=== PATIENT | male | born 1955 | race African-American/Black ===

== ENCOUNTER 2016-12-19 11:25 | Inpatient (IN) | payer OTHER ==
[2016-12-19 14:34] VITALS: BMI 25.4
--- NOTE | 2016-12-19 14:45 | HP ---
CIWA Score - CIWA Score Nausea/Vomitin Muscle Tremors: 2 Anxiety: 2 Agitation: 2 Paroxysmal Sweats: 2 Orientation: 0-Oriented Tacttile Disturbances: 2-Mild Itch/Numbness/Burn Auditory Disturbances: 1-Very Mild Visual Disturbances: 1-Very Mild Sensitivity Headache: 2-Mild CIWA-Ar Total Score: 16 Admission ROS BHS - HPI Chief Complaint: "I need help, I have an apartment now" Allergies/Adverse Reactions: Allergies Allergy/AdvReac Type Severity Reaction Status Date / Time fish derived Allergy Intermediate Vomiting Verified 12/19/16 15:01 Penicillins Allergy Intermediate Vomiting Verified 12/19/16 15:01 [place] Allergy Intermediate Vomiting Uncoded 12/19/16 15:01 History of Present Illness: 61 y/o AA male with longstanding h/o alcohol dependence presents for rehab. His last treatment as he reports was in November of last year at [facility]. Exam Limitations: No Limitations - Ebola screening Have you traveled outside of the country in the last 21 days: No Have you had contact with anyone from an Ebola affected area: No Have you been sick,other than usual withdrawal symptoms: No Do you have a fever: No - Review of Systems Constitutional: Chills, Loss of Appetite, Unintentional Wgt. Loss Respiratory: reports: No Symptoms reported Cardiac: reports: Chest Pain GI: reports: Nausea, Poor Fluid Intake : reports: No Symptoms Reported Musculoskeletal: reports: Muscle Weakness Integumentary: reports: No Symptoms Reported Neuro: reports: Headache, Numbness, Tingling Endocrine: reports: Unexplained Weight Loss Hematology: reports: No Symptoms Reported Psychiatric: reports: No Sypmtoms Reported Other Systems: Reviewed and Negative Patient History - Patient Medical History Hx Anemia: No Hx Asthma: No Hx Chronic Obstructive Pulmonary Disease (COPD): No Hx Cancer: No Hx Cardiac Disorders: No Hx Congestive Heart Failure: No Hx Hypertension: No Hx Hypercholesterolemia: No Hx Pacemaker: No HX Cerebrovascular Accident: No Hx Seizures: No Hx Dementia: No Hx Diabetes: No Hx Gastrointestinal Disorders: No Hx Liver Disease: No Hx Genitourinary Disorders: No Hx Sexually Transmitted Disorders: No Hx Renal Disease (ESRD): No Hx Thyroid Disease: No Hx Human Immunodeficiency Virus (HIV): No Hx Hepatitis C: No Hx Depression: No Hx Suicide Attempt: No Hx Bipolar Disorder: Yes Hx Schizophrenia: No - Patient Surgical History Past Surgical History: Yes Hx Neurologic Surgery: No Hx Cataract Extraction: No Hx Cardiac Surgery: No Hx Lung Surgery: No Hx Breast Surgery: No Hx Breast Biopsy: No Hx Abdominal Surgery: No Hx Appendectomy: No Hx Cholecystectomy: No Hx Genitourinary Surgery: No Hx Section: No Hx Orthopedic Surgery: Yes (Rt leg ORIF) Anesthesia Reaction: No - Smoking Cessation Smoking history: Current every day smoker Have you smoked in the past 12 months: Yes Aproximately how many cigarettes per day: 10 Cigars Per Day: 0 Hx Chewing Tobacco Use: No Initiated information on smoking cessation: Yes 'Breaking Loose' booklet given: 12/19/16 - Substance & Tx. History Hx Alcohol Use: Yes (mauricioardi) Hx Substance Use: Yes Substance Use Type: Cocaine, Marijuana - Substances Abused Alcohol Route: Oral Frequency: Daily Amount used: 1.5 pint Age of first use: 18 Date of Last Use: 12/19/16 Family Disease History - Family Disease History Family Disease History: [place]: Mother (stomach, ) Admission Physical Exam [facility] - Vital Signs Vital Signs: Vital Signs - 24 hr 12/19/16 14:32 Temperature 97 F L Pulse Rate 81 Respiratory 20 Rate Blood Pressure 111/77 - Physical General Appearance: Yes: No Apparent Distress HEENTM: Yes: Hearing grossly Normal, Normocephalic, Normal Voice, Pharynx Normal Respiratory: Yes: Chest Non-Tender, Lungs Clear, Normal Breath Sounds, No Respiratory Distress, No Accessory Muscle Use Neck: Yes: No masses,lesions,Nodules, Supple Breast: Yes: Breast Exam Deferred Cardiology: Yes: Regular Rhythm, Regular Rate, S1, S2 Abdominal: Yes: Normal Bowel Sounds, Non Tender, Flat, Soft Genitourinary: Yes: Within Normal Limits Back: Yes: Normal Inspection Musculoskeletal: Yes: full range of Motion, Pelvis Stable, Muscle weakness Extremities: Yes: Non-Tender, Tremors, Other (fungus to the toes) Neurological: Yes: Fully Oriented, Alert, Normal Response Integumentary: Yes: Normal Color, Dry Lymphatic: Yes: Within Normal Limits Cleared for Admission [facility] - Detox or Rehab [facility] Level of Care: Medically Managed Detox Regimen/Protocol: Librium [facility] Breath Alcohol Content Breath Alcohol Content: 0 Urine Drug Screen - Results Drug Screen Negative: No Urine Drug Screen Results: THC-Marijuana, JAUN-Cocaine
[2016-12-19] MEDS ORDERED: guaiFENesin/D-METHORPHAN HB 10 ML UNIT-DOSE CUPS PO PRN (15:01)
[2016-12-19] MEDS ORDERED: NICOTINE POLACRILEX 2 MG GUM BC PRN (15:01)
[2016-12-19] MEDS ORDERED: chlordiazePOXIDE HCL 25 MG CAPSULE PO PRN (15:01)
[2016-12-19] MEDS ORDERED: MENTHOL/PHENOL 1 EACH UD MM PRN (15:01)
[2016-12-19] MEDS ORDERED: ACETAMINOPHEN 325 MG TABLET (FP) PO PRN (15:01)
[2016-12-19] MEDS ORDERED: MAG HYDROX/AL HYDROX/SIMETH 30 ML UNIT-DOSE CUP PO PRN (15:01)
[2016-12-19] MEDS ORDERED: LOPERAMIDE HCL 2 MG CAPSULE PO PRN (15:01)
[2016-12-19] MEDS ORDERED: MAGNESIUM CITRATE 300 ML BOTTLE PO PRN (15:01)
[2016-12-19] MEDS ORDERED: hydrOXYzine PAMOATE 50 MG CAPSULE (FP) PO PRN (15:01)
[2016-12-19] MEDS ORDERED: P-EPHED 60MG/TRIPROLIDI 2.5MG TABLET PO PRN (15:01)
[2016-12-19] MEDS ORDERED: chlordiazePOXIDE HCL 25 MG CAPSULE PO ONE (15:01)
[2016-12-19] MEDS ORDERED: IBUPROFEN 400 MG TABLET (FP) PO PRN (15:01)
[2016-12-19] MEDS ORDERED: MAGNESIUM HYDROX 2400MG/30ML ORAL SUSPENSION 30 ML CUP PO PRN (15:01)
[2016-12-19] MEDS: NICOTINE 14 MG/24 HOURS TOPICAL PATCH TD SCH (16:45)
[2016-12-19] MEDS: chlordiazePOXIDE HCL 25 MG CAPSULE PO SCH ×2 (16:48→22:28)
[2016-12-19 18:18] LABS: URINE APPEARANCE CLEAR; URINE BILIRUBIN NEGATIVE (NEGATIVE); URINE BLOOD NEGATIVE (NEGATIVE); URINE COLOR YELLOW; URINE GLUCOSE (UA) NEGATIVE (NEGATIVE); URINE KETONE TRACE (NEGATIVE); URINE NITRITE NEGATIVE (NEGATIVE); URINE PROTEIN NEGATIVE (NEGATIVE); URINE UROBILINOGEN NEGATIVE mg/dL (0.2-1.0)
[2016-12-19 18:19] LABS: URINE LEUK ESTERASE 1+ (NEGATIVE)
[2016-12-19 18:22] LABS: URINE MUCUS RARE; URINE RBC 3 /hpf (0-3); URINE WBC 2 /hpf (3-5)
[2016-12-19] MEDS: THIAMINE HCL 100 MG TABLET (FP) PO SCH (22:27)
[2016-12-19] MEDS: diphenhydrAMINE HCL 50 MG CAPSULE PO PRN (22:27)
[2016-12-20] MEDS: chlordiazePOXIDE HCL 25 MG CAPSULE PO SCH ×4 (05:51→22:42)
--- NOTE | 2016-12-20 07:09 | PN ---
[facility] CIWA - CIWA Score Nausea/Vomitin Muscle Tremors: 3 Anxiety: 3 Agitation: 2 Paroxysmal Sweats: No Perspiration Orientation: 1-Uncertain about Date Tacttile Disturbances: 1-Very Mild Itch/Numbness Auditory Disturbances: 1-Very Mild Visual Disturbances: 1-Very Mild Sensitivity Headache: 2-Mild CIWA-Ar Total Score: 17 BHS Progress Note (SOAP) Subjective: alert,irritable,anxious,interrupted sleep,tremor Objective: 12/20/16 07:07 Vital Signs Temperature 97.3 F L 12/20/16 06:00 Pulse Rate 81 12/20/16 06:00 Respiratory Rate 18 12/20/16 06:00 Blood Pressure 114/80 12/20/16 06:00 O2 Sat by Pulse Oximetry (%) ekg nsr,prolong qt no chest pain,no sob,no dizziness Laboratory Last Values Urine Color Yellow 12/19/16 16:09 Urine Appearance Clear 12/19/16 16:09 Urine pH 5.0 (5.0-8.0) 12/19/16 16:09 Ur Specific [place] >= 1.030 (1.005-1.025) H 12/19/16 16:09 Urine Protein Negative (NEGATIVE) 12/19/16 16:09 Urine Glucose (UA) Negative (NEGATIVE) 12/19/16 16:09 Urine Ketones Trace (NEGATIVE) H 12/19/16 16:09 Urine Blood Negative (NEGATIVE) 12/19/16 16:09 Urine Nitrite Negative (NEGATIVE) 12/19/16 16:09 Urine Bilirubin Negative (NEGATIVE) 12/19/16 16:09 Urine Urobilinogen Negative mg/dL (0.2-1.0) 12/19/16 16:09 Ur Leukocyte Esterase 1+ (NEGATIVE) H 12/19/16 16:09 Urine RBC 3 /hpf (0-3) 12/19/16 16:09 Urine WBC 2 /hpf (3-5) 12/19/16 16:09 Urine Mucus Rare 12/19/16 16:09 labs pending Assessment: 12/20/16 07:08 withdrawal symptom Plan: continue detox
[2016-12-20 10:08] LABS: MCH 28.5 pg (25.7-33.7); MCHC 32.7 g/dl (32.0-35.9); MEAN CELL VOLUME 87.3 fl (80-96); MEAN PLT VOLUME 8.8 fl (7.5-11.1); PLATELET COUNT 209 K/MM3 (134-434); RDW 14.2 % (11.9-15.9)
[2016-12-20 10:22] LABS: ALBUMIN 3.7 g/dl (3.4-5.0); ALK PHOS 85 U/L (45-117); ANION GAP 7 (8-16); BILIRUBIN,TOTAL 0.3 mg/dL (0.2-1.0); CALCIUM 8.7 mg/dL (8.5-10.1); CO2 26 mmol/L (21-32); CREATININE 1.2 mg/dL (0.7-1.3); GLUCOSE,RANDOM 84 mg/dL (74-106); SGOT/AST 15 U/L (15-37); SGPT/ALT 21 U/L (12-78); TOT PROT 7.2 g/dl (6.4-8.2)
[2016-12-20] MEDS: NICOTINE 14 MG/24 HOURS TOPICAL PATCH TD SCH (10:32)
[2016-12-20] MEDS: PRENATAL VITAMINS W/ FOLIC ACID TABLET (FP) PO SCH (10:32)
--- NOTE | 2016-12-20 13:29 | EKG ---
Test Reason : Blood Pressure : / mmHG Vent. Rate : 088 BPM Atrial Rate : 088 BPM P-R Int : 166 ms QRS Dur : 080 ms QT Int : 406 ms P-R-T Axes : 071 043 049 degrees QTc Int : 491 ms NORMAL SINUS RHYTHM PROLONGED QT ABNORMAL ECG NO PREVIOUS ECGS AVAILABLE Confirmed by FARRUKH TYLER, CAROLEE ([id number]) on 12/20/2016 1:28:39 PM Referred By: Confirmed By:CAROLEE CHADWICK MD
[2016-12-20] MEDS: NYSTATIN POWDER 100,000 UNITS/GM - 15 GM TOPICAL POWDER TP SCH (13:53)
[2016-12-20] MEDS: THIAMINE HCL 100 MG TABLET (FP) PO SCH (22:42)
[2016-12-20] MEDS: diphenhydrAMINE HCL 50 MG CAPSULE PO PRN (22:42)
[2016-12-21] MEDS: chlordiazePOXIDE HCL 25 MG CAPSULE PO SCH ×2 (06:44→10:21)
--- NOTE | 2016-12-21 08:57 | PN ---
S CIWA - CIWA Score Nausea/Vomitin Muscle Tremors: 3 Anxiety: 3 Agitation: 3 Paroxysmal Sweats: 1-Minimal Palms Moist Orientation: 0-Oriented Tacttile Disturbances: 1-Very Mild Itch/Numbness Auditory Disturbances: 1-Very Mild Visual Disturbances: 1-Very Mild Sensitivity Headache: 2-Mild CIWA-Ar Total Score: 18 BHS Progress Note (SOAP) Subjective: ALERT,IRRITABLE,ANXIOUS,INTERRUPTED SLEEP,TREMOR Objective: 12/21/16 08:55 Vital Signs Temperature 96.9 F L 12/21/16 06:03 Pulse Rate 78 12/21/16 06:03 Respiratory Rate 18 12/21/16 06:03 Blood Pressure 136/86 12/21/16 06:03 O2 Sat by Pulse Oximetry (%) Laboratory Last Values WBC 6.0 K/mm3 (4.0-10.0) 12/20/16 07:15 RBC 5.01 M/mm3 (4.00-5.60) 12/20/16 07:15 Hgb 14.3 GM/dL (11.7-16.9) 12/20/16 07:15 Hct 43.8 % (35.4-49) 12/20/16 07:15 MCV 87.3 fl (80-96) 12/20/16 07:15 MCH 28.5 pg (25.7-33.7) 12/20/16 07:15 MCHC 32.7 g/dl (32.0-35.9) 12/20/16 07:15 RDW 14.2 % (11.9-15.9) 12/20/16 07:15 Plt Count 209 K/MM3 (134-434) 12/20/16 07:15 MPV 8.8 fl (7.5-11.1) 12/20/16 07:15 Sodium 139 mmol/L (136-145) 12/20/16 07:15 Potassium 4.5 mmol/L (3.5-5.1) 12/20/16 07:15 Chloride 106 mmol/L (98-107) 12/20/16 07:15 Carbon Dioxide 26 mmol/L (21-32) 12/20/16 07:15 Anion Gap 7 (8-16) L 12/20/16 07:15 BUN 18 mg/dL (7-18) 12/20/16 07:15 Creatinine 1.2 mg/dL (0.7-1.3) 12/20/16 07:15 Creat Clearance w eGFR > 60 (>60) 12/20/16 07:15 Random Glucose 84 mg/dL (74-106) D 12/20/16 07:15 Calcium 8.7 mg/dL (8.5-10.1) 12/20/16 07:15 Total Bilirubin 0.3 mg/dL (0.2-1.0) D 12/20/16 07:15 AST 15 U/L (15-37) D 12/20/16 07:15 ALT 21 U/L (12-78) D 12/20/16 07:15 Alkaline Phosphatase 85 U/L (45-117) 12/20/16 07:15 Total Protein 7.2 g/dl (6.4-8.2) 12/20/16 07:15 Albumin 3.7 g/dl (3.4-5.0) 12/20/16 07:15 Urine Color Yellow 12/19/16 16:09 Urine Appearance Clear 12/19/16 16:09 Urine pH 5.0 (5.0-8.0) 12/19/16 16:09 Ur Specific [place] >= 1.030 (1.005-1.025) H 12/19/16 16:09 Urine Protein Negative (NEGATIVE) 12/19/16 16:09 Urine Glucose (UA) Negative (NEGATIVE) 12/19/16 16:09 Urine Ketones Trace (NEGATIVE) H 12/19/16 16:09 Urine Blood Negative (NEGATIVE) 12/19/16 16:09 Urine Nitrite Negative (NEGATIVE) 12/19/16 16:09 Urine Bilirubin Negative (NEGATIVE) 12/19/16 16:09 Urine Urobilinogen Negative mg/dL (0.2-1.0) 12/19/16 16:09 Ur Leukocyte Esterase 1+ (NEGATIVE) H 12/19/16 16:09 Urine RBC 3 /hpf (0-3) 12/19/16 16:09 Urine WBC 2 /hpf (3-5) 12/19/16 16:09 Urine Mucus Rare 12/19/16 16:09 RPR Titer Reactive 1:1 (NONREACTIVE) H 12/20/16 07:15 T.pallidum Ab (MHA) Previously reactive (NONREACTIVE) 12/20/16 07:15 PATIENT HAD HSTORY OF SYPHILIS TREATED Assessment: 12/21/16 08:56 WITHDRAWAL SYMPTOM Plan: CONTINUE DETOX
[2016-12-21] MEDS: NICOTINE 14 MG/24 HOURS TOPICAL PATCH TD SCH (10:21)
[2016-12-21] MEDS: NYSTATIN POWDER 100,000 UNITS/GM - 15 GM TOPICAL POWDER TP SCH (10:21)
[2016-12-21] MEDS: PRENATAL VITAMINS W/ FOLIC ACID TABLET (FP) PO SCH (10:21)
--- NOTE | 2016-12-21 12:14 | CONSULT ---
[facility] Psychiatric Consult - Data Date of interview: 12/21/16 Admission source: [facility] Identifying data: This is 61 years old male with unknown past psychiatric history, iontoxicated with: Alcohol, Cocaine and Nicotine Substance Abuse History: Denies Medical History: LBP, Weight loss, Psychiatric History: Patient reprots history of depression, reports no medications taking prior to admission Physical/Sexual Abuse/Trauma History: Denies Additional Comment: Observation. Detox Care Protocol Mental Status Exam - Mental Status Exam Alert and Oriented to: Person Cognitive Function: Fair Patient Appearance: Unkempt Mood: Angry, Suspicious Affect: Inappropriate, Constricted Patient Behavior: Uncooperative Speech Pattern: Pressured Voice Loudness: Normal Thought Process: Circumstantial Thought Disorder: Being Controlled Hallucinations: Denies Suicidal Ideation: Denies Homicidal Ideation: Denies Insight/Judgement: Fair Sleep: Difficulty falling asleep Appetite: Weight loss Muscle strength/Tone: Moderate Hypotonicity Gait/Station: Normal Additional Comments: Observation. Detox Care Protocol Psychiatric Findings - Problem List ([place] 1, 2,3) (1) Alcohol dependence Current Visit: No Status: Acute (2) Cocaine dependence Current Visit: No Status: Acute (3) Nicotine dependence Current Visit: No Status: Acute (4) Drug-induced mood disorder Current Visit: Yes Status: Acute - Initial Treatment Plan Initial Treatment Plan: Observation. Detox Care Protocol
[2016-12-21] MEDS: chlordiazePOXIDE 5 MG CAPSULE PO SCH ×2 (17:38→22:17)
[2016-12-21] MEDS: THIAMINE HCL 100 MG TABLET (FP) PO SCH (22:17)
[2016-12-22] MEDS: chlordiazePOXIDE 5 MG CAPSULE PO SCH ×2 (06:06→10:55)
--- NOTE | 2016-12-22 09:16 | PN ---
S Progress Note (SOAP) Subjective: ALERT,IRRITABLE,ANXIOUS,INTERRUPTED SLEEP Objective: 12/22/16 09:15 Vital Signs Temperature 97.2 F L 12/22/16 06:21 Pulse Rate 84 12/22/16 06:21 Respiratory Rate 18 12/22/16 06:21 Blood Pressure 137/78 12/22/16 06:21 O2 Sat by Pulse Oximetry (%) Assessment: 12/22/16 09:15 WITHDRAWAL SYMPTOM Plan: CONTINUE DETOX,DISCHARGE IN AM
[2016-12-22] MEDS: NYSTATIN POWDER 100,000 UNITS/GM - 15 GM TOPICAL POWDER TP SCH (10:54)
[2016-12-22] MEDS: PRENATAL VITAMINS W/ FOLIC ACID TABLET (FP) PO SCH (10:55)
[2016-12-22] MEDS: NICOTINE 14 MG/24 HOURS TOPICAL PATCH TD SCH (10:55)
[2016-12-22] MEDS: chlordiazePOXIDE HCL 10 MG CAPSULE PO SCH ×2 (17:20→22:35)
[2016-12-22] MEDS: THIAMINE HCL 100 MG TABLET (FP) PO SCH ×2 (22:35→22:37)
[2016-12-23] MEDS: chlordiazePOXIDE HCL 10 MG CAPSULE PO SCH ×2 (06:21→11:43)
--- NOTE | 2016-12-23 08:13 | DS ---
[facility] Detox Discharge Summary Admission Date: 12/19/16 Discharge Date: 12/23/16 - History Present History: Alcohol Dependence, Cocaine Dependence - Physical Exam Results Vital Signs: Vital Signs Temperature 97.7 F 12/23/16 06:35 Pulse Rate 87 12/23/16 06:35 Respiratory Rate 18 12/23/16 06:35 Blood Pressure 129/83 12/23/16 06:35 O2 Sat by Pulse Oximetry (%) - Treatment Hospital Course: Detox Protocol Followed, Detoxed Safely, Responded well, Discharged Condition Good - Medication Discharge Medications: Ambulatory Orders NK [No Known Home Medication] 11/08/13 - Diagnosis (1) Alcohol dependence Current Visit: Yes Status: Chronic Qualifiers: Substance use status: uncomplicated Qualified Code(s): F10.20 - Alcohol dependence, uncomplicated (2) Cocaine dependence Current Visit: Yes Status: Chronic Qualifiers: Substance use status: uncomplicated Qualified Code(s): F14.20 - Cocaine dependence, uncomplicated (3) Depression Current Visit: Yes Status: Chronic (4) Nicotine dependence Current Visit: Yes Status: Chronic Qualifiers: Nicotine product type: cigarettes Substance use status: uncomplicated Qualified Code(s): F17.210 - Nicotine dependence, cigarettes, uncomplicated (5) Syphilis contact, treated Current Visit: No Status: Inactive - AMA Did Patient Leave Against Medical Advice: No
[2016-12-23] MEDS: NYSTATIN POWDER 100,000 UNITS/GM - 15 GM TOPICAL POWDER TP SCH ×2 (11:43→11:44)
[2016-12-23] MEDS: PRENATAL VITAMINS W/ FOLIC ACID TABLET (FP) PO SCH (11:43)
[2016-12-23] MEDS: NICOTINE 14 MG/24 HOURS TOPICAL PATCH TD SCH (11:43)
[2016-12-23 12:01] VITALS: BP 122/67; PULSE 97; TEMP 98.1
== END 2016-12-23 12:45 | disposition other institution (70) | DRG 774 ==
LOC: YASAS 11:25 → Y6N 15:05
PROVIDERS: ADMIT Internal Medicine; ATTEND Internal Medicine
PROC: HZ2ZZZZ Detoxification Services for Substance Abuse Treatment (ICD-10-PCS; principal; 2016-12-19)
DX: F10.230 Alcohol dependence with withdrawal, uncomplicated (principal); F14.20 Cocaine dependence, uncomplicated; F17.210 Nicotine dependence, cigarettes, uncomplicated; F32.9 Major depressive disorder, single episode, unspecified; F19.24 Other psychoactive substance dependence with psychoactive substance-induced mood disorder; Z87.438 Personal history of other diseases of male genital organs
CPT/HCPCS: 36415; 71020-TC; 80053; 81003; 81015; 85027; 86593; 86780; 93005; 93010

== ENCOUNTER 2016-12-23 12:51 | Inpatient (IN) | payer OTHER ==
[2016-12-23 13:10] VITALS: BP 129/82; PULSE 95; TEMP 98.5
[2016-12-23] MEDS ORDERED: NICOTINE POLACRILEX 2 MG GUM BUC PRN (15:02)
[2016-12-23] MEDS ORDERED: MENTHOL/PHENOL 1 EACH UD MM PRN (15:02)
[2016-12-23] MEDS ORDERED: MAGNESIUM HYDROX 2400MG/30ML ORAL SUSPENSION 30 ML CUP PO PRN (15:02)
[2016-12-23] MEDS ORDERED: hydrOXYzine PAMOATE 50 MG CAPSULE (FP) PO PRN (15:02)
[2016-12-23] MEDS ORDERED: guaiFENesin/D-METHORPHAN HB 10 ML UNIT-DOSE CUPS PO PRN (15:02)
[2016-12-23] MEDS ORDERED: IBUPROFEN 400 MG TABLET (FP) PO PRN (15:02)
[2016-12-23] MEDS ORDERED: P-EPHED 60MG/TRIPROLIDI 2.5MG TABLET PO PRN (15:02)
[2016-12-23] MEDS ORDERED: MAG HYDROX/AL HYDROX/SIMETH 30 ML UNIT-DOSE CUP PO PRN (15:02)
[2016-12-23] MEDS ORDERED: LOPERAMIDE HCL 2 MG CAPSULE PO PRN (15:02)
[2016-12-23] MEDS ORDERED: diphenhydrAMINE HCL 50 MG CAPSULE PO PRN (15:02)
[2016-12-23] MEDS ORDERED: MAGNESIUM CITRATE 300 ML BOTTLE PO PRN (15:02)
[2016-12-23] MEDS ORDERED: ACETAMINOPHEN 325 MG TABLET (FP) PO PRN (15:02)
[2016-12-23] MEDS ORDERED: THIAMINE HCL 100 MG TABLET (FP) PO SCH (22:00)
--- NOTE | 2016-12-23 22:04 | HP ---
PATRICIA TYLER Rehab Assess/Revision - Admission History Admitted to Rehab from: [facility] [address] [place] Date of Admission to Rehab: 12/23/16 - Vital signs Vital Signs: Vital Signs Period Temp Pulse Resp BP Sys/Griffin Pulse Ox Last 24 Hr 98.5 F 95 18 129/82 - Findings Detox History & Physical reviewed: Yes Concur with findings: Yes Comments/Additional Findings: FOR REHAB PROTOCOL
--- NOTE | 2016-12-24 08:01 | PN ---
S Progress Note Note: patient left AMA on 12/23/16 prior to be seen by a psychiatrist for admission, please see medical staff notes.
[2016-12-24] MEDS ORDERED: PRENATAL VITAMINS W/ FOLIC ACID TABLET (FP) PO SCH (10:00)
[2016-12-24] MEDS ORDERED: NICOTINE 14 MG/24 HOURS TOPICAL PATCH TD SCH (10:00)
[2016-12-24] MEDS ORDERED: NICOTINE 21 MG/24 HOURS TOPICAL PATCH TD SCH (10:00)
== END 2016-12-23 15:35 | disposition left against medical advice (07) | DRG 770 ==
LOC: YASAS 12:51 → Y5N 12:52
PROVIDERS: ADMIT Psychiatry & Neurology Psychiatry; ATTEND Psychiatry & Neurology Psychiatry
PROC: HZ42ZZZ Group Counseling for Substance Abuse Treatment, Cognitive-Behavioral (ICD-10-PCS; principal; 2016-12-23)
DX: F10.20 Alcohol dependence, uncomplicated (principal); F14.20 Cocaine dependence, uncomplicated; F17.210 Nicotine dependence, cigarettes, uncomplicated

== ENCOUNTER 2019-04-20 08:43 | Inpatient (IN) | payer OTHER ==
[2019-04-20 09:05] VITALS: BMI 27.1
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
[2019-04-20] MEDS ORDERED: MAGNESIUM HYDROX 2400MG/30ML ORAL SUSPENSION 30 ML CUP PO PRN (09:45)
[2019-04-20] MEDS ORDERED: MAG HYDROX/AL HYDROX/SIMETH 30 ML UNIT-DOSE CUP PO PRN (09:45)
[2019-04-20] MEDS ORDERED: MENTHOL/PHENOL 1 EACH UD MM PRN (09:45)
[2019-04-20] MEDS ORDERED: P-EPHED 60MG/TRIPROLIDI 2.5MG TABLET PO PRN (09:45)
[2019-04-20] MEDS ORDERED: guaiFENesin 200 MG/10 ML 10 ML UNIT-DOSE CUPS PO PRN (09:45)
[2019-04-20] MEDS ORDERED: ACETAMINOPHEN 325 MG TABLET (FP) PO PRN (09:45)
[2019-04-20] MEDS ORDERED: MAGNESIUM CITRATE 300 ML BOTTLE PO PRN (09:45)
[2019-04-20] MEDS ORDERED: LOPERAMIDE HCL 2 MG CAPSULE PO PRN (09:45)
[2019-04-20] MEDS ORDERED: IBUPROFEN 400 MG TABLET (FP) PO PRN (09:45)
[2019-04-20] MEDS: TOLNAFTATE 1% CREAM 15 GM TUBE TP SCH ×2 (11:05→22:21)
[2019-04-20] MEDS: PRENATAL VITAMINS W/ FOLIC ACID TABLET (FP) PO SCH (11:05)
[2019-04-20 14:44] LABS: HEMATOCRIT 41.5 % (35.4-49); HEMOGLOBIN 13.4 GM/dL (11.7-16.9); MCH 28.7 pg (25.7-33.7); MCHC 32.3 g/dl (32.0-35.9); MEAN CELL VOLUME 88.8 fl (80-96); MEAN PLT VOLUME 9.2 fl (7.5-11.1); PLATELET COUNT 232 K/MM3 (134-434); RBC 4.67 M/mm3 (4.00-5.60); RDW 13.6 % (11.9-15.9); WHITE BLOOD COUNT 6.5 K/mm3 (4.0-10.0)
[2019-04-20 14:56] LABS: ALBUMIN 3.7 g/dl (3.4-5.0); BILIRUBIN,TOTAL 0.4 mg/dL (0.2-1); BLOOD UREA NITROGEN 16.6 mg/dL (7-18); CALCIUM 8.9 mg/dL (8.5-10.1); CREATININE 1.3 mg/dL (0.55-1.3); POTASSIUM 4.2 mmol/L (3.5-5.1); TOT PROT 7.2 g/dl (6.4-8.2)
[2019-04-20] MEDS: THIAMINE HCL 100 MG TABLET (FP) PO SCH (22:21)
[2019-04-21 07:53] LABS: RPR REACTIVE 1:1 (NONREACTIVE)
[2019-04-21 07:54] LABS: TREPONEMA ANTIBODY PREVIOUSLY REACTIVE (NONREACTIVE)
[2019-04-21] MEDS ORDERED: PT OWN MED DRAWER 7, Y5N ONE (09:07)
[2019-04-21] MEDS: TOLNAFTATE 1% CREAM 15 GM TUBE TP SCH ×2 (09:48→21:47)
[2019-04-21] MEDS: PRENATAL VITAMINS W/ FOLIC ACID TABLET (FP) PO SCH (09:48)
[2019-04-21 10:24] LABS: URINE APPEARANCE CLEAR; URINE BILIRUBIN NEGATIVE (NEGATIVE); URINE COLOR YELLOW; URINE GLUCOSE (UA) NEGATIVE (NEGATIVE); URINE KETONE NEGATIVE (NEGATIVE); URINE LEUK ESTERASE NEGATIVE (NEGATIVE); URINE NITRITE NEGATIVE (NEGATIVE); URINE PROTEIN NEGATIVE (NEGATIVE); URINE UROBILINOGEN 0.2 mg/dL (0.2-1.0)
--- NOTE | 2019-04-21 10:46 | PN ---
[facility] Progress Note Note: PATIENT SEEN FOR FOLLOW UP POSITIVE RPR. PATIENT STATES HE HAD SYPHILIS IN PAST , HOWEVER, PREVIOUS TESTS SHOW NEGATIVE RESULTS. PATIENT ADMITTED IN AUGUST AND NOVEMBER OF THIS YEAR AND RPR NONREACTIVE. PATIENT DENIES ANY SYMPTOMS OF PAIN/ BURNING UPON URINATION, FEVER, RASH ON PALMS OF HANDS, AND GROIN DISCOMFORT. HAS ALLERGY TO PCN. Laboratory Tests 04/20/19 04/20/19 04/20/19 10:30 10:30 10:30 WBC 6.5 RBC 4.67 Hgb 13.4 Hct 41.5 MCV 88.8 MCH 28.7 MCHC 32.3 RDW 13.6 Plt Count 232 MPV 9.2 Sodium 136 Potassium 4.2 Chloride 103 Carbon Dioxide 27 Anion Gap 6 L BUN 16.6 Creatinine 1.3 Est GFR (CKD-EPI)AfAm 68.25 Est GFR (CKD-EPI)NonAf 58.89 Random Glucose 69 L Calcium 8.9 Total Bilirubin 0.4 AST 20 ALT 26 Alkaline Phosphatase 84 Total Protein 7.2 Albumin 3.7 Urine Color Urine Appearance Urine pH Ur Specific [place] Urine Protein Urine Glucose (UA) Urine Ketones Urine Blood Urine Nitrite Urine Bilirubin Urine Urobilinogen Ur Leukocyte Esterase RPR Titer Reactive 1:1 H T.pallidum Ab (MHA) Previously reactive 04/21/19 08:30 WBC RBC Hgb Hct MCV MCH MCHC RDW Plt Count MPV Sodium Potassium Chloride Carbon Dioxide Anion Gap BUN Creatinine Est GFR (CKD-EPI)AfAm Est GFR (CKD-EPI)NonAf Random Glucose Calcium Total Bilirubin AST ALT Alkaline Phosphatase Total Protein Albumin Urine Color Yellow Urine Appearance Clear Urine pH 5.0 Ur Specific [place] 1.022 Urine Protein Negative Urine Glucose (UA) Negative Urine Ketones Negative Urine Blood Negative Urine Nitrite Negative Urine Bilirubin Negative Urine Urobilinogen 0.2 Ur Leukocyte Esterase Negative RPR Titer T.pallidum Ab (MHA) PE: ALERT AND ORIENTED X 3 SKIN WARM AND DRY, NO RASHES, LESIONS +PERRLA, EOMS INTACT BL CAR S1S2 RESP CTA BL GI/ BS+, NT, ND, NO PELVIC TENDERNESS A/P: +RPR/MHA WILL TREAT WITH DOXYCYCLINE 100MG PO BID X 14 DAYS MONITOR CLINICALLY
[2019-04-21] MEDS: DOXYCYCLINE HYCLATE 100 MG TABLET PO SCH (17:58)
[2019-04-21] MEDS: THIAMINE HCL 100 MG TABLET (FP) PO SCH (21:46)
[2019-04-22] MEDS: TOLNAFTATE 1% CREAM 15 GM TUBE TP SCH ×2 (10:07→21:19)
[2019-04-22] MEDS: DOXYCYCLINE HYCLATE 100 MG TABLET PO SCH ×2 (10:07→18:25)
[2019-04-22] MEDS: THIAMINE HCL 100 MG TABLET (FP) PO SCH (21:19)
[2019-04-22] MEDS: MELATONIN 5 MG TABLETS PO PRN (21:19)
[2019-04-23] MEDS ORDERED: PT OWN MED DRAWER 7, Y5N ONE (08:43)
[2019-04-23] MEDS: DOXYCYCLINE HYCLATE 100 MG TABLET PO SCH ×2 (10:46→18:35)
[2019-04-23] MEDS: TOLNAFTATE 1% CREAM 15 GM TUBE TP SCH ×2 (10:46→21:47)
[2019-04-23] MEDS: MELATONIN 5 MG TABLETS PO PRN (21:19)
[2019-04-23] MEDS: THIAMINE HCL 100 MG TABLET (FP) PO SCH (21:19)
[2019-04-24] MEDS: DOXYCYCLINE HYCLATE 100 MG TABLET PO SCH ×2 (09:47→19:10)
[2019-04-24] MEDS: TOLNAFTATE 1% CREAM 15 GM TUBE TP SCH ×2 (09:47→21:44)
[2019-04-24] MEDS: THIAMINE HCL 100 MG TABLET (FP) PO SCH (21:43)
[2019-04-25] MEDS: DOXYCYCLINE HYCLATE 100 MG TABLET PO SCH ×2 (09:48→18:20)
[2019-04-25] MEDS: TOLNAFTATE 1% CREAM 15 GM TUBE TP SCH ×2 (09:48→21:39)
[2019-04-25] MEDS: THIAMINE HCL 100 MG TABLET (FP) PO SCH (21:39)
[2019-04-25] MEDS: MELATONIN 5 MG TABLETS PO PRN (21:39)
[2019-04-26 07:00] VITALS: BP 108/68; PULSE 76; TEMP 97.7
[2019-04-26] MEDS ORDERED: PT OWN MED DRAWER 7, Y5N ONE (08:44)
[2019-04-26] MEDS: DOXYCYCLINE HYCLATE 100 MG TABLET PO SCH ×2 (09:06→17:10)
[2019-04-26] MEDS: TOLNAFTATE 1% CREAM 15 GM TUBE TP SCH (09:06)
--- NOTE | 2019-04-26 19:25 | DS ---
[facility] Rehab Discharge Summary - [facility] Rehab Discharge Summary Admission Date: 04/20/19 Discharge Date: 04/26/19 - History Present History: Cocaine dependence Pertinent Past History: Pt was admitted 5 days ago for rehab from cocaine. Pt states he wants to leave today. Pt has no medical problems: had a pos RPR 1:1 with a previous pos confirmatory. Pt was started empirically on doxycline- will continue- pt likely does not need this. Pt will f/u with PCP next month - Discharge Physical Exam Vital Signs: Vital Signs Temperature 97.7 F 04/26/19 06:59 Pulse Rate 76 04/26/19 06:59 Respiratory Rate 18 04/26/19 06:59 Blood Pressure 108/68 04/26/19 06:59 O2 Sat by Pulse Oximetry (%) - Treatment Discharge Condition: Rehabilitated safely - Medication Discharge Medications: Ambulatory Orders NK [No Known Home Medication] 11/08/13 NK [No Known Home Medication] 08/10/17 - Discharge Instructions Diet, activity, other medical instructions: Diet: Activity: Other medical instructions:
== END 2019-04-26 20:05 | disposition home or self-care (01) | DRG 772 ==
LOC: YASAS 08:43 → Y3W 10:40
PROVIDERS: ADMIT Neuromusculoskeletal Medicine & OMM; ATTEND Neuromusculoskeletal Medicine & OMM
PROC: HZ42ZZZ Group Counseling for Substance Abuse Treatment, Cognitive-Behavioral (ICD-10-PCS; principal; 2019-04-20)
DX: F10.20 Alcohol dependence, uncomplicated (principal); F14.20 Cocaine dependence, uncomplicated; F17.210 Nicotine dependence, cigarettes, uncomplicated; R00.0 Tachycardia, unspecified; Z88.0 Allergy status to penicillin; Z91.013 Allergy to seafood; Z91.018 Allergy to other foods; Z87.438 Personal history of other diseases of male genital organs
CPT/HCPCS: 36415; 71046-TC-FY; 80053; 81003; 85027; 86593; 86780

== ENCOUNTER 2019-12-09 19:52 | Inpatient (IN) | payer OTHER ==
[2019-12-09 21:30] VITALS: BMI 27.0
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
[2019-12-09] MEDS ORDERED: IBUPROFEN 400 MG TABLET (FP) PO PRN (22:19)
[2019-12-09] MEDS ORDERED: ACETAMINOPHEN 325 MG TABLET (FP) PO PRN ×2 (22:19)
[2019-12-09] MEDS ORDERED: ONDANSETRON *ODT* 4 MG TABLET SL ONE (22:19)
[2019-12-09] MEDS ORDERED: NICOTINE POLACRILEX 2 MG GUM BUC PRN (22:19)
[2019-12-09] MEDS ORDERED: METHOCARBAMOL 500 MG TABLET PO PRN (22:19)
[2019-12-09] MEDS ORDERED: chlordiazePOXIDE HCL 25 MG CAPSULE PO PRN (22:19)
[2019-12-09] MEDS ORDERED: hydrOXYzine PAMOATE 25 MG CAPSULE (FP) PO PRN (22:19)
[2019-12-09] MEDS ORDERED: BISMUTH SUBSALICYLATE 524 MG/30 ML UD PO PRN (22:19)
[2019-12-09] MEDS ORDERED: MAGNESIUM CITRATE 300 ML BOTTLE PO PRN (22:19)
[2019-12-09] MEDS ORDERED: MAG HYDROX/AL HYDROX/SIMETH 30 ML UNIT-DOSE CUP PO PRN (22:19)
[2019-12-09] MEDS ORDERED: MENTHOL/PHENOL 1 EACH UD MM PRN (22:19)
[2019-12-09] MEDS ORDERED: MAGNESIUM HYDROX 2400MG/30ML ORAL SUSPENSION 30 ML CUP PO PRN (22:19)
[2019-12-09] MEDS: chlordiazePOXIDE HCL 25 MG CAPSULE PO SCH (23:37)
[2019-12-10] MEDS: chlordiazePOXIDE HCL 25 MG CAPSULE PO SCH ×2 (05:15→12:14)
[2019-12-10 09:18] LABS: HEMATOCRIT 41.2 % (35.4-49); HEMOGLOBIN 13.4 GM/dL (11.7-16.9); MCH 28.2 pg (25.7-33.7); MCHC 32.5 g/dl (32.0-35.9); MEAN PLT VOLUME 9.1 fl (7.5-11.1); PLATELET COUNT 234 K/MM3 (134-434); RBC 4.73 M/mm3 (4.00-5.60); RDW 14.3 % (11.9-15.9); WHITE BLOOD COUNT 6.2 K/mm3 (4.0-10.0)
[2019-12-10 09:31] LABS: ALBUMIN 3.5 g/dl (3.4-5.0); BILIRUBIN,TOTAL 0.5 mg/dL (0.2-1); BLOOD UREA NITROGEN 22.9 mg/dL (7-18); CALCIUM 8.5 mg/dL (8.5-10.1); CREATININE 1.3 mg/dL (0.55-1.3); POTASSIUM 3.6 mmol/L (3.5-5.1); TOT PROT 6.7 g/dl (6.4-8.2)
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
[2019-12-10] MEDS: PRENATAL VITAMINS W/ FOLIC ACID TABLET (FP) PO SCH (10:07)
[2019-12-10] MEDS: NICOTINE 14 MG/24 HOURS TOPICAL PATCH TD SCH (10:07)
--- NOTE | 2019-12-10 12:09 | PN ---
[facility] CIWA - CIWA Score Nausea/Vomitin-No Nausea/No Vomiting Muscle Tremors: 2 Anxiety: 3 Agitation: 2 Paroxysmal Sweats: 1-Minimal Palms Moist Orientation: 0-Oriented Tacttile Disturbances: 0-None Auditory Disturbances: 0-None Visual Disturbances: 2-Mild Sensitivity Headache: 0-None Present CIWA-Ar Total Score: 10 S Progress Note (SOAP) Subjective: Complaints of tremors, agitation, anxiety and light sensitivity. Objective: 12/10/19 12:08 Vital Signs 12/10/19 12/10/19 12/10/19 05:07 06:26 09:17 Temperature 98 F 96.9 F L Pulse Rate 87 88 Respiratory 20 20 18 Rate Blood Pressure 107/60 113/73 O2 Sat by Pulse 95 Oximetry (%) Laboratory Last Values WBC 6.2 K/mm3 (4.0-10.0) 12/10/19 07:35 RBC 4.73 M/mm3 (4.00-5.60) 12/10/19 07:35 Hgb 13.4 GM/dL (11.7-16.9) 12/10/19 07:35 Hct 41.2 % (35.4-49) 12/10/19 07:35 MCV 87.0 fl (80-96) 12/10/19 07:35 MCH 28.2 pg (25.7-33.7) 12/10/19 07:35 MCHC 32.5 g/dl (32.0-35.9) 12/10/19 07:35 RDW 14.3 % (11.9-15.9) 12/10/19 07:35 Plt Count 234 K/MM3 (134-434) 12/10/19 07:35 MPV 9.1 fl (7.5-11.1) 12/10/19 07:35 Sodium 139 mmol/L (136-145) 12/10/19 07:35 Potassium 3.6 mmol/L (3.5-5.1) 12/10/19 07:35 Chloride 103 mmol/L (98-107) 12/10/19 07:35 Carbon Dioxide 28 mmol/L (21-32) 12/10/19 07:35 Anion Gap 9 MMOL/L (8-16) 12/10/19 07:35 BUN 22.9 mg/dL (7-18) H 12/10/19 07:35 Creatinine 1.3 mg/dL (0.55-1.3) 12/10/19 07:35 Est GFR (CKD-EPI)AfAm 67.78 12/10/19 07:35 Est GFR (CKD-EPI)NonAf 58.48 12/10/19 07:35 Random Glucose 78 mg/dL (74-106) 12/10/19 07:35 Calcium 8.5 mg/dL (8.5-10.1) 12/10/19 07:35 Total Bilirubin 0.5 mg/dL (0.2-1) 12/10/19 07:35 AST 11 U/L (15-37) L 12/10/19 07:35 ALT 18 U/L (13-61) 12/10/19 07:35 Alkaline Phosphatase 70 U/L (45-117) 12/10/19 07:35 Total Protein 6.7 g/dl (6.4-8.2) 12/10/19 07:35 Albumin 3.5 g/dl (3.4-5.0) 12/10/19 07:35 Syphilis Serology Reactive (NONREACTIVE) A* 12/10/19 07:35 Labs reviewed, Positive RPR. 12/10/19 13:41 Assessment: 12/10/19 12:09 Alert and oriented x3, in no acute respiratory distress Full ROM, skin warm to touch, ambulatory on unit without assistance. Mild withdrawal symptoms. Noted with positive RPR. no lesion noted on patient. Pt was treated for syphilis in the past. Encouraged to follow up with PCP upon discharge and pt verbalized understanding. 12/10/19 13:42 Plan: Continue detox protocol.
[2019-12-10] MEDS ORDERED: LORazepam 1 MG TABLET PO PRN (13:32)
--- NOTE | 2019-12-10 14:23 | EKG ---
Test Reason : Blood Pressure : / mmHG Vent. Rate : 084 BPM Atrial Rate : 084 BPM P-R Int : 168 ms QRS Dur : 076 ms QT Int : 368 ms P-R-T Axes : 070 031 015 degrees QTc Int : 434 ms NORMAL SINUS RHYTHM NONSPECIFIC T WAVE ABNORMALITY ABNORMAL ECG WHEN COMPARED WITH ECG OF 19-DEC-2016 16:29, T WAVE VARIATION Confirmed by PEGGY JEFFERSON MD ([id number]) on 12/10/2019 2:23:30 PM Referred By: DELMI PIEK Confirmed By:PEGGY JEFFERSON MD
[2019-12-10] MEDS: LORazepam 1 MG TABLET PO SCH ×2 (18:15→22:44)
[2019-12-10] MEDS: THIAMINE HCL 100 MG TABLET (FP) PO SCH (22:44)
[2019-12-10] MEDS: MELATONIN 5 MG TABLETS PO SCH (22:46)
[2019-12-11] MEDS ORDERED: chlordiazePOXIDE HCL 25 MG CAPSULE PO SCH (05:00)
[2019-12-11] MEDS: LORazepam 1 MG TABLET PO SCH ×4 (06:36→23:18)
[2019-12-11] MEDS: PRENATAL VITAMINS W/ FOLIC ACID TABLET (FP) PO SCH (10:29)
[2019-12-11] MEDS: NICOTINE 14 MG/24 HOURS TOPICAL PATCH TD SCH (10:30)
--- NOTE | 2019-12-11 11:15 | PN ---
S CIWA - CIWA Score Nausea/Vomitin Muscle Tremors: 2 Anxiety: 2 Agitation: 2 Paroxysmal Sweats: No Perspiration Orientation: 0-Oriented Tacttile Disturbances: 0-None Auditory Disturbances: 0-None Visual Disturbances: 0-None Headache: 2-Mild CIWA-Ar Total Score: 10 BHS Progress Note (SOAP) Subjective: alert,irritable,anxious,interrupted sleep,tremor,pain in the body,ambulation on the unit Objective: 12/11/19 11:13 Vital Signs Temperature 97.5 F L 12/11/19 08:33 Pulse Rate 92 H 12/11/19 08:33 Respiratory Rate 18 12/11/19 08:33 Blood Pressure 119/74 12/11/19 08:33 O2 Sat by Pulse Oximetry (%) 100 12/11/19 05:19 12/11/19 11:13 Laboratory Last Values WBC 6.2 K/mm3 (4.0-10.0) 12/10/19 07:35 RBC 4.73 M/mm3 (4.00-5.60) 12/10/19 07:35 Hgb 13.4 GM/dL (11.7-16.9) 12/10/19 07:35 Hct 41.2 % (35.4-49) 12/10/19 07:35 MCV 87.0 fl (80-96) 12/10/19 07:35 MCH 28.2 pg (25.7-33.7) 12/10/19 07:35 MCHC 32.5 g/dl (32.0-35.9) 12/10/19 07:35 RDW 14.3 % (11.9-15.9) 12/10/19 07:35 Plt Count 234 K/MM3 (134-434) 12/10/19 07:35 MPV 9.1 fl (7.5-11.1) 12/10/19 07:35 Sodium 139 mmol/L (136-145) 12/10/19 07:35 Potassium 3.6 mmol/L (3.5-5.1) 12/10/19 07:35 Chloride 103 mmol/L (98-107) 12/10/19 07:35 Carbon Dioxide 28 mmol/L (21-32) 12/10/19 07:35 Anion Gap 9 MMOL/L (8-16) 12/10/19 07:35 BUN 22.9 mg/dL (7-18) H 12/10/19 07:35 Creatinine 1.3 mg/dL (0.55-1.3) 12/10/19 07:35 Est GFR (CKD-EPI)AfAm 67.78 12/10/19 07:35 Est GFR (CKD-EPI)NonAf 58.48 12/10/19 07:35 Random Glucose 78 mg/dL (74-106) 12/10/19 07:35 Calcium 8.5 mg/dL (8.5-10.1) 12/10/19 07:35 Total Bilirubin 0.5 mg/dL (0.2-1) 12/10/19 07:35 AST 11 U/L (15-37) L 12/10/19 07:35 ALT 18 U/L (13-61) 12/10/19 07:35 Alkaline Phosphatase 70 U/L (45-117) 12/10/19 07:35 Total Protein 6.7 g/dl (6.4-8.2) 12/10/19 07:35 Albumin 3.5 g/dl (3.4-5.0) 12/10/19 07:35 Syphilis Serology Reactive (NONREACTIVE) A* 12/10/19 07:35 RPR Titer Reactive 1:1 (NONREACTIVE) H 12/10/19 07:35 history of syphilis treated in the past Assessment: 12/11/19 11:14 withdrawal symptom Plan: continue detox librium regimen ,encourage fluid,
[2019-12-11] MEDS: MELATONIN 5 MG TABLETS PO SCH (23:18)
[2019-12-11] MEDS: THIAMINE HCL 100 MG TABLET (FP) PO SCH (23:18)
[2019-12-12] MEDS ORDERED: chlordiazePOXIDE HCL 10 MG CAPSULE PO PRN
[2019-12-12] MEDS ORDERED: chlordiazePOXIDE HCL 10 MG CAPSULE PO SCH (05:00)
[2019-12-12] MEDS: LORazepam 1 MG TABLET PO SCH ×4 (05:46→23:03)
--- NOTE | 2019-12-12 07:35 | PN ---
[facility]HAEL[facility] Progress Note Note: addendum patient is on ativan regimen not librium
--- NOTE | 2019-12-12 10:23 | PN ---
[facility] CIWA - CIWA Score Nausea/Vomitin-Mild Nausea/No Vomiting Muscle Tremors: 2 Anxiety: 2 Agitation: 2 Paroxysmal Sweats: No Perspiration Orientation: 0-Oriented Tacttile Disturbances: 1-Very Mild Itch/Numbness Auditory Disturbances: 0-None Visual Disturbances: 0-None Headache: 1-Very Mild CIWA-Ar Total Score: 9 S Progress Note (SOAP) Subjective: alert,irritable,anxious,interrupted sleep,pain in the body and back,nausea Objective: 12/12/19 10:21 Vital Signs Temperature 97.1 F L 12/12/19 08:50 Pulse Rate 88 12/12/19 08:50 Respiratory Rate 18 12/12/19 08:50 Blood Pressure 127/70 12/12/19 08:50 O2 Sat by Pulse Oximetry (%) 97 12/12/19 06:21 Laboratory Last Values WBC 6.2 K/mm3 (4.0-10.0) 12/10/19 07:35 RBC 4.73 M/mm3 (4.00-5.60) 12/10/19 07:35 Hgb 13.4 GM/dL (11.7-16.9) 12/10/19 07:35 Hct 41.2 % (35.4-49) 12/10/19 07:35 MCV 87.0 fl (80-96) 12/10/19 07:35 MCH 28.2 pg (25.7-33.7) 12/10/19 07:35 MCHC 32.5 g/dl (32.0-35.9) 12/10/19 07:35 RDW 14.3 % (11.9-15.9) 12/10/19 07:35 Plt Count 234 K/MM3 (134-434) 12/10/19 07:35 MPV 9.1 fl (7.5-11.1) 12/10/19 07:35 Sodium 139 mmol/L (136-145) 12/10/19 07:35 Potassium 3.6 mmol/L (3.5-5.1) 12/10/19 07:35 Chloride 103 mmol/L (98-107) 12/10/19 07:35 Carbon Dioxide 28 mmol/L (21-32) 12/10/19 07:35 Anion Gap 9 MMOL/L (8-16) 12/10/19 07:35 BUN 22.9 mg/dL (7-18) H 12/10/19 07:35 Creatinine 1.3 mg/dL (0.55-1.3) 12/10/19 07:35 Est GFR (CKD-EPI)AfAm 67.78 12/10/19 07:35 Est GFR (CKD-EPI)NonAf 58.48 12/10/19 07:35 Random Glucose 78 mg/dL (74-106) 12/10/19 07:35 Calcium 8.5 mg/dL (8.5-10.1) 12/10/19 07:35 Total Bilirubin 0.5 mg/dL (0.2-1) 12/10/19 07:35 AST 11 U/L (15-37) L 12/10/19 07:35 ALT 18 U/L (13-61) 12/10/19 07:35 Alkaline Phosphatase 70 U/L (45-117) 12/10/19 07:35 Total Protein 6.7 g/dl (6.4-8.2) 12/10/19 07:35 Albumin 3.5 g/dl (3.4-5.0) 12/10/19 07:35 Syphilis Serology Reactive (NONREACTIVE) A* 12/10/19 07:35 RPR Titer Reactive 1:1 (NONREACTIVE) H 12/10/19 07:35 COVID-19 (ANDRIY) Not detected (Not Detected) 12/09/19 22:40 history of syphilis treated before Assessment: 12/12/19 10:22 withdrawal symptom Plan: continue detox ativan regimen
[2019-12-12] MEDS: NICOTINE 14 MG/24 HOURS TOPICAL PATCH TD SCH (10:55)
[2019-12-12] MEDS: PRENATAL VITAMINS W/ FOLIC ACID TABLET (FP) PO SCH (10:55)
[2019-12-12] MEDS: MELATONIN 5 MG TABLETS PO SCH (23:03)
[2019-12-12] MEDS: THIAMINE HCL 100 MG TABLET (FP) PO SCH (23:03)
[2019-12-13] MEDS ORDERED: LORazepam 0.5 MG TABLET PO PRN
[2019-12-13] MEDS ORDERED: chlordiazePOXIDE HCL 10 MG CAPSULE PO SCH (05:00)
[2019-12-13] MEDS: LORazepam 0.5 MG TABLET PO SCH ×2 (06:47→11:07)
--- NOTE | 2019-12-13 08:48 | PN ---
[facility] CIWA - CIWA Score Nausea/Vomitin-No Nausea/No Vomiting Muscle Tremors: None Anxiety: 1-Mildly Anxious Agitation: 0-Normal Activity Paroxysmal Sweats: No Perspiration Orientation: 0-Oriented Tacttile Disturbances: 0-None Auditory Disturbances: 0-None Visual Disturbances: 0-None Headache: 0-None Present CIWA-Ar Total Score: 1 S Progress Note (SOAP) Subjective: alert,no complaint Objective: 12/13/19 08:47 Vital Signs Temperature 98.2 F 12/13/19 05:10 Pulse Rate 76 12/13/19 05:10 Respiratory Rate 18 12/13/19 05:10 Blood Pressure 137/87 12/13/19 05:10 O2 Sat by Pulse Oximetry (%) 99 12/13/19 05:10 Assessment: 12/13/19 08:47 no withdrawal symptom Plan: stable for discharge today,follow up with after care program as arrangement
--- NOTE | 2019-12-13 08:52 | DS ---
[facility] Detox Discharge Summary Admission Date: 12/09/19 Discharge Date: 12/13/19 - History Present History: Alcohol Dependence, Cannabis Dependence, Cocaine Dependence Additional Comments: alert,oriented x 3 ambulation on the unit lung clear on auscultation bilaterally abdomen soft,no distension,no pain,no tenderness stable for discharge,no withdrawal symptom follow up with after care program [facility] as arrangement total time spending on discharge 35 minutes Pertinent Past History: nicotine dependence positive ppd - Physical Exam Results Vital Signs: Vital Signs Temperature 98.2 F 12/13/19 05:10 Pulse Rate 76 12/13/19 05:10 Respiratory Rate 18 12/13/19 05:10 Blood Pressure 137/87 12/13/19 05:10 O2 Sat by Pulse Oximetry (%) 99 12/13/19 05:10 Pertinent Admission Physical Exam Findings: withdrawal signs and symptom Laboratory Last Values WBC 6.2 K/mm3 (4.0-10.0) 12/10/19 07:35 RBC 4.73 M/mm3 (4.00-5.60) 12/10/19 07:35 Hgb 13.4 GM/dL (11.7-16.9) 12/10/19 07:35 Hct 41.2 % (35.4-49) 12/10/19 07:35 MCV 87.0 fl (80-96) 12/10/19 07:35 MCH 28.2 pg (25.7-33.7) 12/10/19 07:35 MCHC 32.5 g/dl (32.0-35.9) 12/10/19 07:35 RDW 14.3 % (11.9-15.9) 12/10/19 07:35 Plt Count 234 K/MM3 (134-434) 12/10/19 07:35 MPV 9.1 fl (7.5-11.1) 12/10/19 07:35 Sodium 139 mmol/L (136-145) 12/10/19 07:35 Potassium 3.6 mmol/L (3.5-5.1) 12/10/19 07:35 Chloride 103 mmol/L (98-107) 12/10/19 07:35 Carbon Dioxide 28 mmol/L (21-32) 12/10/19 07:35 Anion Gap 9 MMOL/L (8-16) 12/10/19 07:35 BUN 22.9 mg/dL (7-18) H 12/10/19 07:35 Creatinine 1.3 mg/dL (0.55-1.3) 12/10/19 07:35 Est GFR (CKD-EPI)AfAm 67.78 12/10/19 07:35 Est GFR (CKD-EPI)NonAf 58.48 12/10/19 07:35 Random Glucose 78 mg/dL (74-106) 12/10/19 07:35 Calcium 8.5 mg/dL (8.5-10.1) 12/10/19 07:35 Total Bilirubin 0.5 mg/dL (0.2-1) 12/10/19 07:35 AST 11 U/L (15-37) L 12/10/19 07:35 ALT 18 U/L (13-61) 12/10/19 07:35 Alkaline Phosphatase 70 U/L (45-117) 12/10/19 07:35 Total Protein 6.7 g/dl (6.4-8.2) 12/10/19 07:35 Albumin 3.5 g/dl (3.4-5.0) 12/10/19 07:35 Syphilis Serology Reactive (NONREACTIVE) A* 12/10/19 07:35 RPR Titer Reactive 1:1 (NONREACTIVE) H 12/10/19 07:35 COVID-19 (ANDRIY) Not detected (Not Detected) 12/09/19 22:40 Vital Signs Temperature 98.2 F 12/13/19 05:10 Pulse Rate 76 12/13/19 05:10 Respiratory Rate 18 12/13/19 05:10 Blood Pressure 137/87 12/13/19 05:10 O2 Sat by Pulse Oximetry (%) 99 12/13/19 05:10 - Treatment Hospital Course: Detox Protocol Followed, Detoxed Safely, Responded well, Discharged Condition Good, Rehab Referral Accepted Patient has Accepted a Re[facility] Referral to: [facility] - Medication Discharge Medications: Ambulatory Orders Ibuprofen [Motrin -] 400 mg PO Q6H PRN #60 tablet 10/19/19 - Diagnosis (1) Alcohol dependence with uncomplicated withdrawal Current Visit: Yes Status: Acute (2) Cannabis dependence, uncomplicated Current Visit: Yes Status: Chronic (3) Cocaine dependence Current Visit: Yes Status: Chronic Qualifiers: Substance use status: uncomplicated Qualified Code(s): F14.20 - Cocaine dependence, uncomplicated (4) Positive PPD Current Visit: Yes Status: Acute (5) History of syphilis Current Visit: Yes Status: Acute - AMA Did Patient Leave Against Medical Advice: No
[2019-12-13 09:41] VITALS: BP 127/77; PULSE 80; TEMP 98.6
[2019-12-13] MEDS: NICOTINE 14 MG/24 HOURS TOPICAL PATCH TD SCH (10:51)
[2019-12-13] MEDS: PRENATAL VITAMINS W/ FOLIC ACID TABLET (FP) PO SCH (10:51)
[2019-12-14] MEDS ORDERED: LORazepam 0.5 MG TABLET PO ONE (05:00)
[2019-12-14] MEDS ORDERED: chlordiazePOXIDE HCL 10 MG CAPSULE PO ONE (05:00)
== END 2019-12-13 11:07 | disposition other institution (70) | DRG 774 ==
LOC: YASAS 19:52 → Y6N 22:24
PROVIDERS: ADMIT Allergy & Immunology; ATTEND Allergy & Immunology
PROC: HZ2ZZZZ Detoxification Services for Substance Abuse Treatment (ICD-10-PCS; principal; 2019-12-09)
DX: F10.230 Alcohol dependence with withdrawal, uncomplicated (principal); F14.20 Cocaine dependence, uncomplicated; F12.20 Cannabis dependence, uncomplicated; F17.210 Nicotine dependence, cigarettes, uncomplicated; F19.24 Other psychoactive substance dependence with psychoactive substance-induced mood disorder; F31.9 Bipolar disorder, unspecified; Z96.89 Presence of other specified functional implants; Z86.19 Personal history of other infectious and parasitic diseases; Z88.8 Allergy status to other drugs, medicaments and biological substances; Z91.018 Allergy to other foods; Z56.0 Unemployment, unspecified
CPT/HCPCS: 36415; 80053; 85027; 86593; 86780; 93005; 93010; U0003

== ENCOUNTER 2019-12-13 11:29 | Inpatient (IN) | payer OTHER ==
[2019-12-13] MEDS ORDERED: guaiFENesin 200 MG/10 ML 10 ML UNIT-DOSE CUPS PO PRN (12:11)
[2019-12-13] MEDS ORDERED: LOPERAMIDE HCL 2 MG CAPSULE PO PRN (12:11)
[2019-12-13] MEDS ORDERED: MAGNESIUM CITRATE 300 ML BOTTLE PO PRN (12:11)
[2019-12-13] MEDS ORDERED: MAGNESIUM HYDROX 2400MG/30ML ORAL SUSPENSION 30 ML CUP PO PRN (12:11)
[2019-12-13] MEDS ORDERED: P-EPHED 60MG/TRIPROLIDI 2.5MG TABLET PO PRN (12:11)
[2019-12-13] MEDS ORDERED: hydrOXYzine PAMOATE 25 MG CAPSULE (FP) PO PRN (12:11)
[2019-12-13] MEDS ORDERED: ACETAMINOPHEN 325 MG TABLET (FP) PO PRN (12:11)
[2019-12-13] MEDS ORDERED: IBUPROFEN 400 MG TABLET (FP) PO PRN ×2 (12:11→12:12)
[2019-12-13] MEDS ORDERED: MAG HYDROX/AL HYDROX/SIMETH 30 ML UNIT-DOSE CUP PO PRN (12:11)
[2019-12-13] MEDS ORDERED: MENTHOL/PHENOL 1 EACH UD MM PRN (12:11)
--- NOTE | 2019-12-13 12:19 | PN ---
[facility] Progress Note (SOAP) Subjective: patient admitted to [address] [place] [address]: 64 years old male with a long history of alcohol dependence (since age 18 ye ars). His last admission to [facility] was for the period 10/10/2019-10/20/2019 and he reports that he relapsed as soon as he was discharged. He denies medical history, suicide attempt and reports psych. history of bipolar disorder and depression. 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 He is unemployed, lives with his brother and denies legal issues. Objective: General: No apparent distress HEENTM: normocephalic, PERRLA NEck: supple Lungs: clear Heart: s1 s2 ABD: +BS, soft, flat MSK: full weight bearing, full ROM, steady gait Neuro: no cognitive deficits 12/13/19 12:15 Assessment: Alcohol use disorder 12/13/19 12:17 12/13/19 12:18 Plan: Rehab services Hydration and Nutrition Maintain safety labs, problem list, home medications, chart notes reviewed Rehab orders placed.
[2019-12-13] MEDS ORDERED: THIAMINE HCL 100 MG TABLET (FP) PO SCH (22:00)
[2019-12-13] MEDS ORDERED: MELATONIN 5 MG TABLETS PO SCH (22:00)
[2019-12-13 23:08] LABS: PH,URINE 6.5 (5.0-8.0); URINE APPEARANCE CLEAR; URINE BILIRUBIN NEGATIVE (NEGATIVE); URINE COLOR YELLOW; URINE GLUCOSE (UA) NEGATIVE (NEGATIVE); URINE KETONE NEGATIVE (NEGATIVE); URINE LEUK ESTERASE NEGATIVE (NEGATIVE); URINE NITRITE NEGATIVE (NEGATIVE); URINE PROTEIN NEGATIVE (NEGATIVE)
[2019-12-14 06:51] VITALS: BP 139/83; PULSE 74; TEMP 97.1
[2019-12-14] MEDS ORDERED: PT OWN MED DRAWER 7, Y5N ONE (08:43)
[2019-12-14] MEDS ORDERED: PRENATAL VITAMINS W/ FOLIC ACID TABLET (FP) PO SCH (10:00)
--- NOTE | 2019-12-14 13:12 | DS ---
[facility] Rehab Discharge Summary - [facility] Rehab Discharge Summary Admission Date: 12/13/19 Discharge Date: 12/14/19 - History Present History: Alcohol dependence Pertinent Past History: 64 years old male with a long history of alcohol dependence (since age 18 years). His last admission to [facility] was for the period 10/10/2019-10/20/2019 and he reports that he relapsed as soon as he was discharged. He denies medical history, suicide attempt and reports psych. history of bipolar disorder and depression. 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 He is unemployed, lives with his brother and denies legal issues - Discharge Physical Exam Vital Signs: Vital Signs Temperature 97.1 F L 12/14/19 06:50 Pulse Rate 74 12/14/19 06:50 Respiratory Rate 18 12/14/19 06:50 Blood Pressure 139/83 12/14/19 06:50 O2 Sat by Pulse Oximetry (%) 97 12/14/19 06:50 Pertinent Admission Physical Exam Findings: Physical General Appearance: No apparent distress HEENTM: normocephalic, PERRLA Respiratory: Lungs Clear, No Respiratory Distress Neck: supple Cardiology: s1 s2 Abdominal: +Bowel Sounds, Protuberent Musculoskeletal: Full weight bearing, steady gait Neurological: no cognitive deficits, - Treatment Discharge Condition: Outpatient referral accepted (medically stable for discharg e.Patient has not met with his counselor for discharge planning as of this writing, however, he states that he will be returning to his previous program on [facility].) Hospital Course: Patient attended groups, had 1:1. He did not have any acute or urgent problems while in rehab. - Medication Discharge Medications: Ambulatory Orders Ibuprofen [Motrin -] 400 mg PO Q6H PRN #60 tablet 10/19/19 - Medication-Assisted Treatment (MAT) Medication-Assisted Treatment (MAT): No - Discharge Instructions Diet, activity, other medical instructions: Diet: as tolerated Activity: as tolerated Other medical instructions: Please follow up and return to your outpatient program. - Diagnosis (1) Alcohol dependence with uncomplicated withdrawal Current Visit: No Status: Acute - Follow-up Referral Minutes to complete discharge: 15 - AMA Did Patient Leave Against Medical Advice: No
== END 2019-12-14 14:35 | disposition home or self-care (01) | DRG 772 ==
LOC: YASAS 11:29 → Y3W 11:30
PROVIDERS: ADMIT Allergy & Immunology; ATTEND Allergy & Immunology
PROC: HZ42ZZZ Group Counseling for Substance Abuse Treatment, Cognitive-Behavioral (ICD-10-PCS; principal; 2019-12-13)
DX: F10.20 Alcohol dependence, uncomplicated (principal); F31.9 Bipolar disorder, unspecified; Z86.19 Personal history of other infectious and parasitic diseases; Z88.0 Allergy status to penicillin; Z91.018 Allergy to other foods; Z56.0 Unemployment, unspecified
CPT/HCPCS: 81003

== ENCOUNTER 2020-02-20 19:19 | Inpatient (IN) | payer OTHER ==
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
[2020-02-20] MEDS ORDERED: MAGNESIUM CITRATE 300 ML BOTTLE PO PRN (20:27)
[2020-02-20] MEDS ORDERED: METHOCARBAMOL 500 MG TABLET PO PRN (20:27)
[2020-02-20] MEDS ORDERED: MAGNESIUM HYDROX 2400MG/30ML ORAL SUSPENSION 30 ML CUP PO PRN (20:27)
[2020-02-20] MEDS ORDERED: ACETAMINOPHEN 325 MG TABLET (FP) PO PRN ×2 (20:27)
[2020-02-20] MEDS ORDERED: LORazepam 1 MG TABLET PO PRN (20:27)
[2020-02-20] MEDS ORDERED: BISMUTH SUBSALICYLATE 524 MG/30 ML UD PO PRN (20:27)
[2020-02-20] MEDS ORDERED: MENTHOL/PHENOL 1 EACH UD MM PRN (20:27)
[2020-02-20] MEDS ORDERED: IBUPROFEN 400 MG TABLET (FP) PO PRN (20:27)
[2020-02-20] MEDS ORDERED: MAG HYDROX/AL HYDROX/SIMETH 30 ML UNIT-DOSE CUP PO PRN (20:27)
[2020-02-20] MEDS ORDERED: ONDANSETRON *ODT* 4 MG TABLET SL PRN (20:27)
[2020-02-20 20:46] VITALS: BMI 27.8
--- OUTSIDE RECORDS SUMMARY | 2020-02-20 20:54 | XMS ---
:1955 Author Organization [facility] Support Name Relationship Address Phone UE, UNEMPLOYED Unavailable Unavailable Unavailable UE Unavailable Unavailable Unavailable EDELMIRA THEODORE SISTER IN LAW [address] [address] Re-disclosure Warning The records that you are about to access may contain information from federally- assisted alcohol or drug abuse programs. If such information is present, then the following federally mandated warning applies: This information has been disclosed to you from records protected by federal confidentiality rules (42 CFR part 2). The federal rules prohibit you from making any further disclosure of this information unless further disclosure is expressly permitted by the written consent of the person to whom it pertains or as otherwise permitted by 42 CFR part 2. A general authorization for the release of medical or other information is NOT sufficient for this purpose. The Federal rules restrict any use of the information to criminally investigate or prosecute any alcohol or drug abuse patient.The records that you are about to access may contain highly sensitive health information, the redisclosure of which is protected by Article 27-F of the [facility] Public Health law. If you continue you may haveaccess to information: Regarding HIV / AIDS; Provided by facilities licensed or operated by the [facility] Office of Mental Health; or Provided by the [facility] Office for People With Developmental Disabilities. If such information is present, then the following [facility] mandated warning applies: This information has been disclosed to you from confidential records which are protected by state law. State law prohibits you from making any further disclosure of this information without the specific written consent of the person to whom it pertains, or as otherwise permitted by law. Any unauthorized further disclosure in violation of state law may result in a fine or nursing home sentence or both. A general authorization for the release of medical or other information is NOT sufficient authorization for further disclosure. Insurance Providers Payer name Policy type Policy ID Covered Covered republican's Policy P nolvia / Coverage republican ID relationship to Wood Inf ormation type wood HEALTH [id number] SP [id number] FIRST HEALTH [id number] SP [id number] FIRST Results ID Date Data Source [id number] 12/09/2019 10:40:00 PM EDT [facility] Name Value Range Interpretation Description Data Sup porting Code Source(s) Document(s ) SARS [facility] coronavirus 2 RNA This lab was ordered by [facility] [place] and reported by [facility]. ID Date Data Source [id number] 11/02/2019 09:48:00 PM EDT [facility] Name Value Range Interpretation Code Description Data Rima rce(s) Supporting Document(s ) SARS-CoV-2 [facility] RNA Resp Ql ANDRIY+probe This lab was ordered by [facility] and reported by [facility] Public [facility] Lab. ID Date Data Source [id number] 10/27/2019 07:05:00 PM EDT [facility] Name Value Range Interpretation Description Data Sup porting Code Source(s) Document(s ) SARS-CoV-2 [facility] Reportable This lab was ordered by [facility] and reported by [facility]. Procedure
[2020-02-20] MEDS: THIAMINE HCL 100 MG TABLET (FP) PO SCH (22:53)
[2020-02-20] MEDS: LORazepam 2 MG TABLET PO SCH (22:53)
[2020-02-20] MEDS: MELATONIN 5 MG TABLETS PO SCH (22:54)
[2020-02-21] MEDS: LORazepam 2 MG TABLET PO SCH ×4 (06:52→22:39)
--- NOTE | 2020-02-21 09:02 | EKG ---
Test Reason : Blood Pressure : / mmHG Vent. Rate : 085 BPM Atrial Rate : 085 BPM P-R Int : 180 ms QRS Dur : 072 ms QT Int : 404 ms P-R-T Axes : 064 033 037 degrees QTc Int : 480 ms NORMAL SINUS RHYTHM PROLONGED QT ABNORMAL ECG WHEN COMPARED WITH ECG OF 09-DEC-2019 21:39, NONSPECIFIC T WAVE ABNORMALITY NO LONGER EVIDENT IN LATERAL LEADS Confirmed by MD DAWSON, BURTON ([id number]) on 02/21/2020 9:01:44 AM Referred By: Valeriano Avelar Confirmed By:BURTON OSMAN MD
--- NOTE | 2020-02-21 09:43 | PN ---
[facility] CIWA - CIWA Score Nausea/Vomitin-No Nausea/No Vomiting Muscle Tremors: 2 Anxiety: 2 Agitation: 2 Paroxysmal Sweats: No Perspiration Orientation: 0-Oriented Tacttile Disturbances: 1-Very Mild Itch/Numbness Auditory Disturbances: 0-None Visual Disturbances: 0-None Headache: 2-Mild CIWA-Ar Total Score: 9 S Progress Note (SOAP) Subjective: alert,irritable,anxious,interrupted sleep,aching pain Objective: 02/21/20 14:35 Vital Signs Temperature 97.3 F L 02/21/20 12:39 Pulse Rate 88 02/21/20 12:39 Respiratory Rate 18 02/21/20 12:39 Blood Pressure 99/66 02/21/20 12:39 O2 Sat by Pulse Oximetry (%) 96 02/21/20 12:39 Laboratory Last Values WBC 5.4 K/mm3 (4.0-10.0) 02/21/20 07:45 RBC 4.46 M/mm3 (4.00-5.60) 02/21/20 07:45 Hgb 12.9 GM/dL (11.7-16.9) 02/21/20 07:45 Hct 38.9 % (35.4-49) 02/21/20 07:45 MCV 87.0 fl (80-96) 02/21/20 07:45 MCH 28.8 pg (25.7-33.7) 02/21/20 07:45 MCHC 33.1 g/dl (32.0-35.9) 02/21/20 07:45 RDW 14.1 % (11.9-15.9) 02/21/20 07:45 Plt Count 246 K/MM3 (134-434) 02/21/20 07:45 MPV 9.4 fl (7.5-11.1) 02/21/20 07:45 Sodium 139 mmol/L (136-145) 02/21/20 07:45 Potassium 3.3 mmol/L (3.5-5.1) L 02/21/20 07:45 Chloride 103 mmol/L (98-107) 02/21/20 07:45 Carbon Dioxide 30 mmol/L (21-32) 02/21/20 07:45 Anion Gap 6 MMOL/L (8-16) L 02/21/20 07:45 BUN 14.9 mg/dL (7-18) 02/21/20 07:45 Creatinine 1.2 mg/dL (0.55-1.3) 02/21/20 07:45 Est GFR (CKD-EPI)AfAm 74.66 02/21/20 07:45 Est GFR (CKD-EPI)NonAf 64.42 02/21/20 07:45 Random Glucose 77 mg/dL (74-106) 02/21/20 07:45 Calcium 8.2 mg/dL (8.5-10.1) L 02/21/20 07:45 Total Bilirubin 0.9 mg/dL (0.2-1) 02/21/20 07:45 AST 15 U/L (15-37) 02/21/20 07:45 ALT 17 U/L (13-61) 02/21/20 07:45 Alkaline Phosphatase 63 U/L (45-117) 02/21/20 07:45 Total Protein 6.4 g/dl (6.4-8.2) 02/21/20 07:45 Albumin 3.2 g/dl (3.4-5.0) L 02/21/20 07:45 Syphilis Serology Reactive (NONREACTIVE) A* 02/21/20 08:45 RPR Titer Reactive 1:1 (NONREACTIVE) H 02/21/20 08:45 history of syphilis treated before Assessment: 02/21/20 14:36 withdrawal symptom Plan: continue detox ativan regimen,k dur 20 meq po daily for 3day,repeat k in am
[2020-02-21] MEDS: PRENATAL VITAMINS W/ FOLIC ACID TABLET (FP) PO SCH (10:15)
[2020-02-21 10:29] LABS: HEMATOCRIT 38.9 % (35.4-49); HEMOGLOBIN 12.9 GM/dL (11.7-16.9); MCH 28.8 pg (25.7-33.7); MCHC 33.1 g/dl (32.0-35.9); MEAN PLT VOLUME 9.4 fl (7.5-11.1); PLATELET COUNT 246 K/MM3 (134-434); RBC 4.46 M/mm3 (4.00-5.60); RDW 14.1 % (11.9-15.9); WHITE BLOOD COUNT 5.4 K/mm3 (4.0-10.0)
[2020-02-21 10:41] LABS: ALBUMIN 3.2 g/dl (3.4-5.0); BILIRUBIN,TOTAL 0.9 mg/dL (0.2-1); BLOOD UREA NITROGEN 14.9 mg/dL (7-18); CALCIUM 8.2 mg/dL (8.5-10.1); CREATININE 1.2 mg/dL (0.55-1.3); POTASSIUM 3.3 mmol/L (3.5-5.1); TOT PROT 6.4 g/dl (6.4-8.2)
--- NOTE | 2020-02-21 14:35 | CONSULT ---
[facility] Psychiatric Consult - Data Date of interview: 02/21/20 Admission source: [facility] Identifying data: Patient is approached at bedside for psychiatric evaluated (as requested by medical providers). Mr Araujo refuses to talk to psychiatrists. " I don't need psychiatrists." Nursing staff is made aware of patient's decision to waive psychiatric consultation.
[2020-02-21] MEDS: POTASSIUM CHLORIDE TABS 20 MEQ TABLET.ER (FP) PO SCH (16:10)
[2020-02-21] MEDS: MELATONIN 5 MG TABLETS PO SCH (22:39)
[2020-02-21] MEDS: THIAMINE HCL 100 MG TABLET (FP) PO SCH (22:39)
[2020-02-22] MEDS: LORazepam 1 MG TABLET PO SCH ×4 (07:13→22:38)
[2020-02-22] MEDS: POTASSIUM CHLORIDE TABS 20 MEQ TABLET.ER (FP) PO SCH (10:25)
[2020-02-22] MEDS: PRENATAL VITAMINS W/ FOLIC ACID TABLET (FP) PO SCH (10:25)
--- NOTE | 2020-02-22 11:52 | PN ---
S CIWA - CIWA Score Nausea/Vomitin-Mild Nausea/No Vomiting Muscle Tremors: 2 Anxiety: 2 Agitation: 2 Paroxysmal Sweats: No Perspiration Orientation: 0-Oriented Tacttile Disturbances: 0-None Auditory Disturbances: 0-None Visual Disturbances: 0-None Headache: 1-Very Mild CIWA-Ar Total Score: 8 [facility] Progress Note (SOAP) Subjective: alert,irritable,anxious,interrupted sleep,tremor Objective: 02/22/20 13:28 Vital Signs Temperature 97.5 F L 02/22/20 12:48 Pulse Rate 87 02/22/20 12:48 Respiratory Rate 16 02/22/20 12:48 Blood Pressure 124/78 02/22/20 12:48 O2 Sat by Pulse Oximetry (%) 98 02/22/20 12:48 Assessment: 02/22/20 13:28 withdrawal symptom Plan: continue detox ativan regimen,on k dur replacement,refuse repeat k this morning,will do repeat k in am,patient will be contracted,
[2020-02-22] MEDS: MELATONIN 5 MG TABLETS PO SCH (22:37)
[2020-02-22] MEDS: THIAMINE HCL 100 MG TABLET (FP) PO SCH (22:38)
[2020-02-23] MEDS ORDERED: LORazepam 0.5 MG TABLET PO PRN
[2020-02-23] MEDS: LORazepam 0.5 MG TABLET PO SCH ×4 (07:54→22:42)
[2020-02-23] MEDS: PRENATAL VITAMINS W/ FOLIC ACID TABLET (FP) PO SCH (10:42)
[2020-02-23] MEDS: POTASSIUM CHLORIDE TABS 20 MEQ TABLET.ER (FP) PO SCH (10:42)
--- NOTE | 2020-02-23 14:15 | PN ---
[facility] CIWA - CIWA Score Nausea/Vomitin-Mild Nausea/No Vomiting Muscle Tremors: 1-None Visible, but [place] Anxiety: 1-Mildly Anxious Agitation: 1-Slight > Activity Paroxysmal Sweats: No Perspiration Orientation: 0-Oriented Tacttile Disturbances: 0-None Auditory Disturbances: 0-None Visual Disturbances: 0-None Headache: 1-Very Mild CIWA-Ar Total Score: 5 BHS Progress Note (SOAP) Subjective: alert,anxious,irritable,interrupted sleep Objective: 02/23/20 14:13 Vital Signs Temperature 97.5 F L 02/23/20 12:23 Pulse Rate 87 02/23/20 12:23 Respiratory Rate 18 02/23/20 12:23 Blood Pressure 138/81 02/23/20 12:23 O2 Sat by Pulse Oximetry (%) 98 02/23/20 12:23 patient refused repeat k Assessment: 02/23/20 14:14 continue detox ativan regimen Plan: continue detox ativan carmen kaba dur 20 meq po daily,discharge in am
[2020-02-23] MEDS: THIAMINE HCL 100 MG TABLET (FP) PO SCH (22:42)
[2020-02-23] MEDS: MELATONIN 5 MG TABLETS PO SCH (22:42)
[2020-02-24] MEDS ORDERED: LORazepam 0.5 MG TABLET PO ONE (05:00)
[2020-02-24 09:27] VITALS: BP 118/74; PULSE 83; TEMP 97.5
--- NOTE | 2020-02-24 09:31 | DS ---
[facility] Detox Discharge Summary Admission Date: 02/20/20 Discharge Date: 02/24/20 - History Present History: Alcohol Dependence Additional Comments: Pt is medically cleared and discharge to [facility] for continued management. Pt is encouraged to follow through with the rehab protocol which he verbalized understanding. Pt is AOX3, in no acute respiratory distress, Full ROM, and ambulatory. Pertinent Past History: h/o alcohol use disorder. - Physical Exam Results Vital Signs: Vital Signs 02/24/20 02/24/20 06:18 09:05 Temperature 97.7 F 97.5 F L Pulse Rate 76 83 Respiratory 18 18 Rate Blood Pressure 121/75 118/74 O2 Sat by Pulse 96 Oximetry (%) Laboratory Last Values WBC 5.4 K/mm3 (4.0-10.0) 02/21/20 07:45 RBC 4.46 M/mm3 (4.00-5.60) 02/21/20 07:45 Hgb 12.9 GM/dL (11.7-16.9) 02/21/20 07:45 Hct 38.9 % (35.4-49) 02/21/20 07:45 MCV 87.0 fl (80-96) 02/21/20 07:45 MCH 28.8 pg (25.7-33.7) 02/21/20 07:45 MCHC 33.1 g/dl (32.0-35.9) 02/21/20 07:45 RDW 14.1 % (11.9-15.9) 02/21/20 07:45 Plt Count 246 K/MM3 (134-434) 02/21/20 07:45 MPV 9.4 fl (7.5-11.1) 02/21/20 07:45 Sodium 139 mmol/L (136-145) 02/21/20 07:45 Potassium 3.3 mmol/L (3.5-5.1) L 02/21/20 07:45 Chloride 103 mmol/L (98-107) 02/21/20 07:45 Carbon Dioxide 30 mmol/L (21-32) 02/21/20 07:45 Anion Gap 6 MMOL/L (8-16) L 02/21/20 07:45 BUN 14.9 mg/dL (7-18) 02/21/20 07:45 Creatinine 1.2 mg/dL (0.55-1.3) 02/21/20 07:45 Est GFR (CKD-EPI)AfAm 74.66 02/21/20 07:45 Est GFR (CKD-EPI)NonAf 64.42 02/21/20 07:45 Random Glucose 77 mg/dL (74-106) 02/21/20 07:45 Calcium 8.2 mg/dL (8.5-10.1) L 02/21/20 07:45 Total Bilirubin 0.9 mg/dL (0.2-1) 02/21/20 07:45 AST 15 U/L (15-37) 02/21/20 07:45 ALT 17 U/L (13-61) 02/21/20 07:45 Alkaline Phosphatase 63 U/L (45-117) 02/21/20 07:45 Total Protein 6.4 g/dl (6.4-8.2) 02/21/20 07:45 Albumin 3.2 g/dl (3.4-5.0) L 02/21/20 07:45 Syphilis Serology Reactive (NONREACTIVE) A* 02/21/20 08:45 RPR Titer Reactive 1:1 (NONREACTIVE) H 02/21/20 08:45 COVID-19 (ANDRIY) Not detected (Not Detected) 02/20/20 21:10 Labs noted with RPR of 1:1, h/o syphilis, treated before. Pertinent Admission Physical Exam Findings: withdrawal symptoms. - Treatment Hospital Course: Detox Protocol Followed, Detoxed Safely, Responded well, Discharged Condition Good, Rehab Referral Accepted Patient has Accepted a Rehab Referral to: [facility] - Diagnosis (1) Alcohol dependence with uncomplicated withdrawal Current Visit: Yes Status: Acute (2) Nicotine dependence Current Visit: Yes Status: Chronic Qualifiers: Nicotine product type: cigarettes Substance use status: uncomplicated Qualified Code(s): F17.210 - Nicotine dependence, cigarettes, uncomplicated (3) Alcohol dependence Current Visit: No Status: Chronic Qualifiers: Substance use status: uncomplicated Qualified Code(s): F10.20 - Alcohol dependence, uncomplicated - AMA Did Patient Leave Against Medical Advice: No
[2020-02-24] MEDS: PRENATAL VITAMINS W/ FOLIC ACID TABLET (FP) PO SCH (11:07)
== END 2020-02-24 12:52 | disposition other institution (70) | DRG 774 ==
LOC: YASAS 19:19 → Y3N 20:50
PROVIDERS: ADMIT Allergy & Immunology; ATTEND Allergy & Immunology
PROC: HZ2ZZZZ Detoxification Services for Substance Abuse Treatment (ICD-10-PCS; principal; 2020-02-20)
DX: F10.230 Alcohol dependence with withdrawal, uncomplicated (principal); F14.20 Cocaine dependence, uncomplicated; F12.20 Cannabis dependence, uncomplicated; F17.210 Nicotine dependence, cigarettes, uncomplicated; F31.9 Bipolar disorder, unspecified; M54.5 Low back pain; M25.561 Pain in right knee; G89.29 Other chronic pain; Z86.11 Personal history of tuberculosis; Z86.19 Personal history of other infectious and parasitic diseases; Z88.0 Allergy status to penicillin; Z91.018 Allergy to other foods; Z91.013 Allergy to seafood; Z96.89 Presence of other specified functional implants
CPT/HCPCS: 36415; 80053; 85027; 86593; 86780; 93005; 93010; U0003

== ENCOUNTER 2020-02-24 13:04 | Inpatient (IN) | payer OTHER ==
--- OUTSIDE RECORDS SUMMARY | 2020-02-24 13:07 | XMS ---
:1955 Author Organization [facility] Support Name Relationship Address Phone UE, UNEMPLOYED Unavailable Unavailable Unavailable UE Unavailable Unavailable Unavailable EDELMIRA THEODORE SISTER IN LAW [address] [address] Re-disclosure Warning The records that you are [...] is protected by Article 27-F of the [facility] Public Health law. If you continue you may haveaccess to information: Regarding HIV / AIDS; Provided by facilities licensed or operated by the [facility] Office of Mental Health; or Provided by the [facility] Office for People With Developmental Disabilities. If such information is present, then the following [facility] mandated warning applies: This information has been [...] law may result in a fine or intermediate sentence or both. A general authorization for the release of medical or other information is NOT sufficient authorization for further disclosure. Insurance Providers Payer name Policy type Policy ID Covered Covered alliance party's Policy P nolvia / Coverage alliance party ID relationship to Wood Inf ormation type wood HEALTH [id number] SP [id number] FIRST HEALTH [id number] SP [id number] FIRST Results ID Date Data Source [id number] 02/20/2020 09:10:00 PM EDT [facility] Name Value Range Interpretation Description Data Sup porting Code Source(s) Document(s ) SARS [facility] coronavirus 2 RNA This lab was ordered by [facility] and reported by [facility]. ID Date Data Source [id number] 12/09/2019 10:40:00 PM EDT [facility] Name Value Range Interpretation Description Data Sup porting Code Source(s) Document(s ) SARS [facility] coronavirus 2 RNA This lab was ordered by [facility] and reported by [facility]. ID Date Data Source [id number] 11/02/2019 09:48:00 PM EDT [facility] Name Value Range Interpretation Code Description Data Rima rce(s) Supporting Document(s ) SARS-CoV-2 [facility] RNA Resp Ql ANDRIY+probe This lab was ordered by [facility] and reported by [facility] Public Health Lab. ID Date Data Source [id number] 10/27/2019 07:05:00 PM EDT [facility] Name Value Range Interpretation Description Data Sup porting Code Source(s) Document(s ) SARS-CoV-2 [facility] Reportable This lab was ordered by [facility] and reported by [facility]. Procedure
--- OUTSIDE RECORDS SUMMARY | 2020-02-24 13:08 | XMS ---
:1955 Author Organization [facility] Support Name Relationship Address Phone UE, UNEMPLOYED Unavailable Unavailable Unavailable UE Unavailable Unavailable Unavailable EDELMIRA THEODORE SISTER IN LAW [address] [address] Re-disclosure Warning The records that you are [...] is protected by Article 27-F of the [facility] Public Health law. If you continue you may haveaccess to information: Regarding HIV / AIDS; Provided by facilities licensed or operated by the [facility] Office of Mental Health; or Provided by the [facility] Office for People With Developmental Disabilities. If such information is present, then the following [facility] mandated warning applies: This information has been [...] law may result in a fine or halfway sentence or both. A general authorization for the release of medical or other information is NOT sufficient authorization for further disclosure. Insurance Providers Payer name Policy type Policy ID Covered Covered constitution party's Policy P nolvia / Coverage constitution party ID relationship to Wood Inf ormation type wood HEALTH [id number] SP [id number] [employer] [id number] SP [id number] FIRST Results ID Date Data Source [id number] 02/20/2020 09:10:00 PM EDT [facility] Name Value Range Interpretation Description Data Sup porting Code Source(s) Document(s ) SARS [facility] coronavirus 2 RNA This lab was ordered by [facility] and reported by [facility]. ID Date Data Source [id number] 12/09/2019 10:40:00 PM EDT [facility] Name Value Range Interpretation Description Data Sup porting Code Source(s) Document(s ) SARS [facility] coronavirus 2 RNA This lab was ordered by [facility] and reported by [facility]. ID Date Data Source [id number] 11/02/2019 09:48:00 PM EDT [facility] Name Value Range Interpretation Code Description Data Rima rce(s) Supporting Document(s ) SARS-CoV-2 [facility] RNA Resp Ql ANDRIY+probe This lab was ordered by [facility] and reported by [facility]. ID Date Data Source [id number] 10/27/2019 07:05:00 PM EDT [facility] Name Value Range Interpretation Description Data Sup porting Code Source(s) Document(s ) SARS-CoV-2 [facility] Reportable This lab was ordered by [facility] and reported by [facility]. Procedure
--- NOTE | 2020-02-24 13:34 | HP ---
[facility] Rehab Assess/Revision - Admission History Admitted to Rehab from: Deidre Rich Date of Admission to Rehab: 02/24/20 - Findings Detox History & Physical reviewed: Yes Concur with findings: Yes Inpatient Rehab Admission - Rehab Decision to Admit Inpatient rehab admission?: Yes - Initial Determination Are CD services needed?: Yes Free of communicable disease: Yes Not in need of hospitalization: Yes - Rehab Admission Criteria Previous failed treatment: Yes Poor recovery environment: Yes Comorbidities: Yes Lacks judgement: Yes Patient is meeting Inpatient Rehab admission criteria:: Yes
[2020-02-24] MEDS ORDERED: MAGNESIUM HYDROX 2400MG/30ML ORAL SUSPENSION 30 ML CUP PO PRN (13:36)
[2020-02-24] MEDS ORDERED: LOPERAMIDE HCL 2 MG CAPSULE PO PRN (13:36)
[2020-02-24] MEDS ORDERED: IBUPROFEN 400 MG TABLET (FP) PO PRN (13:36)
[2020-02-24] MEDS ORDERED: hydrOXYzine PAMOATE 25 MG CAPSULE (FP) PO PRN (13:36)
[2020-02-24] MEDS ORDERED: guaiFENesin 200 MG/10 ML 10 ML UNIT-DOSE CUPS PO PRN (13:36)
[2020-02-24] MEDS ORDERED: ACETAMINOPHEN 325 MG TABLET (FP) PO PRN (13:36)
[2020-02-24] MEDS ORDERED: P-EPHED 60MG/TRIPROLIDI 2.5MG TABLET PO PRN (13:36)
[2020-02-24] MEDS ORDERED: MAG HYDROX/AL HYDROX/SIMETH 30 ML UNIT-DOSE CUP PO PRN (13:36)
[2020-02-24] MEDS ORDERED: MENTHOL/PHENOL 1 EACH UD MM PRN (13:36)
[2020-02-24] MEDS ORDERED: MAGNESIUM CITRATE 300 ML BOTTLE PO PRN (13:36)
[2020-02-24 13:52] VITALS: BP 129/84; PULSE 77; TEMP 97.1
[2020-02-24] MEDS ORDERED: MELATONIN 5 MG TABLETS PO SCH (22:00)
[2020-02-24] MEDS ORDERED: THIAMINE HCL 100 MG TABLET (FP) PO SCH (22:00)
[2020-02-25] MEDS ORDERED: PRENATAL VITAMINS W/ FOLIC ACID TABLET (FP) PO SCH (10:00)
--- NOTE | 2020-02-25 16:58 | DS ---
[facility] Rehab Discharge Summary - [facility] Rehab Discharge Summary Admission Date: 02/24/20 Discharge Date: 02/25/20 - History Present History: Alcohol dependence, Cocaine dependence Pertinent Past History: Arthritis, low back pain, depression - Discharge Physical Exam Vital Signs: Vital Signs Temperature 97.1 F L 02/24/20 13:51 Pulse Rate 77 02/24/20 13:51 Respiratory Rate 18 02/24/20 13:51 Blood Pressure 129/84 02/24/20 13:51 O2 Sat by Pulse Oximetry (%) 96 02/25/20 08:13 Pertinent Admission Physical Exam Findings: Resolved withdrawal sx - Medication Discharge Medications: Ambulatory Orders NK [No Known Home Medication] 02/24/20 - Medication-Assisted Treatment (MAT) Medication-Assisted Treatment (MAT): No - Discharge Instructions Diet, activity, other medical instructions: Diet: No restrictions Activity: No restrictions Other medical instructions: F/U with PCP - Diagnosis (1) Alcohol dependence with uncomplicated withdrawal Status: Acute (2) Low back pain Status: Chronic - AMA Did Patient Leave Against Medical Advice: Yes Additional Comments: Patient adamant on leaving with no pressing issues reported except that he wants to be with his family and I, 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
== END 2020-02-25 11:00 | disposition left against medical advice (07) | DRG 770 ==
LOC: YASAS 13:04 → Y5N 13:05
PROVIDERS: ADMIT Allergy & Immunology; ATTEND Allergy & Immunology
PROC: HZ42ZZZ Group Counseling for Substance Abuse Treatment, Cognitive-Behavioral (ICD-10-PCS; principal; 2020-02-24)
DX: F10.20 Alcohol dependence, uncomplicated (principal); F14.20 Cocaine dependence, uncomplicated; F32.9 Major depressive disorder, single episode, unspecified; M54.5 Low back pain; M12.9 Arthropathy, unspecified; Z88.0 Allergy status to penicillin; Z91.013 Allergy to seafood; Z91.018 Allergy to other foods

== ENCOUNTER 2020-08-19 19:22 | Inpatient (IN) | payer OTHER ==
[2020-08-19 23:11] VITALS: BMI 18.9
[2020-08-19] MEDS ORDERED: LOPERAMIDE HCL 2 MG CAPSULE PO PRN (23:36)
[2020-08-19] MEDS ORDERED: guaiFENesin 200 MG/10 ML 10 ML UNIT-DOSE CUPS PO PRN (23:36)
[2020-08-19] MEDS ORDERED: ACETAMINOPHEN 325 MG TABLET (FP) PO PRN (23:36)
[2020-08-19] MEDS ORDERED: MAGNESIUM CITRATE 300 ML BOTTLE PO PRN (23:36)
[2020-08-19] MEDS ORDERED: P-EPHED 60MG/TRIPROLIDI 2.5MG TABLET PO PRN (23:36)
[2020-08-19] MEDS ORDERED: IBUPROFEN 400 MG TABLET (FP) PO PRN (23:36)
[2020-08-19] MEDS ORDERED: MAG HYDROX/AL HYDROX/SIMETH 30 ML UNIT-DOSE CUP PO PRN (23:36)
[2020-08-19] MEDS ORDERED: hydrOXYzine PAMOATE 25 MG CAPSULE (FP) PO PRN (23:36)
[2020-08-19] MEDS ORDERED: MAGNESIUM HYDROX 2400MG/30ML ORAL SUSPENSION 30 ML CUP PO PRN (23:36)
[2020-08-20] MEDS: PRENATAL VITAMINS W/ FOLIC ACID TABLET (FP) PO SCH (12:28)
[2020-08-20] MEDS: MELATONIN 5 MG TABLETS PO SCH ×2 (12:29→21:54)
[2020-08-20] MEDS: THIAMINE HCL 100 MG TABLET (FP) PO SCH (21:54)
[2020-08-21] MEDS: PRENATAL VITAMINS W/ FOLIC ACID TABLET (FP) PO SCH (10:40)
[2020-08-21 11:40] LABS: HEMATOCRIT 40.4 % (35.4-49); HEMOGLOBIN 13.3 GM/dL (11.7-16.9); MCHC 32.9 g/dl (32.0-35.9); PLATELET COUNT 202 K/MM3 (134-434); RBC 4.75 M/mm3 (4.00-5.60); RDW 14.2 % (11.9-15.9); WHITE BLOOD COUNT 4.6 K/mm3 (4.0-10.0)
[2020-08-21 12:00] LABS: ALBUMIN 3.7 g/dl (3.4-5.0); BLOOD UREA NITROGEN 9.7 mg/dL (7-18); CALCIUM 9.1 mg/dL (8.5-10.1)
[2020-08-21 12:03] LABS: CREATININE 1.4 mg/dL (0.55-1.3)
[2020-08-21 12:05] LABS: BILIRUBIN,TOTAL 0.3 mg/dL (0.2-1)
[2020-08-21 12:06] LABS: POTASSIUM 4.1 mmol/L (3.5-5.1)
[2020-08-21] MEDS: THIAMINE HCL 100 MG TABLET (FP) PO SCH (22:00)
[2020-08-21] MEDS: MELATONIN 5 MG TABLETS PO SCH (22:00)
[2020-08-22] MEDS: PRENATAL VITAMINS W/ FOLIC ACID TABLET (FP) PO SCH (10:36)
[2020-08-22 12:01] VITALS: BP 112/70; PULSE 94; TEMP 97.2
== END 2020-08-22 13:50 | disposition home or self-care (01) | DRG 772 ==
LOC: YASAS 19:22 → Y3E 23:24 → Y3W 08-20 10:54
PROVIDERS: ADMIT Allergy & Immunology; ATTEND Allergy & Immunology
PROC: HZ42ZZZ Group Counseling for Substance Abuse Treatment, Cognitive-Behavioral (ICD-10-PCS; principal; 2020-08-19)
DX: F10.20 Alcohol dependence, uncomplicated (principal); F14.20 Cocaine dependence, uncomplicated; F31.9 Bipolar disorder, unspecified; U07.1 COVID-19; Z87.891 Personal history of nicotine dependence; Z98.890 Other specified postprocedural states; Z88.0 Allergy status to penicillin; Z91.013 Allergy to seafood; Z91.018 Allergy to other foods
CPT/HCPCS: 36415; 71046-TC-FY; 80053; 85027; 86593; 86780; C9803; U0003

== ENCOUNTER 2020-09-24 23:13 | Inpatient (IN) | payer OTHER ==
[2020-09-24 23:39] VITALS: BMI 24.5
[2020-09-25] MEDS ORDERED: guaiFENesin 200 MG/10 ML 10 ML UNIT-DOSE CUPS PO PRN (02:53)
[2020-09-25] MEDS ORDERED: MAGNESIUM HYDROX 2400MG/30ML ORAL SUSPENSION 30 ML CUP PO PRN (02:53)
[2020-09-25] MEDS ORDERED: ACETAMINOPHEN 325 MG TABLET (FP) PO PRN (02:53)
[2020-09-25] MEDS ORDERED: P-EPHED 60MG/TRIPROLIDI 2.5MG TABLET PO PRN (02:53)
[2020-09-25] MEDS ORDERED: MAG HYDROX/AL HYDROX/SIMETH 30 ML UNIT-DOSE CUP PO PRN (02:53)
[2020-09-25] MEDS ORDERED: LOPERAMIDE HCL 2 MG CAPSULE PO PRN (02:53)
[2020-09-25] MEDS ORDERED: MAGNESIUM CITRATE 300 ML BOTTLE PO PRN (02:53)
[2020-09-25] MEDS: IBUPROFEN 400 MG TABLET (FP) PO PRN (08:05)
[2020-09-25] MEDS: PRENATAL VITAMINS W/ FOLIC ACID TABLET (FP) PO SCH (10:54)
[2020-09-25 11:34] LABS: HEMATOCRIT 37.3 % (35.4-49); HEMOGLOBIN 12.2 GM/dL (11.7-16.9); MCHC 32.7 g/dl (32.0-35.9); MEAN CELL VOLUME 85.7 fl (80-96); MEAN PLT VOLUME 8.4 fl (7.5-11.1); PLATELET COUNT 330 K/MM3 (134-434); RBC 4.35 M/mm3 (4.00-5.60); RDW 14.1 % (11.9-15.9); WHITE BLOOD COUNT 7.6 K/mm3 (4.0-10.0)
[2020-09-25 11:40] LABS: CALCIUM 8.8 mg/dL (8.5-10.1)
[2020-09-25 11:41] LABS: ALBUMIN 3.4 g/dl (3.4-5.0); BLOOD UREA NITROGEN 13.4 mg/dL (7-18)
[2020-09-25 11:44] LABS: CREATININE 1.2 mg/dL (0.55-1.3)
[2020-09-25 11:46] LABS: BILIRUBIN,TOTAL 0.6 mg/dL (0.2-1); TOT PROT 7.1 g/dl (6.4-8.2)
[2020-09-25] MEDS: THIAMINE HCL 100 MG TABLET (FP) PO SCH (22:13)
[2020-09-25] MEDS: MELATONIN 5 MG TABLETS PO SCH (22:13)
[2020-09-26] MEDS: IBUPROFEN 400 MG TABLET (FP) PO PRN (07:28)
[2020-09-26] MEDS ORDERED: ASPIRIN 81 MG CHEWABLE TABLETS PO ONE (09:31)
[2020-09-26] MEDS: LIDOCAINE 5% TOPICAL PATCH TP SCH (10:20)
[2020-09-26] MEDS: PRENATAL VITAMINS W/ FOLIC ACID TABLET (FP) PO SCH (10:20)
[2020-09-26] MEDS: MELATONIN 5 MG TABLETS PO SCH (22:43)
[2020-09-26] MEDS: THIAMINE HCL 100 MG TABLET (FP) PO SCH (22:43)
[2020-09-26] MEDS: LIDOCAINE PATCH REMOVAL MC SCH (22:44)
[2020-09-27 10:15] LABS: URINE APPEARANCE CLEAR; URINE BILIRUBIN NEGATIVE (NEGATIVE); URINE COLOR YELLOW; URINE GLUCOSE (UA) NEGATIVE (NEGATIVE); URINE KETONE NEGATIVE (NEGATIVE); URINE LEUK ESTERASE NEGATIVE (NEGATIVE); URINE NITRITE NEGATIVE (NEGATIVE); URINE PROTEIN NEGATIVE (NEGATIVE); URINE UROBILINOGEN 0.2 mg/dL (0.2-1.0)
[2020-09-27] MEDS: PRENATAL VITAMINS W/ FOLIC ACID TABLET (FP) PO SCH (10:22)
[2020-09-27] MEDS: LIDOCAINE 5% TOPICAL PATCH TP SCH (10:22)
[2020-09-27 14:07] LABS: SARS-CoV-2 NAA Not Detected (Not Detected)
[2020-09-27] MEDS: THIAMINE HCL 100 MG TABLET (FP) PO SCH (21:56)
[2020-09-27] MEDS: MELATONIN 5 MG TABLETS PO SCH (21:56)
[2020-09-27] MEDS: LIDOCAINE PATCH REMOVAL MC SCH (21:56)
[2020-09-28] MEDS: LIDOCAINE 5% TOPICAL PATCH TP SCH (10:24)
[2020-09-28] MEDS: PRENATAL VITAMINS W/ FOLIC ACID TABLET (FP) PO SCH (10:24)
[2020-09-28] MEDS: LIDOCAINE PATCH REMOVAL MC SCH (21:47)
[2020-09-28] MEDS: MELATONIN 5 MG TABLETS PO SCH (21:47)
[2020-09-28] MEDS: THIAMINE HCL 100 MG TABLET (FP) PO SCH (21:47)
[2020-09-29] MEDS: PRENATAL VITAMINS W/ FOLIC ACID TABLET (FP) PO SCH (10:04)
[2020-09-29] MEDS: LIDOCAINE 5% TOPICAL PATCH TP SCH (10:04)
[2020-09-29] MEDS: MELATONIN 5 MG TABLETS PO SCH (21:54)
[2020-09-29] MEDS: LIDOCAINE PATCH REMOVAL MC SCH (21:54)
[2020-09-29] MEDS: THIAMINE HCL 100 MG TABLET (FP) PO SCH (21:54)
[2020-09-30] MEDS: LIDOCAINE 5% TOPICAL PATCH TP SCH (09:58)
[2020-09-30] MEDS: PRENATAL VITAMINS W/ FOLIC ACID TABLET (FP) PO SCH (09:59)
[2020-09-30] MEDS: MELATONIN 5 MG TABLETS PO SCH (21:56)
[2020-09-30] MEDS: THIAMINE HCL 100 MG TABLET (FP) PO SCH (21:56)
[2020-09-30] MEDS: LIDOCAINE PATCH REMOVAL MC SCH (22:20)
[2020-10-01] MEDS ORDERED: AMMONIUM LACTATE 12% LOTION 225 GM BOTTLE TP PRN (09:35)
[2020-10-01 10:07] LABS: SARS-CoV-2 NAA Not Detected (Not Detected)
[2020-10-01] MEDS: PRENATAL VITAMINS W/ FOLIC ACID TABLET (FP) PO SCH (10:10)
[2020-10-01] MEDS: LIDOCAINE 5% TOPICAL PATCH TP SCH (10:11)
[2020-10-01] MEDS: THIAMINE HCL 100 MG TABLET (FP) PO SCH (21:36)
[2020-10-01] MEDS: LIDOCAINE PATCH REMOVAL MC SCH (21:36)
[2020-10-01] MEDS: MELATONIN 5 MG TABLETS PO SCH (21:36)
[2020-10-02] MEDS: PRENATAL VITAMINS W/ FOLIC ACID TABLET (FP) PO SCH (10:13)
[2020-10-02] MEDS: LIDOCAINE 5% TOPICAL PATCH TP SCH (10:14)
[2020-10-02] MEDS: LIDOCAINE PATCH REMOVAL MC SCH (21:50)
[2020-10-02] MEDS: MELATONIN 5 MG TABLETS PO SCH (21:55)
[2020-10-02] MEDS: GABAPENTIN 100 MG CAPSULE PO SCH (21:55)
[2020-10-02] MEDS: THIAMINE HCL 100 MG TABLET (FP) PO SCH (21:55)
[2020-10-02] MEDS: TOLNAFTATE 1% CREAM 15 GM TUBE TP SCH (21:55)
[2020-10-03] MEDS: GABAPENTIN 100 MG CAPSULE PO SCH ×3 (06:29→21:47)
[2020-10-03] MEDS: PRENATAL VITAMINS W/ FOLIC ACID TABLET (FP) PO SCH (10:06)
[2020-10-03] MEDS: LIDOCAINE 5% TOPICAL PATCH TP SCH (10:07)
[2020-10-03] MEDS: TOLNAFTATE 1% CREAM 15 GM TUBE TP SCH ×2 (10:08→21:46)
[2020-10-03] MEDS: THIAMINE HCL 100 MG TABLET (FP) PO SCH (21:47)
[2020-10-03] MEDS: MELATONIN 5 MG TABLETS PO SCH (21:47)
[2020-10-03] MEDS: LIDOCAINE PATCH REMOVAL MC SCH (21:48)
[2020-10-03] MEDS ORDERED: ERYTHROMYCIN 0.5% OPHTHALMIC OINTMENT 3.5 GM TUBE OD SCH (22:00)
[2020-10-04] MEDS: GABAPENTIN 100 MG CAPSULE PO SCH (06:50)
[2020-10-04 06:51] VITALS: BP 135/86; PULSE 90; TEMP 97.7
[2020-10-04] MEDS: TOLNAFTATE 1% CREAM 15 GM TUBE TP SCH (09:32)
[2020-10-04] MEDS: LIDOCAINE 5% TOPICAL PATCH TP SCH (09:32)
[2020-10-04] MEDS: PRENATAL VITAMINS W/ FOLIC ACID TABLET (FP) PO SCH (09:32)
== END 2020-10-04 09:40 | disposition home or self-care (01) | DRG 772 ==
LOC: YASAS 23:13 → Y3W 09-25 03:10
PROVIDERS: ADMIT Allergy & Immunology; ATTEND Allergy & Immunology
PROC: HZ42ZZZ Group Counseling for Substance Abuse Treatment, Cognitive-Behavioral (ICD-10-PCS; principal; 2020-09-25)
DX: F10.20 Alcohol dependence, uncomplicated (principal); F14.20 Cocaine dependence, uncomplicated; F12.20 Cannabis dependence, uncomplicated; F17.210 Nicotine dependence, cigarettes, uncomplicated; F31.9 Bipolar disorder, unspecified; F41.9 Anxiety disorder, unspecified; B35.3 Tinea pedis; H00.011 Hordeolum externum right upper eyelid; M54.5 Low back pain; M25.562 Pain in left knee; R07.89 Other chest pain; Z86.16 Personal history of COVID-19; Z86.11 Personal history of tuberculosis; Z88.0 Allergy status to penicillin; Z91.013 Allergy to seafood; Z91.018 Allergy to other foods
CPT/HCPCS: 36415; 80053; 81003; 85027; 86593; 86780; 93005; 93010; C9803; U0003; U0005

== ENCOUNTER 2020-11-26 22:35 | Inpatient (IN) | payer OTHER ==
[2020-11-27] MEDS ORDERED: NICOTINE POLACRILEX 2 MG GUM BUC PRN (00:12)
[2020-11-27] MEDS ORDERED: METHOCARBAMOL 500 MG TABLET PO PRN (00:12)
[2020-11-27] MEDS ORDERED: IBUPROFEN 400 MG TABLET (FP) PO PRN (00:12)
[2020-11-27] MEDS ORDERED: MAG HYDROX/AL HYDROX/SIMETH 30 ML UNIT-DOSE CUP PO PRN (00:12)
[2020-11-27] MEDS ORDERED: guaiFENesin 200 MG/10 ML 10 ML UNIT-DOSE CUPS PO PRN (00:12)
[2020-11-27] MEDS ORDERED: ONDANSETRON *ODT* 4 MG TABLET SL PRN (00:12)
[2020-11-27] MEDS ORDERED: MAGNESIUM HYDROX 2400MG/30ML ORAL SUSPENSION 30 ML CUP PO PRN (00:12)
[2020-11-27] MEDS ORDERED: P-EPHED 60MG/TRIPROLIDI 2.5MG TABLET PO PRN (00:12)
[2020-11-27] MEDS ORDERED: MAGNESIUM CITRATE 300 ML BOTTLE PO PRN (00:12)
[2020-11-27] MEDS ORDERED: MENTHOL/PHENOL 1 EACH UD MM PRN (00:12)
[2020-11-27] MEDS ORDERED: hydrOXYzine PAMOATE 25 MG CAPSULE (FP) PO PRN (00:12)
[2020-11-27] MEDS ORDERED: BISMUTH SUBSALICYLATE 524 MG/30 ML PO PRN (00:12)
[2020-11-27] MEDS ORDERED: ACETAMINOPHEN 325 MG TABLET (FP) PO PRN ×2 (00:12)
[2020-11-27] MEDS ORDERED: DICYCLOMINE HCL 10 MG CAPSULE PO PRN (00:12)
[2020-11-27 01:48] VITALS: BMI 25.4
[2020-11-27] MEDS ORDERED: PRENATAL VITAMINS W/ FOLIC ACID TABLET (FP) PO SCH (10:00)
[2020-11-27] MEDS ORDERED: COVID-19 VAC,AD26(JANSSEN)/PF 0.5 ML IM ONE (11:00)
[2020-11-27 13:00] VITALS: BP 98/64; PULSE 79; TEMP 96.8
[2020-11-27 13:41] LABS: HEMATOCRIT 44.1 % (35.4-49); HEMOGLOBIN 14.2 GM/dL (11.7-16.9); MCH 28.1 pg (25.7-33.7); MCHC 32.2 g/dl (32.0-35.9); MEAN CELL VOLUME 87.2 fl (80-96); MEAN PLT VOLUME 9.1 fl (7.5-11.1); PLATELET COUNT 259 10^3/uL (134-434); RBC 5.05 M/mm3 (4.00-5.60); RDW 14.3 % (11.9-15.9); WHITE BLOOD COUNT 6.9 K/mm3 (4.0-10.0)
[2020-11-27 14:13] LABS: BLOOD UREA NITROGEN 13.5 mg/dL (7-18); CALCIUM 8.6 mg/dL (8.5-10.1)
[2020-11-27 14:16] LABS: CREATININE 1.3 mg/dL (0.55-1.3)
[2020-11-27 14:19] LABS: BILIRUBIN,TOTAL 0.7 mg/dL (0.2-1)
[2020-11-27] MEDS ORDERED: THIAMINE HCL 100 MG TABLET (FP) PO SCH (22:00)
[2020-11-27] MEDS ORDERED: MELATONIN 5 MG TABLETS PO SCH (22:00)
== END 2020-11-27 13:48 | disposition other institution (70) | DRG 774 ==
LOC: YASAS 22:35 → Y3N 11-27 02:10
PROVIDERS: ADMIT Allergy & Immunology; ATTEND Allergy & Immunology
PROC: HZ2ZZZZ Detoxification Services for Substance Abuse Treatment (ICD-10-PCS; principal; 2020-11-27)
DX: F10.230 Alcohol dependence with withdrawal, uncomplicated (principal); F14.20 Cocaine dependence, uncomplicated; F12.20 Cannabis dependence, uncomplicated; F19.24 Other psychoactive substance dependence with psychoactive substance-induced mood disorder; F31.9 Bipolar disorder, unspecified; M54.5 Low back pain; G89.29 Other chronic pain; Z86.11 Personal history of tuberculosis; Z86.19 Personal history of other infectious and parasitic diseases; Z88.0 Allergy status to penicillin; Z91.013 Allergy to seafood
CPT/HCPCS: 0031A; 36415; 80053; 85027; 86593; 86780; 91303; C9803; U0003; U0005

== ENCOUNTER 2021-02-28 18:52 | Inpatient (IN) | payer OTHER ==
[2021-02-28 20:57] VITALS: BMI 27.1
[2021-02-28] MEDS ORDERED: NICOTINE 10 MG CARTRIDGE (INHALER) IH PRN (23:48)
[2021-02-28] MEDS ORDERED: MAGNESIUM HYDROX 2400MG/30ML ORAL SUSPENSION 30 ML CUP PO PRN (23:48)
[2021-02-28] MEDS ORDERED: MAG HYDROX/AL HYDROX/SIMETH 30 ML UNIT-DOSE CUP PO PRN (23:48)
[2021-02-28] MEDS ORDERED: MAGNESIUM CITRATE 300 ML BOTTLE PO PRN (23:48)
[2021-02-28] MEDS ORDERED: guaiFENesin 200 MG/10 ML 10 ML UNIT-DOSE CUPS PO PRN (23:48)
[2021-02-28] MEDS ORDERED: IBUPROFEN 400 MG TABLET (FP) PO PRN (23:48)
[2021-02-28] MEDS ORDERED: ACETAMINOPHEN 325 MG TABLET (FP) PO PRN (23:48)
[2021-02-28] MEDS ORDERED: P-EPHED 60MG/TRIPROLIDI 2.5MG TABLET PO PRN (23:48)
[2021-02-28] MEDS ORDERED: LOPERAMIDE HCL 2 MG CAPSULE PO PRN (23:48)
[2021-02-28] MEDS ORDERED: NICOTINE POLACRILEX 2 MG GUM BUC PRN (23:48)
[2021-03-01] MEDS: MELATONIN 5 MG TABLETS PO SCH ×2 (03:07→23:19)
[2021-03-01] MEDS: PRENATAL VITAMINS W/ FOLIC ACID TABLET (FP) PO SCH (11:02)
[2021-03-01 14:41] LABS: HEMATOCRIT 36.5 % (35.4-49); HEMOGLOBIN 12.1 GM/dL (11.7-16.9); MCH 28.8 pg (25.7-33.7); MCHC 33.2 g/dl (32.0-35.9); MEAN CELL VOLUME 86.8 fl (80-96); MEAN PLT VOLUME 9.2 fl (7.5-11.1); PLATELET COUNT 219 10^3/uL (134-434); RDW 14.6 % (11.9-15.9); WHITE BLOOD COUNT 6.1 K/mm3 (4.0-10.0)
[2021-03-01 14:42] LABS: CALCIUM 8.3 mg/dL (8.5-10.1)
[2021-03-01 14:43] LABS: ALBUMIN 3.1 g/dl (3.4-5.0); BLOOD UREA NITROGEN 16.9 mg/dL (7-18)
[2021-03-01 14:44] LABS: CREATININE 1.2 mg/dL (0.55-1.3)
[2021-03-01 14:46] LABS: BILIRUBIN,TOTAL 0.6 mg/dL (0.2-1); TOT PROT 6.2 g/dl (6.4-8.2)
[2021-03-01] MEDS: THIAMINE HCL 100 MG TABLET (FP) PO SCH (23:19)
[2021-03-02] MEDS: PRENATAL VITAMINS W/ FOLIC ACID TABLET (FP) PO SCH (09:49)
[2021-03-02] MEDS: THIAMINE HCL 100 MG TABLET (FP) PO SCH (22:30)
[2021-03-02] MEDS: MELATONIN 5 MG TABLETS PO SCH (22:30)
[2021-03-03 07:34] VITALS: BP 121/79; PULSE 71; TEMP 97.6
[2021-03-03] MEDS: PRENATAL VITAMINS W/ FOLIC ACID TABLET (FP) PO SCH (10:41)
== END 2021-03-03 12:05 | disposition left against medical advice (07) | DRG 770 ==
LOC: YASAS 18:52 → Y5N 23:53
PROVIDERS: ADMIT Allergy & Immunology; ATTEND Allergy & Immunology
PROC: HZ2ZZZZ Detoxification Services for Substance Abuse Treatment (ICD-10-PCS; principal; 2021-02-28)
DX: F10.20 Alcohol dependence, uncomplicated (principal); F14.20 Cocaine dependence, uncomplicated; F12.20 Cannabis dependence, uncomplicated; F31.9 Bipolar disorder, unspecified; F41.9 Anxiety disorder, unspecified; M54.5 Low back pain; M25.561 Pain in right knee; G89.29 Other chronic pain; Z87.891 Personal history of nicotine dependence; Z86.11 Personal history of tuberculosis; Z88.0 Allergy status to penicillin; Z91.018 Allergy to other foods; Z91.013 Allergy to seafood
CPT/HCPCS: 36415; 80053; 85027; 86593; 86780; C9803; U0003; U0005

== ENCOUNTER 2021-06-07 18:33 | Inpatient (IN) | payer OTHER ==
[2021-06-07 20:36] VITALS: BMI 26.4
[2021-06-07] MEDS ORDERED: ACETAMINOPHEN 325 MG TABLET (FP) PO PRN (23:43)
[2021-06-07] MEDS ORDERED: MAGNESIUM HYDROX 2400MG/30ML ORAL SUSPENSION 30 ML CUP PO PRN (23:43)
[2021-06-07] MEDS ORDERED: P-EPHED 60MG/TRIPROLIDI 2.5MG TABLET PO PRN (23:43)
[2021-06-07] MEDS ORDERED: MAGNESIUM CITRATE 300 ML BOTTLE PO PRN (23:43)
[2021-06-07] MEDS ORDERED: MAG HYDROX/AL HYDROX/SIMETH 30 ML UNIT-DOSE CUP PO PRN (23:43)
[2021-06-07] MEDS ORDERED: NICOTINE POLACRILEX 2 MG GUM BUC PRN (23:43)
[2021-06-07] MEDS ORDERED: LOPERAMIDE HCL 2 MG CAPSULE PO PRN (23:43)
[2021-06-07] MEDS ORDERED: IBUPROFEN 400 MG TABLET (FP) PO PRN (23:43)
[2021-06-07] MEDS ORDERED: guaiFENesin 200 MG/10 ML 10 ML UNIT-DOSE CUPS PO PRN (23:43)
[2021-06-08] MEDS: MELATONIN 5 MG TABLETS PO SCH ×2 (01:01→21:32)
[2021-06-08 08:08] LABS: URINE APPEARANCE CLEAR; URINE BILIRUBIN NEGATIVE (NEGATIVE); URINE COLOR YELLOW; URINE GLUCOSE (UA) NEGATIVE (NEGATIVE); URINE KETONE TRACE (NEGATIVE); URINE LEUK ESTERASE NEGATIVE (NEGATIVE); URINE NITRITE NEGATIVE (NEGATIVE); URINE PROTEIN NEGATIVE (NEGATIVE); URINE UROBILINOGEN 0.2 mg/dL (0.2-1.0)
[2021-06-08] MEDS: PRENATAL VITAMINS W/ FOLIC ACID TABLET (FP) PO SCH (09:28)
[2021-06-08] MEDS: NICOTINE 14 MG/24 HOURS TOPICAL PATCH TD SCH (09:28)
[2021-06-08] MEDS: THIAMINE HCL 100 MG TABLET (FP) PO SCH (21:32)
[2021-06-09] MEDS: PRENATAL VITAMINS W/ FOLIC ACID TABLET (FP) PO SCH (09:26)
[2021-06-09] MEDS: NICOTINE 14 MG/24 HOURS TOPICAL PATCH TD SCH (09:26)
[2021-06-09 12:30] LABS: HEMATOCRIT 41.1 % (35.4-49); MCH 27.7 pg (25.7-33.7); MCHC 31.6 g/dl (32.0-35.9); MEAN CELL VOLUME 87.6 fl (80-96); MEAN PLT VOLUME 8.8 fl (7.5-11.1); PLATELET COUNT 304 10^3/uL (134-434); RBC 4.69 M/mm3 (4.00-5.60); RDW 14.2 % (11.9-15.9)
[2021-06-09] MEDS: TOLNAFTATE 1% CREAM 15 GM TUBE TP SCH ×2 (12:39→23:07)
[2021-06-09 13:01] LABS: CREATININE 1.3 mg/dL (0.55-1.3)
[2021-06-09 13:02] LABS: ALBUMIN 3.7 g/dl (3.4-5.0); BILIRUBIN,TOTAL 0.3 mg/dL (0.2-1); BLOOD UREA NITROGEN 18.9 mg/dL (7-18)
[2021-06-09 13:03] LABS: TOT PROT 7.3 g/dl (6.4-8.2)
[2021-06-09 13:04] LABS: CALCIUM 8.8 mg/dL (8.5-10.1)
[2021-06-09] MEDS: MELATONIN 5 MG TABLETS PO SCH (23:07)
[2021-06-09] MEDS: THIAMINE HCL 100 MG TABLET (FP) PO SCH (23:07)
[2021-06-10] MEDS: PRENATAL VITAMINS W/ FOLIC ACID TABLET (FP) PO SCH (09:38)
[2021-06-10] MEDS: TOLNAFTATE 1% CREAM 15 GM TUBE TP SCH ×2 (09:38→21:32)
[2021-06-10] MEDS: NICOTINE 14 MG/24 HOURS TOPICAL PATCH TD SCH (09:38)
[2021-06-10] MEDS: MELATONIN 5 MG TABLETS PO SCH (21:31)
[2021-06-10] MEDS: THIAMINE HCL 100 MG TABLET (FP) PO SCH (21:32)
[2021-06-11 07:00] VITALS: TEMP 98.6
[2021-06-11] MEDS: TOLNAFTATE 1% CREAM 15 GM TUBE TP SCH ×2 (09:39→21:53)
[2021-06-11] MEDS: NICOTINE 14 MG/24 HOURS TOPICAL PATCH TD SCH (09:39)
[2021-06-11] MEDS: PRENATAL VITAMINS W/ FOLIC ACID TABLET (FP) PO SCH (09:39)
[2021-06-11] MEDS: MELATONIN 5 MG TABLETS PO SCH (21:53)
[2021-06-11] MEDS: THIAMINE HCL 100 MG TABLET (FP) PO SCH (21:53)
[2021-06-12 06:59] VITALS: BP 132/90; PULSE 81
[2021-06-12] MEDS: PRENATAL VITAMINS W/ FOLIC ACID TABLET (FP) PO SCH (09:55)
[2021-06-12] MEDS: NICOTINE 14 MG/24 HOURS TOPICAL PATCH TD SCH (09:55)
[2021-06-12] MEDS: TOLNAFTATE 1% CREAM 15 GM TUBE TP SCH (09:55)
== END 2021-06-12 14:06 | disposition home or self-care (01) | DRG 772 ==
LOC: YASAS 18:33 → Y3W 23:20
PROVIDERS: ADMIT Allergy & Immunology; ATTEND Allergy & Immunology
PROC: HZ42ZZZ Group Counseling for Substance Abuse Treatment, Cognitive-Behavioral (ICD-10-PCS; principal; 2021-06-07)
DX: F10.20 Alcohol dependence, uncomplicated (principal); F14.20 Cocaine dependence, uncomplicated; F12.20 Cannabis dependence, uncomplicated; F17.210 Nicotine dependence, cigarettes, uncomplicated; F31.9 Bipolar disorder, unspecified; F41.9 Anxiety disorder, unspecified; M25.561 Pain in right knee; M54.50 Low back pain, unspecified; G89.29 Other chronic pain; Z86.11 Personal history of tuberculosis; Z86.19 Personal history of other infectious and parasitic diseases; Z86.59 Personal history of other mental and behavioral disorders; Z88.0 Allergy status to penicillin; Z91.013 Allergy to seafood
CPT/HCPCS: 36415; 80053; 81003; 85027; 86593; 86780; C9803; U0003; U0005

== ENCOUNTER 2021-09-11 12:35 | Inpatient (IN) | payer OTHER ==
[2021-09-11] MEDS ORDERED: MAGNESIUM CITRATE 300 ML BOTTLE PO PRN (14:55)
[2021-09-11] MEDS ORDERED: MAG HYDROX/AL HYDROX/SIMETH 30 ML UNIT-DOSE CUP PO PRN (14:55)
[2021-09-11] MEDS ORDERED: BISMUTH SUBSALICYLATE 524 MG/30 ML PO PRN (14:55)
[2021-09-11] MEDS ORDERED: ONDANSETRON *ODT* 4 MG TABLET SL PRN (14:55)
[2021-09-11] MEDS ORDERED: chlordiazePOXIDE HCL 25 MG CAPSULE PO PRN (14:55)
[2021-09-11] MEDS ORDERED: IBUPROFEN 400 MG TABLET (FP) PO PRN (14:55)
[2021-09-11] MEDS ORDERED: NICOTINE 10 MG CARTRIDGE (INHALER) IH PRN (14:55)
[2021-09-11] MEDS ORDERED: ACETAMINOPHEN 325 MG TABLET (FP) PO PRN ×2 (14:55)
[2021-09-11] MEDS ORDERED: LOPERAMIDE HCL 2 MG CAPSULE PO PRN (14:55)
[2021-09-11] MEDS ORDERED: DICYCLOMINE HCL 10 MG CAPSULE PO PRN (14:55)
[2021-09-11] MEDS ORDERED: MAGNESIUM HYDROX 2400MG/30ML ORAL SUSPENSION 30 ML CUP PO PRN (14:55)
[2021-09-11] MEDS ORDERED: BENZOCAINE/MENTHOL (CHLORASEPTIC ) LOZENGE MM PRN (14:55)
[2021-09-11] MEDS ORDERED: METHOCARBAMOL 500 MG TABLET PO PRN (14:55)
[2021-09-11 15:44] VITALS: BMI 18.8
[2021-09-11] MEDS ORDERED: LORazepam 1 MG TABLET PO PRN (16:16)
[2021-09-11] MEDS ORDERED: chlordiazePOXIDE HCL 25 MG CAPSULE PO SCH (17:00)
[2021-09-11] MEDS: hydrOXYzine PAMOATE 25 MG CAPSULE (FP) PO SCH ×2 (18:59→22:59)
[2021-09-11] MEDS: LORazepam 2 MG TABLET PO SCH ×2 (19:00→23:00)
[2021-09-11] MEDS: PRENATAL VITAMINS W/ FOLIC ACID TABLET (FP) PO SCH (19:58)
[2021-09-11] MEDS: MELATONIN 5 MG TABLETS PO SCH (22:58)
[2021-09-11] MEDS: THIAMINE HCL 100 MG TABLET (FP) PO SCH (22:59)
[2021-09-12] MEDS: LORazepam 2 MG TABLET PO SCH ×3 (06:20→18:31)
[2021-09-12] MEDS: hydrOXYzine PAMOATE 25 MG CAPSULE (FP) PO SCH ×5 (07:36→23:59)
[2021-09-12] MEDS: PRENATAL VITAMINS W/ FOLIC ACID TABLET (FP) PO SCH (10:09)
[2021-09-12 12:10] LABS: HEMOGLOBIN 13.1 GM/dL (11.7-16.9); MCHC 32.8 g/dl (32.0-35.9); MEAN CELL VOLUME 85.3 fl (80-96); MEAN PLT VOLUME 8.4 fl (7.5-11.1); PLATELET COUNT 218 10^3/uL (134-434); RBC 4.69 M/mm3 (4.00-5.60); RDW 14.2 % (11.9-15.9); WHITE BLOOD COUNT 4.5 K/mm3 (4.0-10.0)
[2021-09-12 12:44] LABS: ALBUMIN 3.9 g/dl (3.4-5.0); BLOOD UREA NITROGEN 13.1 mg/dL (7-18); CALCIUM 9.3 mg/dL (8.5-10.1)
[2021-09-12 12:47] LABS: CREATININE 1.3 mg/dL (0.55-1.3)
[2021-09-12 12:48] LABS: BILIRUBIN,TOTAL 0.6 mg/dL (0.2-1)
[2021-09-12 12:49] LABS: TOT PROT 7.2 g/dl (6.4-8.2)
[2021-09-12] MEDS: MELATONIN 5 MG TABLETS PO SCH (23:59)
[2021-09-13] MEDS: LORazepam 2 MG TABLET PO SCH
[2021-09-13] MEDS ORDERED: chlordiazePOXIDE HCL 25 MG CAPSULE PO SCH (05:00)
[2021-09-13] MEDS: hydrOXYzine PAMOATE 25 MG CAPSULE (FP) PO SCH ×5 (06:35→22:38)
[2021-09-13] MEDS: LORazepam 1 MG TABLET PO SCH ×4 (06:35→22:36)
[2021-09-13] MEDS: PRENATAL VITAMINS W/ FOLIC ACID TABLET (FP) PO SCH (12:12)
[2021-09-13] MEDS: THIAMINE HCL 100 MG TABLET (FP) PO SCH ×2 (22:36)
[2021-09-13] MEDS: MELATONIN 5 MG TABLETS PO SCH (22:36)
[2021-09-14] MEDS ORDERED: LORazepam 0.5 MG TABLET PO PRN
[2021-09-14] MEDS ORDERED: chlordiazePOXIDE HCL 10 MG CAPSULE PO PRN
[2021-09-14 00:06] LABS: SARS-CoV-2 NAA Not Detected (Not Detected)
[2021-09-14] MEDS ORDERED: chlordiazePOXIDE HCL 10 MG CAPSULE PO SCH (05:00)
[2021-09-14] MEDS: hydrOXYzine PAMOATE 25 MG CAPSULE (FP) PO SCH ×5 (08:04→22:18)
[2021-09-14] MEDS: LORazepam 0.5 MG TABLET PO SCH ×4 (08:04→22:20)
[2021-09-14] MEDS: PRENATAL VITAMINS W/ FOLIC ACID TABLET (FP) PO SCH (10:18)
[2021-09-14] MEDS: THIAMINE HCL 100 MG TABLET (FP) PO SCH (22:17)
[2021-09-14] MEDS: MELATONIN 5 MG TABLETS PO SCH (22:18)
[2021-09-15] MEDS ORDERED: LORazepam 0.5 MG TABLET PO ONE (05:00)
[2021-09-15] MEDS ORDERED: chlordiazePOXIDE HCL 10 MG CAPSULE PO SCH (05:00)
[2021-09-15] MEDS: hydrOXYzine PAMOATE 25 MG CAPSULE (FP) PO SCH ×2 (07:42→10:27)
[2021-09-15 09:26] VITALS: BP 127/78; PULSE 83; TEMP 98
[2021-09-15] MEDS: PRENATAL VITAMINS W/ FOLIC ACID TABLET (FP) PO SCH (10:26)
[2021-09-16] MEDS ORDERED: chlordiazePOXIDE HCL 10 MG CAPSULE PO ONE (05:00)
== END 2021-09-15 12:31 | disposition other institution (70) | DRG 774 ==
LOC: YASAS 12:35 → Y6N 17:06
PROVIDERS: ADMIT Allergy & Immunology; ATTEND Allergy & Immunology
PROC: HZ2ZZZZ Detoxification Services for Substance Abuse Treatment (ICD-10-PCS; principal; 2021-09-11)
DX: F10.230 Alcohol dependence with withdrawal, uncomplicated (principal); F14.20 Cocaine dependence, uncomplicated; F12.20 Cannabis dependence, uncomplicated; F17.213 Nicotine dependence, cigarettes, with withdrawal; F31.9 Bipolar disorder, unspecified; R63.4 Abnormal weight loss; Z68.1 Body mass index [BMI] 19.9 or less, adult; Z86.19 Personal history of other infectious and parasitic diseases; Z86.11 Personal history of tuberculosis; Z88.0 Allergy status to penicillin; Z91.013 Allergy to seafood; Z91.014 Allergy to mammalian meats; Z56.0 Unemployment, unspecified; Z59.00 Homelessness unspecified
CPT/HCPCS: 36415; 80053; 82962; 85027; 86593; 86780; C9803-CS; U0003; U0005

== ENCOUNTER 2021-09-15 12:45 | Inpatient (IN) | payer OTHER ==
[2021-09-15] MEDS ORDERED: guaiFENesin 200 MG/10 ML 10 ML UNIT-DOSE CUPS PO PRN (13:33)
[2021-09-15] MEDS ORDERED: IBUPROFEN 400 MG TABLET (FP) PO PRN (13:33)
[2021-09-15] MEDS ORDERED: LOPERAMIDE HCL 2 MG CAPSULE PO PRN (13:33)
[2021-09-15] MEDS ORDERED: ACETAMINOPHEN 325 MG TABLET (FP) PO PRN (13:33)
[2021-09-15] MEDS ORDERED: MAGNESIUM HYDROX 2400MG/30ML ORAL SUSPENSION 30 ML CUP PO PRN (13:33)
[2021-09-15] MEDS ORDERED: NICOTINE 10 MG CARTRIDGE (INHALER) IH PRN (13:33)
[2021-09-15] MEDS ORDERED: P-EPHED 60MG/TRIPROLIDI 2.5MG TABLET PO PRN (13:33)
[2021-09-15] MEDS ORDERED: MAG HYDROX/AL HYDROX/SIMETH 30 ML UNIT-DOSE CUP PO PRN (13:33)
[2021-09-15] MEDS ORDERED: MAGNESIUM CITRATE 300 ML BOTTLE PO PRN (13:33)
[2021-09-15] MEDS: hydrOXYzine PAMOATE 25 MG CAPSULE (FP) PO SCH ×3 (15:27→22:05)
[2021-09-15] MEDS: MELATONIN 5 MG TABLETS PO SCH (22:04)
[2021-09-15] MEDS: THIAMINE HCL 100 MG TABLET (FP) PO SCH (22:05)
[2021-09-16] MEDS: hydrOXYzine PAMOATE 25 MG CAPSULE (FP) PO SCH ×5 (07:04→21:45)
[2021-09-16] MEDS: NICOTINE 7 MG/24 HOURS TOPICAL PATCH TD SCH (09:49)
[2021-09-16] MEDS: PRENATAL VITAMINS W/ FOLIC ACID TABLET (FP) PO SCH (09:49)
[2021-09-16] MEDS: THIAMINE HCL 100 MG TABLET (FP) PO SCH (21:45)
[2021-09-16] MEDS: MELATONIN 5 MG TABLETS PO SCH (21:45)
[2021-09-17] MEDS: hydrOXYzine PAMOATE 25 MG CAPSULE (FP) PO SCH ×5 (06:47→21:41)
[2021-09-17] MEDS: PRENATAL VITAMINS W/ FOLIC ACID TABLET (FP) PO SCH (10:50)
[2021-09-17] MEDS: NICOTINE 7 MG/24 HOURS TOPICAL PATCH TD SCH (10:50)
[2021-09-17] MEDS: THIAMINE HCL 100 MG TABLET (FP) PO SCH (21:39)
[2021-09-17] MEDS: MELATONIN 5 MG TABLETS PO SCH (21:39)
[2021-09-18] MEDS: hydrOXYzine PAMOATE 25 MG CAPSULE (FP) PO SCH ×5 (06:33→21:48)
[2021-09-18] MEDS: PRENATAL VITAMINS W/ FOLIC ACID TABLET (FP) PO SCH (09:40)
[2021-09-18] MEDS: NICOTINE 7 MG/24 HOURS TOPICAL PATCH TD SCH (09:41)
[2021-09-18] MEDS: MELATONIN 5 MG TABLETS PO SCH (21:48)
[2021-09-18] MEDS: THIAMINE HCL 100 MG TABLET (FP) PO SCH (21:48)
[2021-09-19] MEDS: hydrOXYzine PAMOATE 25 MG CAPSULE (FP) PO SCH ×5 (07:14→21:38)
[2021-09-19] MEDS: PRENATAL VITAMINS W/ FOLIC ACID TABLET (FP) PO SCH (10:15)
[2021-09-19] MEDS: NICOTINE 7 MG/24 HOURS TOPICAL PATCH TD SCH (10:15)
[2021-09-19 14:08] LABS: SARS-CoV-2 NAA Not Detected (Not Detected)
[2021-09-19] MEDS: THIAMINE HCL 100 MG TABLET (FP) PO SCH (21:38)
[2021-09-19] MEDS: MELATONIN 5 MG TABLETS PO SCH (21:38)
[2021-09-20] MEDS: hydrOXYzine PAMOATE 25 MG CAPSULE (FP) PO SCH ×5 (06:08→21:38)
[2021-09-20] MEDS: PRENATAL VITAMINS W/ FOLIC ACID TABLET (FP) PO SCH (10:46)
[2021-09-20] MEDS: NICOTINE 7 MG/24 HOURS TOPICAL PATCH TD SCH (10:46)
[2021-09-20] MEDS: THIAMINE HCL 100 MG TABLET (FP) PO SCH (21:38)
[2021-09-20] MEDS: MELATONIN 5 MG TABLETS PO SCH (21:38)
[2021-09-21] MEDS: hydrOXYzine PAMOATE 25 MG CAPSULE (FP) PO SCH ×5 (07:11→21:44)
[2021-09-21] MEDS: PRENATAL VITAMINS W/ FOLIC ACID TABLET (FP) PO SCH (10:01)
[2021-09-21] MEDS: NICOTINE 7 MG/24 HOURS TOPICAL PATCH TD SCH (10:01)
[2021-09-21] MEDS: MELATONIN 5 MG TABLETS PO SCH (21:44)
[2021-09-21] MEDS: THIAMINE HCL 100 MG TABLET (FP) PO SCH (21:44)
[2021-09-22] MEDS: hydrOXYzine PAMOATE 25 MG CAPSULE (FP) PO SCH ×2 (05:54→11:44)
[2021-09-22 06:46] VITALS: BP 133/82; PULSE 77; TEMP 97.5
[2021-09-22] MEDS: PRENATAL VITAMINS W/ FOLIC ACID TABLET (FP) PO SCH (11:44)
[2021-09-22] MEDS: NICOTINE 7 MG/24 HOURS TOPICAL PATCH TD SCH (11:44)
== END 2021-09-22 13:53 | disposition home or self-care (01) | DRG 772 ==
LOC: YASAS 12:45 → Y5N 12:46 → Y3W 09-17 13:47
PROVIDERS: ADMIT Allergy & Immunology; ATTEND Allergy & Immunology
PROC: HZ42ZZZ Group Counseling for Substance Abuse Treatment, Cognitive-Behavioral (ICD-10-PCS; principal; 2021-09-15)
DX: F10.20 Alcohol dependence, uncomplicated (principal); F14.20 Cocaine dependence, uncomplicated; F12.20 Cannabis dependence, uncomplicated; Z86.19 Personal history of other infectious and parasitic diseases; Z87.891 Personal history of nicotine dependence; Z88.0 Allergy status to penicillin; Z91.013 Allergy to seafood; Z91.018 Allergy to other foods; Z59.01 Sheltered homelessness
CPT/HCPCS: C9803-CS; U0003; U0005

== ENCOUNTER 2021-10-17 01:51 | Inpatient (IN) | payer OTHER ==
[2021-10-17] MEDS ORDERED: MAG HYDROX/AL HYDROX/SIMETH 30 ML UNIT-DOSE CUP PO PRN (02:05)
[2021-10-17] MEDS ORDERED: MAGNESIUM CITRATE 300 ML BOTTLE PO PRN (02:05)
[2021-10-17] MEDS ORDERED: MAGNESIUM HYDROX 2400MG/30ML ORAL SUSPENSION 30 ML CUP PO PRN (02:05)
[2021-10-17] MEDS ORDERED: ACETAMINOPHEN 325 MG TABLET (FP) PO PRN (02:05)
[2021-10-17] MEDS ORDERED: LOPERAMIDE HCL 2 MG CAPSULE PO PRN (02:05)
[2021-10-17] MEDS ORDERED: P-EPHED 60MG/TRIPROLIDI 2.5MG TABLET PO PRN (02:05)
[2021-10-17 02:17] VITALS: BMI 26.6
[2021-10-17 14:15] LABS: HEMATOCRIT 37.6 % (35.4-49); MCH 27.7 pg (25.7-33.7); MCHC 32.1 g/dl (32.0-35.9); MEAN CELL VOLUME 86.4 fl (80-96); MEAN PLT VOLUME 8.8 fl (7.5-11.1); PLATELET COUNT 231 10^3/uL (134-434); RBC 4.35 M/mm3 (4.00-5.60); RDW 14.3 % (11.9-15.9); WHITE BLOOD COUNT 6.4 K/mm3 (4.0-10.0)
[2021-10-17 14:41] LABS: CALCIUM 8.8 mg/dL (8.5-10.1)
[2021-10-17 14:42] LABS: ALBUMIN 3.7 g/dl (3.4-5.0); BLOOD UREA NITROGEN 25.4 mg/dL (7-18)
[2021-10-17 14:44] LABS: CREATININE 1.1 mg/dL (0.55-1.3)
[2021-10-17 14:46] LABS: BILIRUBIN,TOTAL 0.6 mg/dL (0.2-1)
[2021-10-17] MEDS: PRENATAL VITAMINS W/ FOLIC ACID TABLET (FP) PO SCH (18:47)
[2021-10-17] MEDS: THIAMINE HCL 100 MG TABLET (FP) PO SCH (21:50)
[2021-10-17] MEDS: MELATONIN 5 MG TABLETS PO SCH (21:50)
[2021-10-18] MEDS: guaiFENesin 200 MG/10 ML 10 ML UNIT-DOSE CUPS PO PRN ×3 (06:58→21:21)
[2021-10-18] MEDS: PRENATAL VITAMINS W/ FOLIC ACID TABLET (FP) PO SCH (10:40)
[2021-10-18] MEDS: THIAMINE HCL 100 MG TABLET (FP) PO SCH (21:21)
[2021-10-18] MEDS: MELATONIN 5 MG TABLETS PO SCH (21:21)
[2021-10-19] MEDS: PRENATAL VITAMINS W/ FOLIC ACID TABLET (FP) PO SCH (10:03)
[2021-10-19] MEDS: guaiFENesin 200 MG/10 ML 10 ML UNIT-DOSE CUPS PO PRN ×2 (10:03→21:17)
[2021-10-19] MEDS: MELATONIN 5 MG TABLETS PO SCH (21:16)
[2021-10-19] MEDS: THIAMINE HCL 100 MG TABLET (FP) PO SCH (21:16)
[2021-10-19] MEDS: IBUPROFEN 400 MG TABLET (FP) PO PRN (21:17)
[2021-10-20] MEDS: guaiFENesin 200 MG/10 ML 10 ML UNIT-DOSE CUPS PO PRN (10:21)
[2021-10-20] MEDS: PRENATAL VITAMINS W/ FOLIC ACID TABLET (FP) PO SCH (10:21)
[2021-10-20] MEDS: BACITRACIN 0.9 GM PACKET TP SCH (15:32)
[2021-10-20] MEDS: THIAMINE HCL 100 MG TABLET (FP) PO SCH (21:47)
[2021-10-20] MEDS: MELATONIN 5 MG TABLETS PO SCH (21:47)
[2021-10-21] MEDS: IBUPROFEN 400 MG TABLET (FP) PO PRN (06:42)
[2021-10-21] MEDS: BACITRACIN 0.9 GM PACKET TP SCH (10:05)
[2021-10-21] MEDS: PRENATAL VITAMINS W/ FOLIC ACID TABLET (FP) PO SCH (10:06)
[2021-10-21] MEDS: guaiFENesin 200 MG/10 ML 10 ML UNIT-DOSE CUPS PO PRN (10:06)
[2021-10-21 20:37] LABS: PH,URINE 6.5 (5.0-8.0); URINE APPEARANCE CLEAR; URINE BILIRUBIN NEGATIVE (NEGATIVE); URINE COLOR YELLOW; URINE GLUCOSE (UA) NEGATIVE (NEGATIVE); URINE KETONE NEGATIVE (NEGATIVE); URINE LEUK ESTERASE NEGATIVE (NEGATIVE); URINE NITRITE NEGATIVE (NEGATIVE); URINE PROTEIN NEGATIVE (NEGATIVE); URINE UROBILINOGEN 0.2 mg/dL (0.2-1.0)
[2021-10-21] MEDS: MELATONIN 5 MG TABLETS PO SCH (21:19)
[2021-10-21] MEDS: THIAMINE HCL 100 MG TABLET (FP) PO SCH (21:19)
[2021-10-22] MEDS ORDERED: METHOCARBAMOL 500 MG TABLET PO ONE ×2 (04:05→05:45)
[2021-10-22 10:07] LABS: SARS-CoV-2 NAA Not Detected (Not Detected)
[2021-10-22] MEDS: guaiFENesin 200 MG/10 ML 10 ML UNIT-DOSE CUPS PO PRN (10:18)
[2021-10-22] MEDS: BACITRACIN 0.9 GM PACKET TP SCH (10:18)
[2021-10-22] MEDS: PRENATAL VITAMINS W/ FOLIC ACID TABLET (FP) PO SCH (10:18)
[2021-10-22] MEDS: IBUPROFEN 400 MG TABLET (FP) PO PRN (10:19)
[2021-10-22] MEDS: LIDOCAINE 5% TOPICAL PATCH TP SCH (12:04)
[2021-10-22] MEDS: METHYL SALICYLATE/MENTHOL OINT 30 GM TUBE TP SCH (22:39)
[2021-10-22] MEDS: MELATONIN 5 MG TABLETS PO SCH (22:39)
[2021-10-22] MEDS: THIAMINE HCL 100 MG TABLET (FP) PO SCH (22:39)
[2021-10-22] MEDS: LIDOCAINE PATCH REMOVAL MC SCH (22:40)
[2021-10-23] MEDS: LIDOCAINE 5% TOPICAL PATCH TP SCH (10:04)
[2021-10-23] MEDS: BACITRACIN 0.9 GM PACKET TP SCH (10:04)
[2021-10-23] MEDS: PRENATAL VITAMINS W/ FOLIC ACID TABLET (FP) PO SCH (10:04)
[2021-10-23] MEDS: guaiFENesin 200 MG/10 ML 10 ML UNIT-DOSE CUPS PO PRN (10:04)
[2021-10-23] MEDS: METHYL SALICYLATE/MENTHOL OINT 30 GM TUBE TP SCH (22:03)
[2021-10-23] MEDS: THIAMINE HCL 100 MG TABLET (FP) PO SCH (22:03)
[2021-10-23] MEDS: MELATONIN 5 MG TABLETS PO SCH (22:03)
[2021-10-23] MEDS: LIDOCAINE PATCH REMOVAL MC SCH (22:04)
[2021-10-24] MEDS: BACITRACIN 0.9 GM PACKET TP SCH (10:22)
[2021-10-24] MEDS: PRENATAL VITAMINS W/ FOLIC ACID TABLET (FP) PO SCH (10:22)
[2021-10-24] MEDS: LIDOCAINE 5% TOPICAL PATCH TP SCH (10:22)
[2021-10-24] MEDS: guaiFENesin 200 MG/10 ML 10 ML UNIT-DOSE CUPS PO PRN (10:23)
[2021-10-24] MEDS: METHYL SALICYLATE/MENTHOL OINT 30 GM TUBE TP SCH (21:28)
[2021-10-24] MEDS: THIAMINE HCL 100 MG TABLET (FP) PO SCH (21:29)
[2021-10-24] MEDS: LIDOCAINE PATCH REMOVAL MC SCH (21:29)
[2021-10-24] MEDS: MELATONIN 5 MG TABLETS PO SCH (21:29)
[2021-10-25] MEDS: guaiFENesin 200 MG/10 ML 10 ML UNIT-DOSE CUPS PO PRN (10:31)
[2021-10-25] MEDS: PRENATAL VITAMINS W/ FOLIC ACID TABLET (FP) PO SCH (10:31)
[2021-10-25] MEDS: BACITRACIN 0.9 GM PACKET TP SCH (10:31)
[2021-10-25] MEDS: LIDOCAINE 5% TOPICAL PATCH TP SCH (10:31)
[2021-10-25] MEDS: THIAMINE HCL 100 MG TABLET (FP) PO SCH (21:40)
[2021-10-25] MEDS: METHYL SALICYLATE/MENTHOL OINT 30 GM TUBE TP SCH (21:40)
[2021-10-25] MEDS: MELATONIN 5 MG TABLETS PO SCH (21:40)
[2021-10-25] MEDS: LIDOCAINE PATCH REMOVAL MC SCH (21:40)
[2021-10-25] MEDS: IBUPROFEN 400 MG TABLET (FP) PO PRN (21:51)
[2021-10-26] MEDS: IBUPROFEN 400 MG TABLET (FP) PO PRN (06:53)
[2021-10-26] MEDS: BACITRACIN 0.9 GM PACKET TP SCH (10:25)
[2021-10-26] MEDS: PRENATAL VITAMINS W/ FOLIC ACID TABLET (FP) PO SCH (10:25)
[2021-10-26] MEDS: LIDOCAINE 5% TOPICAL PATCH TP SCH (10:25)
[2021-10-26] MEDS: guaiFENesin 200 MG/10 ML 10 ML UNIT-DOSE CUPS PO PRN (10:25)
[2021-10-26] MEDS: THIAMINE HCL 100 MG TABLET (FP) PO SCH (22:02)
[2021-10-26] MEDS: METHYL SALICYLATE/MENTHOL OINT 30 GM TUBE TP SCH (22:02)
[2021-10-26] MEDS: MELATONIN 5 MG TABLETS PO SCH (22:02)
[2021-10-26] MEDS: LIDOCAINE PATCH REMOVAL MC SCH (22:02)
[2021-10-27] MEDS: LIDOCAINE 5% TOPICAL PATCH TP SCH (10:13)
[2021-10-27] MEDS: guaiFENesin 200 MG/10 ML 10 ML UNIT-DOSE CUPS PO PRN (10:13)
[2021-10-27] MEDS: BACITRACIN 0.9 GM PACKET TP SCH (10:13)
[2021-10-27] MEDS: PRENATAL VITAMINS W/ FOLIC ACID TABLET (FP) PO SCH (10:14)
[2021-10-27] MEDS: METHYL SALICYLATE/MENTHOL OINT 30 GM TUBE TP SCH (21:59)
[2021-10-27] MEDS: LIDOCAINE PATCH REMOVAL MC SCH (21:59)
[2021-10-27] MEDS: THIAMINE HCL 100 MG TABLET (FP) PO SCH (22:00)
[2021-10-27] MEDS: MELATONIN 5 MG TABLETS PO SCH (22:00)
[2021-10-28] MEDS: PRENATAL VITAMINS W/ FOLIC ACID TABLET (FP) PO SCH (10:12)
[2021-10-28] MEDS: LIDOCAINE 5% TOPICAL PATCH TP SCH (10:13)
[2021-10-28] MEDS: guaiFENesin 200 MG/10 ML 10 ML UNIT-DOSE CUPS PO PRN (10:14)
[2021-10-28] MEDS: THIAMINE HCL 100 MG TABLET (FP) PO SCH (22:50)
[2021-10-28] MEDS: MELATONIN 5 MG TABLETS PO SCH (22:50)
[2021-10-28] MEDS: METHYL SALICYLATE/MENTHOL OINT 30 GM TUBE TP SCH (22:50)
[2021-10-28] MEDS: LIDOCAINE PATCH REMOVAL MC SCH (22:50)
[2021-10-29] MEDS: PRENATAL VITAMINS W/ FOLIC ACID TABLET (FP) PO SCH (10:12)
[2021-10-29] MEDS: LIDOCAINE 5% TOPICAL PATCH TP SCH (10:12)
[2021-10-29] MEDS: guaiFENesin 200 MG/10 ML 10 ML UNIT-DOSE CUPS PO PRN (10:13)
[2021-10-29] MEDS: THIAMINE HCL 100 MG TABLET (FP) PO SCH (21:35)
[2021-10-29] MEDS: MELATONIN 5 MG TABLETS PO SCH (21:35)
[2021-10-29] MEDS: LIDOCAINE PATCH REMOVAL MC SCH (21:35)
[2021-10-29] MEDS: METHYL SALICYLATE/MENTHOL OINT 30 GM TUBE TP SCH (21:35)
[2021-10-30 06:58] VITALS: BP 137/90; PULSE 83; TEMP 97.5
== END 2021-10-30 08:59 | disposition home or self-care (01) | DRG 772 ==
LOC: YASAS 01:51 → Y3W 18:08
PROVIDERS: ADMIT Allergy & Immunology; ATTEND Psychiatry & Neurology Pain Medicine
PROC: HZ42ZZZ Group Counseling for Substance Abuse Treatment, Cognitive-Behavioral (ICD-10-PCS; principal; 2021-10-17)
DX: F10.20 Alcohol dependence, uncomplicated (principal); F14.20 Cocaine dependence, uncomplicated; F12.20 Cannabis dependence, uncomplicated; F31.9 Bipolar disorder, unspecified; M54.50 Low back pain, unspecified; G89.29 Other chronic pain; Z87.891 Personal history of nicotine dependence; Z86.19 Personal history of other infectious and parasitic diseases; Z86.11 Personal history of tuberculosis; Z88.0 Allergy status to penicillin; Z91.013 Allergy to seafood
CPT/HCPCS: 36415; 71046-TC-FY; 80053; 81003; 85027; 86593; 86780; C9803-CS; U0003; U0005

== ENCOUNTER 2021-12-17 21:05 | Inpatient (IN) | payer OTHER ==
[2021-12-17 21:47] VITALS: BMI 26.4
[2021-12-17] MEDS ORDERED: IBUPROFEN 400 MG TABLET (FP) PO PRN (22:02)
[2021-12-17] MEDS ORDERED: DICYCLOMINE HCL 10 MG CAPSULE PO PRN (22:02)
[2021-12-17] MEDS ORDERED: P-EPHED 60MG/TRIPROLIDI 2.5MG TABLET PO PRN (22:02)
[2021-12-17] MEDS ORDERED: ACETAMINOPHEN 325 MG TABLET (FP) PO PRN ×2 (22:02)
[2021-12-17] MEDS ORDERED: BENZOCAINE/MENTHOL (CHLORASEPTIC ) LOZENGE MM PRN (22:02)
[2021-12-17] MEDS ORDERED: MAGNESIUM CITRATE 300 ML BOTTLE PO PRN (22:02)
[2021-12-17] MEDS ORDERED: LOPERAMIDE HCL 2 MG CAPSULE PO PRN (22:02)
[2021-12-17] MEDS ORDERED: ONDANSETRON *ODT* 4 MG TABLET SL PRN (22:02)
[2021-12-17] MEDS ORDERED: guaiFENesin 200 MG/10 ML 10 ML UNIT-DOSE CUPS PO PRN (22:02)
[2021-12-17] MEDS ORDERED: hydrOXYzine PAMOATE 25 MG CAPSULE (FP) PO PRN (22:02)
[2021-12-17] MEDS ORDERED: MAG HYDROX/AL HYDROX/SIMETH 30 ML UNIT-DOSE CUP PO PRN (22:02)
[2021-12-17] MEDS ORDERED: BISMUTH SUBSALICYLATE 524 MG/30 ML PO PRN (22:02)
[2021-12-17] MEDS ORDERED: MAGNESIUM HYDROX 2400MG/30ML ORAL SUSPENSION 30 ML CUP PO PRN (22:02)
[2021-12-17] MEDS ORDERED: METHOCARBAMOL 500 MG TABLET PO PRN (22:02)
[2021-12-18] MEDS ORDERED: IBUPROFEN 600 MG TABLET (FP) PO ONE (01:57)
[2021-12-18] MEDS: IBUPROFEN 600 MG TABLET (FP) PO PRN (01:59)
[2021-12-18] MEDS: PRENATAL VITAMINS W/ FOLIC ACID TABLET (FP) PO SCH (10:49)
[2021-12-18 11:19] LABS: HEMATOCRIT 39.5 % (35.4-49); MCH 27.9 pg (25.7-33.7); MCHC 32.8 g/dl (32.0-35.9); MEAN PLT VOLUME 8.5 fl (7.5-11.1); PLATELET COUNT 211 10^3/uL (134-434); RBC 4.65 M/mm3 (4.00-5.60); RDW 14.4 % (11.9-15.9); WHITE BLOOD COUNT 5.9 K/mm3 (4.0-10.0)
[2021-12-18 12:15] LABS: BLOOD UREA NITROGEN 17.8 mg/dL (7-18); CALCIUM 8.9 mg/dL (8.5-10.1)
[2021-12-18 12:16] LABS: ALBUMIN 3.7 g/dl (3.4-5.0)
[2021-12-18 12:18] LABS: BILIRUBIN,TOTAL 0.3 mg/dL (0.2-1)
[2021-12-18 12:19] LABS: CREATININE 1.3 mg/dL (0.55-1.3); TOT PROT 6.9 g/dl (6.4-8.2)
[2021-12-18] MEDS ORDERED: THIAMINE HCL 100 MG TABLET (FP) PO SCH (22:00)
[2021-12-18] MEDS ORDERED: MELATONIN 5 MG TABLETS PO SCH (22:00)
[2021-12-19] MEDS: IBUPROFEN 600 MG TABLET (FP) PO PRN (07:13)
[2021-12-19 09:36] VITALS: BP 134/77; PULSE 70; TEMP 96.8
[2021-12-19] MEDS: PRENATAL VITAMINS W/ FOLIC ACID TABLET (FP) PO SCH (11:51)
== END 2021-12-19 11:40 | disposition home or self-care (01) | DRG 774 ==
LOC: YASAS 21:05 → Y3N 12-18 02:03
PROVIDERS: ADMIT Allergy & Immunology; ATTEND Allergy & Immunology
PROC: HZ2ZZZZ Detoxification Services for Substance Abuse Treatment (ICD-10-PCS; principal; 2021-12-18)
DX: F10.230 Alcohol dependence with withdrawal, uncomplicated (principal); F14.20 Cocaine dependence, uncomplicated; F12.20 Cannabis dependence, uncomplicated; F31.9 Bipolar disorder, unspecified; M54.50 Low back pain, unspecified; G89.29 Other chronic pain; B18.2 Chronic viral hepatitis C; Z86.11 Personal history of tuberculosis; Z87.891 Personal history of nicotine dependence; Z88.0 Allergy status to penicillin; Z91.013 Allergy to seafood; Z91.014 Allergy to mammalian meats
CPT/HCPCS: 36415; 80053; 85027; 86593; 86780; 87811; C9803-CS; U0003; U0005

== ENCOUNTER 2022-01-06 20:48 | Inpatient (IN) | payer OTHER ==
[2022-01-06 22:05] VITALS: BMI 26.4
[2022-01-06] MEDS ORDERED: ACETAMINOPHEN 325 MG TABLET (FP) PO PRN (22:14)
[2022-01-06] MEDS ORDERED: MAGNESIUM CITRATE 300 ML BOTTLE PO PRN (22:14)
[2022-01-06] MEDS ORDERED: BENZOCAINE/MENTHOL (CHLORASEPTIC ) LOZENGE MM PRN (22:14)
[2022-01-06] MEDS ORDERED: hydrOXYzine PAMOATE 25 MG CAPSULE (FP) PO PRN (22:14)
[2022-01-06] MEDS ORDERED: MAGNESIUM HYDROX 2400MG/30ML ORAL SUSPENSION 30 ML CUP PO PRN (22:14)
[2022-01-06] MEDS ORDERED: guaiFENesin 200 MG/10 ML 10 ML UNIT-DOSE CUPS PO PRN (22:14)
[2022-01-06] MEDS ORDERED: IBUPROFEN 400 MG TABLET (FP) PO PRN (22:14)
[2022-01-06] MEDS ORDERED: P-EPHED 60MG/TRIPROLIDI 2.5MG TABLET PO PRN (22:14)
[2022-01-06] MEDS ORDERED: LOPERAMIDE HCL 2 MG CAPSULE PO PRN (22:14)
[2022-01-06] MEDS ORDERED: MAG HYDROX/AL HYDROX/SIMETH 30 ML UNIT-DOSE CUP PO PRN (22:14)
[2022-01-07] MEDS: MELATONIN 5 MG TABLETS PO SCH ×2 (06:08→21:55)
[2022-01-07] MEDS: PRENATAL VITAMINS W/ FOLIC ACID TABLET (FP) PO SCH (10:11)
[2022-01-07] MEDS: THIAMINE HCL 100 MG TABLET (FP) PO SCH (21:55)
[2022-01-08] MEDS: PRENATAL VITAMINS W/ FOLIC ACID TABLET (FP) PO SCH (10:13)
[2022-01-08] MEDS: THIAMINE HCL 100 MG TABLET (FP) PO SCH (23:14)
[2022-01-08] MEDS: MELATONIN 5 MG TABLETS PO SCH (23:14)
[2022-01-09] MEDS: PRENATAL VITAMINS W/ FOLIC ACID TABLET (FP) PO SCH (11:01)
[2022-01-09] MEDS: THIAMINE HCL 100 MG TABLET (FP) PO SCH (21:56)
[2022-01-09] MEDS: MELATONIN 5 MG TABLETS PO SCH (21:56)
[2022-01-10] MEDS: PRENATAL VITAMINS W/ FOLIC ACID TABLET (FP) PO SCH (10:29)
[2022-01-10] MEDS: MELATONIN 5 MG TABLETS PO SCH (22:00)
[2022-01-10] MEDS: THIAMINE HCL 100 MG TABLET (FP) PO SCH (22:00)
[2022-01-11] MEDS: PRENATAL VITAMINS W/ FOLIC ACID TABLET (FP) PO SCH (09:27)
[2022-01-11] MEDS: MELATONIN 5 MG TABLETS PO SCH (22:18)
[2022-01-11] MEDS: THIAMINE HCL 100 MG TABLET (FP) PO SCH (22:18)
[2022-01-12] MEDS: PRENATAL VITAMINS W/ FOLIC ACID TABLET (FP) PO SCH (10:37)
[2022-01-12] MEDS: MELATONIN 5 MG TABLETS PO SCH (21:56)
[2022-01-12] MEDS: THIAMINE HCL 100 MG TABLET (FP) PO SCH (21:56)
[2022-01-13 08:43] VITALS: RESP 18
[2022-01-13] MEDS: PRENATAL VITAMINS W/ FOLIC ACID TABLET (FP) PO SCH (11:15)
[2022-01-13] MEDS: MELATONIN 5 MG TABLETS PO SCH (21:56)
[2022-01-13] MEDS: THIAMINE HCL 100 MG TABLET (FP) PO SCH (21:56)
[2022-01-14] MEDS: PRENATAL VITAMINS W/ FOLIC ACID TABLET (FP) PO SCH (11:17)
[2022-01-14] MEDS: MELATONIN 5 MG TABLETS PO SCH (22:08)
[2022-01-14] MEDS: THIAMINE HCL 100 MG TABLET (FP) PO SCH (22:08)
[2022-01-15 07:11] VITALS: BP 119/78; PULSE 73; TEMP 97.7
[2022-01-15] MEDS: PRENATAL VITAMINS W/ FOLIC ACID TABLET (FP) PO SCH (11:03)
[2022-01-15] MEDS: THIAMINE HCL 100 MG TABLET (FP) PO SCH (22:06)
[2022-01-15] MEDS: MELATONIN 5 MG TABLETS PO SCH (22:06)
== END 2022-01-16 08:55 | disposition home or self-care (01) | DRG 772 ==
LOC: YASAS 20:48 → Y3E 01-07 04:52 → Y3W 01-07 18:56
PROVIDERS: ADMIT Allergy & Immunology; ATTEND Psychiatry & Neurology Pain Medicine
PROC: HZ42ZZZ Group Counseling for Substance Abuse Treatment, Cognitive-Behavioral (ICD-10-PCS; principal; 2022-01-07)
DX: F10.20 Alcohol dependence, uncomplicated (principal); F14.20 Cocaine dependence, uncomplicated; F12.20 Cannabis dependence, uncomplicated; F31.9 Bipolar disorder, unspecified; M54.50 Low back pain, unspecified; G89.29 Other chronic pain; Z87.891 Personal history of nicotine dependence; Z86.11 Personal history of tuberculosis; Z86.19 Personal history of other infectious and parasitic diseases; Z88.2 Allergy status to sulfonamides; Z91.014 Allergy to mammalian meats; Z91.013 Allergy to seafood
CPT/HCPCS: C9803-CS; U0003; U0005

== ENCOUNTER 2022-02-22 01:15 | Inpatient (IN) | payer OTHER ==
[2022-02-22 01:44] VITALS: BMI 27.1
[2022-02-22] MEDS ORDERED: P-EPHED 60MG/TRIPROLIDI 2.5MG TABLET PO PRN (02:24)
[2022-02-22] MEDS ORDERED: LOPERAMIDE HCL 2 MG CAPSULE PO PRN (02:24)
[2022-02-22] MEDS ORDERED: MAGNESIUM CITRATE 300 ML BOTTLE PO PRN (02:24)
[2022-02-22] MEDS ORDERED: BENZOCAINE/MENTHOL (CHLORASEPTIC ) LOZENGE MM PRN (02:24)
[2022-02-22] MEDS ORDERED: IBUPROFEN 600 MG TABLET (FP) PO PRN (02:24)
[2022-02-22] MEDS ORDERED: DICYCLOMINE HCL 10 MG CAPSULE PO PRN (02:24)
[2022-02-22] MEDS ORDERED: MAGNESIUM HYDROX 2400MG/30ML ORAL SUSPENSION 30 ML CUP PO PRN (02:24)
[2022-02-22] MEDS ORDERED: METHOCARBAMOL 500 MG TABLET PO PRN (02:24)
[2022-02-22] MEDS ORDERED: guaiFENesin 200 MG/10 ML 10 ML UNIT-DOSE CUPS PO PRN (02:24)
[2022-02-22] MEDS ORDERED: ACETAMINOPHEN 325 MG TABLET (FP) PO PRN ×2 (02:24)
[2022-02-22] MEDS ORDERED: NALOXONE HCL (KLOXXADO) 8 MG SPRAY NS PRN (02:24)
[2022-02-22] MEDS ORDERED: hydrOXYzine PAMOATE 25 MG CAPSULE (FP) PO PRN (02:24)
[2022-02-22] MEDS ORDERED: IBUPROFEN 400 MG TABLET (FP) PO PRN (02:24)
[2022-02-22] MEDS ORDERED: NICOTINE POLACRILEX 2 MG GUM BUC PRN (02:24)
[2022-02-22] MEDS ORDERED: BISMUTH SUBSALICYLATE 524 MG/30 ML PO PRN (02:24)
[2022-02-22] MEDS ORDERED: MAG HYDROX/AL HYDROX/SIMETH 30 ML UNIT-DOSE CUP PO PRN (02:24)
[2022-02-22] MEDS ORDERED: ONDANSETRON *ODT* 4 MG TABLET SL PRN (02:24)
[2022-02-22] MEDS: NICOTINE 14 MG/24 HOURS TOPICAL PATCH TD SCH (11:36)
[2022-02-22] MEDS: PRENATAL VITAMINS W/ FOLIC ACID TABLET (FP) PO SCH (11:36)
[2022-02-22 17:29] VITALS: RESP 18
[2022-02-22] MEDS ORDERED: MELATONIN 5 MG TABLETS PO SCH (22:00)
[2022-02-22] MEDS ORDERED: THIAMINE HCL 100 MG TABLET (FP) PO SCH (22:00)
[2022-02-23 06:16] VITALS: BP 103/63; PULSE 71; TEMP 98.3
[2022-02-23] MEDS: PRENATAL VITAMINS W/ FOLIC ACID TABLET (FP) PO SCH (10:36)
[2022-02-23] MEDS: NICOTINE 14 MG/24 HOURS TOPICAL PATCH TD SCH (10:36)
== END 2022-02-23 10:25 | disposition left against medical advice (07) | DRG 770 ==
LOC: YASAS 01:15 → UNDOADMIN 09:53 → Y3N 09:53 → UNDODISIN 02-23 10:25
PROVIDERS: ADMIT Allergy & Immunology; ATTEND Surgery
PROC: HZ2ZZZZ Detoxification Services for Substance Abuse Treatment (ICD-10-PCS; principal; 2022-02-22)
DX: F10.230 Alcohol dependence with withdrawal, uncomplicated (principal); F14.20 Cocaine dependence, uncomplicated; F12.20 Cannabis dependence, uncomplicated; F17.210 Nicotine dependence, cigarettes, uncomplicated; F31.9 Bipolar disorder, unspecified; M54.50 Low back pain, unspecified; G89.29 Other chronic pain; Z86.11 Personal history of tuberculosis; Z88.0 Allergy status to penicillin; Z91.013 Allergy to seafood; Z91.014 Allergy to mammalian meats
CPT/HCPCS: 87811

== ENCOUNTER 2022-03-31 21:16 | Inpatient (IN) | payer OTHER ==
[2022-03-31 22:24] VITALS: BMI 24.5
[2022-03-31] MEDS ORDERED: MAGNESIUM CITRATE 300 ML BOTTLE PO PRN (22:36)
[2022-03-31] MEDS ORDERED: hydrOXYzine PAMOATE 25 MG CAPSULE (FP) PO PRN (22:36)
[2022-03-31] MEDS ORDERED: MAG HYDROX/AL HYDROX/SIMETH 30 ML UNIT-DOSE CUP PO PRN (22:36)
[2022-03-31] MEDS ORDERED: guaiFENesin 200 MG/10 ML 10 ML UNIT-DOSE CUPS PO PRN (22:36)
[2022-03-31] MEDS ORDERED: IBUPROFEN 400 MG TABLET (FP) PO PRN (22:36)
[2022-03-31] MEDS ORDERED: LOPERAMIDE HCL 2 MG CAPSULE PO PRN (22:36)
[2022-03-31] MEDS ORDERED: ACETAMINOPHEN 325 MG TABLET (FP) PO PRN (22:36)
[2022-03-31] MEDS ORDERED: P-EPHED 60MG/TRIPROLIDI 2.5MG TABLET PO PRN (22:36)
[2022-03-31] MEDS ORDERED: MAGNESIUM HYDROX 2400MG/30ML ORAL SUSPENSION 30 ML CUP PO PRN (22:36)
[2022-03-31] MEDS ORDERED: MELATONIN 5 MG TABLETS PO PRN (22:36)
[2022-04-01 10:21] VITALS: PULSE 80
[2022-04-01 13:28] VITALS: RESP 18
[2022-04-01] MEDS: PRENATAL VITAMINS W/ FOLIC ACID TABLET (FP) PO SCH (13:53)
[2022-04-01] MEDS: THIAMINE HCL 100 MG TABLET (FP) PO SCH (22:08)
[2022-04-02 07:01] VITALS: BP 128/79; TEMP 97.8
[2022-04-02] MEDS: PRENATAL VITAMINS W/ FOLIC ACID TABLET (FP) PO SCH (10:59)
[2022-04-02] MEDS: THIAMINE HCL 100 MG TABLET (FP) PO SCH (22:41)
[2022-04-03] MEDS: PRENATAL VITAMINS W/ FOLIC ACID TABLET (FP) PO SCH (09:50)
== END 2022-04-03 09:55 | disposition left against medical advice (07) | DRG 770 ==
LOC: YASAS 21:16 → Y5N 04-01 12:35
PROVIDERS: ADMIT Allergy & Immunology; ATTEND Psychiatry & Neurology Pain Medicine
PROC: HZ42ZZZ Group Counseling for Substance Abuse Treatment, Cognitive-Behavioral (ICD-10-PCS; principal; 2022-04-01)
DX: F14.20 Cocaine dependence, uncomplicated (principal); F12.20 Cannabis dependence, uncomplicated; F10.10 Alcohol abuse, uncomplicated; F31.9 Bipolar disorder, unspecified; M25.561 Pain in right knee; M54.50 Low back pain, unspecified; G89.29 Other chronic pain; Z87.891 Personal history of nicotine dependence; Z86.11 Personal history of tuberculosis; Z86.19 Personal history of other infectious and parasitic diseases; Z88.0 Allergy status to penicillin; Z91.013 Allergy to seafood
CPT/HCPCS: C9803-CS; U0003; U0005

== ENCOUNTER 2022-05-16 17:20 | Inpatient (IN) | payer MEDICARE, OTHER ==
[2022-05-16 18:25] VITALS: BMI 26.4
[2022-05-16] MEDS ORDERED: hydrOXYzine PAMOATE 25 MG CAPSULE (FP) PO PRN (19:39)
[2022-05-16] MEDS ORDERED: IBUPROFEN 400 MG TABLET (FP) PO PRN (19:39)
[2022-05-16] MEDS ORDERED: LOPERAMIDE HCL 2 MG CAPSULE PO PRN (19:39)
[2022-05-16] MEDS ORDERED: METHOCARBAMOL 500 MG TABLET PO PRN (19:39)
[2022-05-16] MEDS ORDERED: ACETAMINOPHEN 325 MG TABLET (FP) PO PRN ×2 (19:39)
[2022-05-16] MEDS ORDERED: MAG HYDROX/AL HYDROX/SIMETH 30 ML UNIT-DOSE CUP PO PRN (19:39)
[2022-05-16] MEDS ORDERED: IBUPROFEN 600 MG TABLET (FP) PO PRN (19:39)
[2022-05-16] MEDS ORDERED: NICOTINE POLACRILEX 2 MG GUM BUC PRN (19:39)
[2022-05-16] MEDS ORDERED: ONDANSETRON *ODT* 4 MG TABLET SL PRN (19:39)
[2022-05-16] MEDS ORDERED: DICYCLOMINE HCL 10 MG CAPSULE PO PRN (19:39)
[2022-05-16] MEDS ORDERED: MAGNESIUM HYDROX 2400MG/30ML ORAL SUSPENSION 30 ML CUP PO PRN (19:39)
[2022-05-16] MEDS ORDERED: NALOXONE HCL (KLOXXADO) 8 MG SPRAY NS PRN (19:39)
[2022-05-16] MEDS ORDERED: BISMUTH SUBSALICYLATE 524 MG/30 ML PO PRN (19:39)
[2022-05-16] MEDS ORDERED: POLYETHYLENE GLYCOL (HEALTHYLAX) 3350 17 GM PACKET PO PRN (19:39)
[2022-05-16] MEDS ORDERED: BENZOCAINE/MENTHOL (CHLORASEPTIC ) LOZENGE MM PRN (19:39)
[2022-05-16] MEDS: THIAMINE HCL 100 MG TABLET (FP) PO SCH (22:23)
[2022-05-16] MEDS: MELATONIN 5 MG TABLETS PO SCH (22:23)
[2022-05-17 09:52] LABS: HEMATOCRIT 40.5 % (35.4-49); HEMOGLOBIN 13.1 GM/dL (11.7-16.9); MCH 27.6 pg (25.7-33.7); MCHC 32.4 g/dl (32.0-35.9); MEAN CELL VOLUME 85.2 fl (80-96); MEAN PLT VOLUME 9.2 fl (7.5-11.1); PLATELET COUNT 258 10^3/uL (134-434); RBC 4.76 M/mm3 (4.00-5.60); RDW 14.1 % (11.9-15.9); WHITE BLOOD COUNT 9.6 K/mm3 (4.0-10.0)
[2022-05-17] MEDS ORDERED: NICOTINE 14 MG/24 HOURS TOPICAL PATCH TD SCH (10:00)
[2022-05-17 10:08] LABS: ALBUMIN 3.3 g/dl (3.4-5.0); BLOOD UREA NITROGEN 10.5 mg/dL (7-18)
[2022-05-17 10:11] LABS: CREATININE 1.1 mg/dL (0.55-1.3)
[2022-05-17 10:13] LABS: TOT PROT 6.8 g/dl (6.4-8.2)
[2022-05-17] MEDS: PRENATAL VITAMINS W/ FOLIC ACID TABLET (FP) PO SCH (10:41)
[2022-05-17] MEDS: MELATONIN 5 MG TABLETS PO SCH (22:53)
[2022-05-17] MEDS: THIAMINE HCL 100 MG TABLET (FP) PO SCH (22:53)
[2022-05-18] MEDS: PRENATAL VITAMINS W/ FOLIC ACID TABLET (FP) PO SCH (11:39)
[2022-05-18 20:34] LABS: PH,URINE 5.5 (5.0-8.0); URINE APPEARANCE CLEAR; URINE BILIRUBIN NEGATIVE (NEGATIVE); URINE COLOR DK YELLOW; URINE GLUCOSE (UA) NEGATIVE (NEGATIVE); URINE KETONE TRACE (NEGATIVE); URINE LEUK ESTERASE NEGATIVE (NEGATIVE); URINE NITRITE NEGATIVE (NEGATIVE); URINE PROTEIN TRACE (NEGATIVE)
[2022-05-18] MEDS: MELATONIN 5 MG TABLETS PO SCH (22:44)
[2022-05-18] MEDS: THIAMINE HCL 100 MG TABLET (FP) PO SCH (22:45)
[2022-05-19 06:36] VITALS: RESP 18
[2022-05-19 09:06] VITALS: BP 155/62; PULSE 92; TEMP 96.9
== END 2022-05-19 11:27 | disposition home or self-care (01) | DRG 897 ==
LOC: YASAS 17:20 → Y6N 22:26
PROVIDERS: ADMIT Allergy & Immunology; ATTEND Allergy & Immunology
PROC: HZ2ZZZZ Detoxification Services for Substance Abuse Treatment (ICD-10-PCS; principal; 2022-05-16)
DX: F10.230 Alcohol dependence with withdrawal, uncomplicated (principal); F14.20 Cocaine dependence, uncomplicated; F12.20 Cannabis dependence, uncomplicated; F17.210 Nicotine dependence, cigarettes, uncomplicated; F31.9 Bipolar disorder, unspecified; F19.24 Other psychoactive substance dependence with psychoactive substance-induced mood disorder; F39 Unspecified mood [affective] disorder; M25.561 Pain in right knee; M54.50 Low back pain, unspecified; G89.29 Other chronic pain; Z86.11 Personal history of tuberculosis; Z86.19 Personal history of other infectious and parasitic diseases; Z88.0 Allergy status to penicillin; Z91.013 Allergy to seafood; Z56.0 Unemployment, unspecified; Z59.00 Homelessness unspecified
CPT/HCPCS: 36415; 80053; 81003; 85027; 86593; 86780; C9803-CS; U0003; U0005

== ENCOUNTER 2022-06-06 19:30 | Inpatient (IN) | payer MEDICARE, OTHER ==
[2022-06-06 21:05] VITALS: BMI 27.3
[2022-06-06] MEDS ORDERED: POLYETHYLENE GLYCOL (HEALTHYLAX) 3350 17 GM PACKET PO PRN (23:35)
[2022-06-06] MEDS ORDERED: guaiFENesin 200 MG/10 ML 10 ML UNIT-DOSE CUPS PO PRN (23:35)
[2022-06-06] MEDS ORDERED: MAGNESIUM HYDROX 2400MG/30ML ORAL SUSPENSION 30 ML CUP PO PRN (23:35)
[2022-06-06] MEDS ORDERED: NICOTINE 10 MG CARTRIDGE (INHALER) IH PRN (23:35)
[2022-06-06] MEDS ORDERED: IBUPROFEN 400 MG TABLET (FP) PO PRN (23:35)
[2022-06-06] MEDS ORDERED: hydrOXYzine PAMOATE 25 MG CAPSULE (FP) PO PRN (23:35)
[2022-06-06] MEDS ORDERED: LOPERAMIDE HCL 2 MG CAPSULE PO PRN (23:35)
[2022-06-06] MEDS ORDERED: ACETAMINOPHEN 325 MG TABLET (FP) PO PRN (23:35)
[2022-06-06] MEDS ORDERED: P-EPHED 60MG/TRIPROLIDI 2.5MG TABLET PO PRN (23:35)
[2022-06-06] MEDS ORDERED: MAG HYDROX/AL HYDROX/SIMETH 30 ML UNIT-DOSE CUP PO PRN (23:35)
[2022-06-06] MEDS ORDERED: BENZOCAINE/MENTHOL (CHLORASEPTIC ) LOZENGE MM PRN (23:35)
[2022-06-07] MEDS: MELATONIN 5 MG TABLETS PO SCH ×2 (07:22→21:58)
[2022-06-07 08:49] LABS: HEMATOCRIT 37.5 % (35.4-49); HEMOGLOBIN 11.7 GM/dL (11.7-16.9); MCH 26.7 pg (25.7-33.7); MCHC 31.2 g/dl (32.0-35.9); MEAN CELL VOLUME 85.7 fl (80-96); MEAN PLT VOLUME 8.4 fl (7.5-11.1); PLATELET COUNT 255 10^3/uL (134-434); RBC 4.38 M/mm3 (4.00-5.60); RDW 14.6 % (11.9-15.9); WHITE BLOOD COUNT 6.3 K/mm3 (4.0-10.0)
[2022-06-07 08:58] LABS: BLOOD UREA NITROGEN 15.9 mg/dL (7-18); CALCIUM 8.4 mg/dL (8.5-10.1)
[2022-06-07 09:02] LABS: CREATININE 1.3 mg/dL (0.55-1.3)
[2022-06-07 09:03] LABS: BILIRUBIN,TOTAL 0.4 mg/dL (0.2-1); TOT PROT 6.4 g/dl (6.4-8.2)
[2022-06-07] MEDS: NICOTINE 7 MG/24 HOURS TOPICAL PATCH TD SCH (10:02)
[2022-06-07] MEDS: PRENATAL VITAMINS W/ FOLIC ACID TABLET (FP) PO SCH (10:02)
[2022-06-07 12:36] LABS: SYPHILIS W/ RPR CONF REACTIVE (NONREACTIVE)
[2022-06-07 15:14] LABS: PH,URINE 5.5 (5.0-8.0); URINE APPEARANCE CLEAR; URINE BILIRUBIN NEGATIVE (NEGATIVE); URINE COLOR YELLOW; URINE GLUCOSE (UA) NEGATIVE (NEGATIVE); URINE KETONE TRACE (NEGATIVE); URINE LEUK ESTERASE NEGATIVE (NEGATIVE); URINE NITRITE NEGATIVE (NEGATIVE); URINE PROTEIN TRACE (NEGATIVE)
[2022-06-07] MEDS: THIAMINE HCL 100 MG TABLET (FP) PO SCH (21:59)
[2022-06-08] MEDS: PRENATAL VITAMINS W/ FOLIC ACID TABLET (FP) PO SCH (09:52)
[2022-06-08] MEDS: NICOTINE 7 MG/24 HOURS TOPICAL PATCH TD SCH (09:52)
[2022-06-08] MEDS: THIAMINE HCL 100 MG TABLET (FP) PO SCH (21:41)
[2022-06-08] MEDS: MELATONIN 5 MG TABLETS PO SCH (21:41)
[2022-06-09] MEDS: NICOTINE 7 MG/24 HOURS TOPICAL PATCH TD SCH (09:46)
[2022-06-09] MEDS: PRENATAL VITAMINS W/ FOLIC ACID TABLET (FP) PO SCH (09:46)
[2022-06-09] MEDS: THIAMINE HCL 100 MG TABLET (FP) PO SCH (21:33)
[2022-06-09] MEDS: MELATONIN 5 MG TABLETS PO SCH (21:33)
[2022-06-10] MEDS: PRENATAL VITAMINS W/ FOLIC ACID TABLET (FP) PO SCH (10:10)
[2022-06-10] MEDS: NICOTINE 7 MG/24 HOURS TOPICAL PATCH TD SCH (10:11)
[2022-06-10] MEDS: MELATONIN 5 MG TABLETS PO SCH (22:00)
[2022-06-10] MEDS: THIAMINE HCL 100 MG TABLET (FP) PO SCH (22:00)
[2022-06-11] MEDS: PRENATAL VITAMINS W/ FOLIC ACID TABLET (FP) PO SCH (10:26)
[2022-06-11] MEDS: NICOTINE 7 MG/24 HOURS TOPICAL PATCH TD SCH (10:26)
[2022-06-11] MEDS: MELATONIN 5 MG TABLETS PO SCH (22:53)
[2022-06-11] MEDS: THIAMINE HCL 100 MG TABLET (FP) PO SCH (22:53)
[2022-06-12 07:13] VITALS: BP 132/76; PULSE 76; RESP 16; TEMP 97.2
[2022-06-12] MEDS: PRENATAL VITAMINS W/ FOLIC ACID TABLET (FP) PO SCH (09:10)
[2022-06-12] MEDS: NICOTINE 7 MG/24 HOURS TOPICAL PATCH TD SCH (09:11)
== END 2022-06-12 09:42 | disposition home or self-care (01) | DRG 895 ==
LOC: YASAS 19:30 → Y5N 06-07 01:16
PROVIDERS: ADMIT Allergy & Immunology; ATTEND Allergy & Immunology
PROC: HZ42ZZZ Group Counseling for Substance Abuse Treatment, Cognitive-Behavioral (ICD-10-PCS; principal; 2022-06-07)
DX: F10.20 Alcohol dependence, uncomplicated (principal); F14.20 Cocaine dependence, uncomplicated; F12.20 Cannabis dependence, uncomplicated; F31.9 Bipolar disorder, unspecified; G47.00 Insomnia, unspecified; M25.561 Pain in right knee; M54.50 Low back pain, unspecified; G89.29 Other chronic pain; Z87.891 Personal history of nicotine dependence; Z88.0 Allergy status to penicillin; Z91.013 Allergy to seafood; Z91.014 Allergy to mammalian meats
CPT/HCPCS: 36415; 80053; 81003; 85027; 86593; 86780; 86803; C9803-CS; U0003; U0005

== ENCOUNTER 2022-06-27 12:48 | Inpatient (IN) | payer MEDICARE, OTHER ==
[2022-06-27 17:08] VITALS: BMI 26.2
[2022-06-27] MEDS ORDERED: NALOXONE HCL (KLOXXADO) 8 MG SPRAY NS PRN (18:18)
[2022-06-27] MEDS ORDERED: hydrOXYzine PAMOATE 25 MG CAPSULE (FP) PO PRN (18:18)
[2022-06-27] MEDS ORDERED: DICYCLOMINE HCL 10 MG CAPSULE PO PRN (18:18)
[2022-06-27] MEDS ORDERED: METHOCARBAMOL 500 MG TABLET PO PRN (18:18)
[2022-06-27] MEDS ORDERED: ONDANSETRON *ODT* 4 MG TABLET SL PRN (18:18)
[2022-06-27] MEDS ORDERED: MAG HYDROX/AL HYDROX/SIMETH 30 ML UNIT-DOSE CUP PO PRN (18:18)
[2022-06-27] MEDS ORDERED: ACETAMINOPHEN 325 MG TABLET (FP) PO PRN ×2 (18:18)
[2022-06-27] MEDS ORDERED: BISMUTH SUBSALICYLATE 524 MG/30 ML PO PRN (18:18)
[2022-06-27] MEDS ORDERED: IBUPROFEN 400 MG TABLET (FP) PO PRN (18:18)
[2022-06-27] MEDS ORDERED: IBUPROFEN 600 MG TABLET (FP) PO PRN (18:18)
[2022-06-27] MEDS ORDERED: POLYETHYLENE GLYCOL (HEALTHYLAX) 3350 17 GM PACKET PO PRN (18:18)
[2022-06-27] MEDS ORDERED: LOPERAMIDE HCL 2 MG CAPSULE PO PRN (18:18)
[2022-06-27] MEDS ORDERED: BENZOCAINE/MENTHOL (CHLORASEPTIC ) LOZENGE MM PRN (18:18)
[2022-06-27] MEDS ORDERED: MAGNESIUM HYDROX 2400MG/30ML ORAL SUSPENSION 30 ML CUP PO PRN (18:18)
[2022-06-27] MEDS: MELATONIN 5 MG TABLETS PO SCH (23:57)
[2022-06-27] MEDS: THIAMINE HCL 100 MG TABLET (FP) PO SCH (23:58)
[2022-06-28] MEDS: PRENATAL VITAMINS W/ FOLIC ACID TABLET (FP) PO SCH (10:25)
[2022-06-28 11:56] LABS: HEMATOCRIT 41.9 % (35.4-49); HEMOGLOBIN 13.3 GM/dL (11.7-16.9); MCH 27.3 pg (25.7-33.7); MCHC 31.7 g/dl (32.0-35.9); MEAN CELL VOLUME 86.1 fl (80-96); MEAN PLT VOLUME 8.5 fl (7.5-11.1); PLATELET COUNT 254 10^3/uL (134-434); RBC 4.86 M/mm3 (4.00-5.60); RDW 15.4 % (11.9-15.9); WHITE BLOOD COUNT 7.1 K/mm3 (4.0-10.0)
[2022-06-28 12:07] LABS: ALBUMIN 3.8 g/dl (3.4-5.0); BLOOD UREA NITROGEN 18.5 mg/dL (7-18); CALCIUM 8.7 mg/dL (8.5-10.1)
[2022-06-28 12:10] LABS: CREATININE 1.4 mg/dL (0.55-1.3); TOT PROT 7.4 g/dl (6.4-8.2)
[2022-06-28 12:11] LABS: BILIRUBIN,TOTAL 0.5 mg/dL (0.2-1)
[2022-06-28] MEDS: MELATONIN 5 MG TABLETS PO SCH (22:47)
[2022-06-28] MEDS: THIAMINE HCL 100 MG TABLET (FP) PO SCH (22:47)
[2022-06-29] MEDS: PRENATAL VITAMINS W/ FOLIC ACID TABLET (FP) PO SCH (10:22)
[2022-06-29 21:41] VITALS: RESP 18
[2022-06-29] MEDS: THIAMINE HCL 100 MG TABLET (FP) PO SCH (23:14)
[2022-06-29] MEDS: MELATONIN 5 MG TABLETS PO SCH (23:14)
[2022-06-30 09:26] VITALS: BP 120/83; PULSE 91; TEMP 98.4
== END 2022-06-30 09:35 | disposition home or self-care (01) | DRG 897 ==
LOC: YASAS 12:48 → Y6N 19:07
PROVIDERS: ADMIT Allergy & Immunology; ATTEND Family Medicine
PROC: HZ2ZZZZ Detoxification Services for Substance Abuse Treatment (ICD-10-PCS; principal; 2022-06-27)
DX: F10.230 Alcohol dependence with withdrawal, uncomplicated (principal); F14.20 Cocaine dependence, uncomplicated; F12.20 Cannabis dependence, uncomplicated; M54.50 Low back pain, unspecified; G89.29 Other chronic pain; Z87.891 Personal history of nicotine dependence; Z86.11 Personal history of tuberculosis; Z86.19 Personal history of other infectious and parasitic diseases; Z59.02 Unsheltered homelessness
CPT/HCPCS: 36415; 80053; 85027; 86593; 86780; 87811; C9803-CS; U0003; U0005

== ENCOUNTER 2022-07-14 10:17 | Inpatient (IN) | payer OTHER ==
[2022-07-14 11:35] VITALS: BMI 25.7
[2022-07-14] MEDS ORDERED: LOPERAMIDE HCL 2 MG CAPSULE PO PRN (11:49)
[2022-07-14] MEDS ORDERED: guaiFENesin 200 MG/10 ML 10 ML UNIT-DOSE CUPS PO PRN (11:49)
[2022-07-14] MEDS ORDERED: BENZOCAINE/MENTHOL (CHLORASEPTIC ) LOZENGE MM PRN (11:49)
[2022-07-14] MEDS ORDERED: hydrOXYzine PAMOATE 25 MG CAPSULE (FP) PO PRN (11:49)
[2022-07-14] MEDS ORDERED: MAG HYDROX/AL HYDROX/SIMETH 30 ML UNIT-DOSE CUP PO PRN (11:49)
[2022-07-14] MEDS ORDERED: MAGNESIUM HYDROX 2400MG/30ML ORAL SUSPENSION 30 ML CUP PO PRN (11:49)
[2022-07-14] MEDS ORDERED: IBUPROFEN 400 MG TABLET (FP) PO PRN (11:49)
[2022-07-14] MEDS ORDERED: ACETAMINOPHEN 325 MG TABLET (FP) PO PRN (11:49)
[2022-07-14] MEDS ORDERED: P-EPHED 60MG/TRIPROLIDI 2.5MG TABLET PO PRN (11:49)
[2022-07-14] MEDS ORDERED: POLYETHYLENE GLYCOL (HEALTHYLAX) 3350 17 GM PACKET PO PRN (11:49)
[2022-07-14] MEDS: PRENATAL VITAMINS W/ FOLIC ACID TABLET (FP) PO SCH (13:00)
[2022-07-14 19:03] LABS: HEMATOCRIT 38.8 % (35.4-49); HEMOGLOBIN 12.5 GM/dL (11.7-16.9); MCHC 32.3 g/dl (32.0-35.9); MEAN CELL VOLUME 86.5 fl (80-96); MEAN PLT VOLUME 8.8 fl (7.5-11.1); PLATELET COUNT 278 10^3/uL (134-434); RBC 4.49 M/mm3 (4.00-5.60); RDW 15.3 % (11.9-15.9); WHITE BLOOD COUNT 7.1 K/mm3 (4.0-10.0)
[2022-07-14 19:21] LABS: ALBUMIN 3.9 g/dl (3.4-5.0); BLOOD UREA NITROGEN 17.9 mg/dL (7-18); CALCIUM 9.1 mg/dL (8.5-10.1)
[2022-07-14 19:24] LABS: CREATININE 1.2 mg/dL (0.55-1.3)
[2022-07-14 19:26] LABS: BILIRUBIN,TOTAL 0.4 mg/dL (0.2-1)
[2022-07-14 19:27] LABS: TOT PROT 7.4 g/dl (6.4-8.2)
[2022-07-14 20:06] LABS: SYPHILIS W/ RPR CONF REACTIVE (NONREACTIVE)
[2022-07-14] MEDS: THIAMINE HCL 100 MG TABLET (FP) PO SCH (23:35)
[2022-07-14] MEDS: MELATONIN 5 MG TABLETS PO SCH (23:35)
[2022-07-15] MEDS ORDERED: LORazepam 1 MG TABLET PO PRN (10:02)
[2022-07-15] MEDS: PRENATAL VITAMINS W/ FOLIC ACID TABLET (FP) PO SCH (10:19)
[2022-07-15] MEDS: LORazepam 2 MG TABLET PO SCH ×3 (10:19→22:31)
[2022-07-15] MEDS: THIAMINE HCL 100 MG TABLET (FP) PO SCH (22:31)
[2022-07-15] MEDS: MELATONIN 5 MG TABLETS PO SCH (22:32)
[2022-07-16] MEDS: LORazepam 2 MG TABLET PO SCH ×4 (05:54→22:39)
[2022-07-16] MEDS: PRENATAL VITAMINS W/ FOLIC ACID TABLET (FP) PO SCH (10:11)
[2022-07-16] MEDS: MELATONIN 5 MG TABLETS PO SCH (22:40)
[2022-07-16] MEDS: THIAMINE HCL 100 MG TABLET (FP) PO SCH (22:41)
[2022-07-17] MEDS: LORazepam 1 MG TABLET PO SCH ×2 (06:12→10:20)
[2022-07-17 09:17] VITALS: BP 139/88; PULSE 96; RESP 16; TEMP 98.7
[2022-07-17] MEDS: PRENATAL VITAMINS W/ FOLIC ACID TABLET (FP) PO SCH (10:20)
[2022-07-18] MEDS ORDERED: LORazepam 0.5 MG TABLET PO PRN
[2022-07-18] MEDS ORDERED: LORazepam 0.5 MG TABLET PO SCH (05:00)
[2022-07-19] MEDS ORDERED: LORazepam 0.5 MG TABLET PO ONE (05:00)
== END 2022-07-17 10:50 | disposition home or self-care (01) | DRG 897 ==
LOC: YASAS 10:17 → Y6N 14:33
PROVIDERS: ADMIT Allergy & Immunology; ATTEND Surgery
PROC: HZ2ZZZZ Detoxification Services for Substance Abuse Treatment (ICD-10-PCS; principal; 2022-07-14)
DX: F10.230 Alcohol dependence with withdrawal, uncomplicated (principal); F14.20 Cocaine dependence, uncomplicated; F12.20 Cannabis dependence, uncomplicated; F17.210 Nicotine dependence, cigarettes, uncomplicated; F31.9 Bipolar disorder, unspecified; Z87.891 Personal history of nicotine dependence; Z86.11 Personal history of tuberculosis; Z86.19 Personal history of other infectious and parasitic diseases; Z88.0 Allergy status to penicillin; Z91.013 Allergy to seafood; Z91.014 Allergy to mammalian meats
CPT/HCPCS: 36415; 80053; 85027; 86593; 86780; 86803; 87811; C9803-CS; U0003; U0005

== ENCOUNTER 2022-07-25 21:40 | Inpatient (IN) | payer OTHER ==
[2022-07-25 22:35] VITALS: BMI 27.3
[2022-07-25] MEDS ORDERED: IBUPROFEN 400 MG TABLET (FP) PO PRN (23:09)
[2022-07-25] MEDS ORDERED: ONDANSETRON *ODT* 4 MG TABLET SL PRN (23:09)
[2022-07-25] MEDS ORDERED: BENZOCAINE/MENTHOL (CHLORASEPTIC ) LOZENGE MM PRN (23:09)
[2022-07-25] MEDS ORDERED: hydrOXYzine PAMOATE 25 MG CAPSULE (FP) PO PRN (23:09)
[2022-07-25] MEDS ORDERED: DICYCLOMINE HCL 10 MG CAPSULE PO PRN (23:09)
[2022-07-25] MEDS ORDERED: LOPERAMIDE HCL 2 MG CAPSULE PO PRN (23:09)
[2022-07-25] MEDS ORDERED: POLYETHYLENE GLYCOL (HEALTHYLAX) 3350 17 GM PACKET PO PRN (23:09)
[2022-07-25] MEDS ORDERED: ACETAMINOPHEN 325 MG TABLET (FP) PO PRN ×2 (23:09)
[2022-07-25] MEDS ORDERED: NALOXONE HCL (KLOXXADO) 8 MG SPRAY NS PRN (23:09)
[2022-07-25] MEDS ORDERED: BISMUTH SUBSALICYLATE 524 MG/30 ML PO PRN (23:09)
[2022-07-25] MEDS ORDERED: MAG HYDROX/AL HYDROX/SIMETH 30 ML UNIT-DOSE CUP PO PRN (23:09)
[2022-07-25] MEDS ORDERED: METHOCARBAMOL 500 MG TABLET PO PRN (23:09)
[2022-07-25] MEDS ORDERED: MAGNESIUM HYDROX 2400MG/30ML ORAL SUSPENSION 30 ML CUP PO PRN (23:09)
[2022-07-25] MEDS ORDERED: IBUPROFEN 600 MG TABLET (FP) PO PRN (23:09)
[2022-07-26] MEDS ORDERED: PRENATAL VITAMINS W/ FOLIC ACID TABLET (FP) PO SCH (10:00)
[2022-07-26] MEDS ORDERED: MELATONIN 5 MG TABLETS PO SCH (22:00)
[2022-07-26] MEDS ORDERED: THIAMINE HCL 100 MG TABLET (FP) PO SCH (22:00)
[2022-07-27 06:17] VITALS: BP 120/79; PULSE 78; RESP 16; TEMP 97.3
== END 2022-07-27 09:14 | disposition home or self-care (01) | DRG 897 ==
LOC: YASAS 21:40 → Y3N 23:04
PROVIDERS: ADMIT Allergy & Immunology; ATTEND Surgery
PROC: HZ2ZZZZ Detoxification Services for Substance Abuse Treatment (ICD-10-PCS; principal; 2022-07-25)
DX: F10.230 Alcohol dependence with withdrawal, uncomplicated (principal); F14.20 Cocaine dependence, uncomplicated; F12.20 Cannabis dependence, uncomplicated; F31.9 Bipolar disorder, unspecified; M54.50 Low back pain, unspecified; G89.29 Other chronic pain; Z87.891 Personal history of nicotine dependence; Z86.11 Personal history of tuberculosis; Z88.0 Allergy status to penicillin; Z91.013 Allergy to seafood; Z91.014 Allergy to mammalian meats
CPT/HCPCS: 87811; C9803-CS; U0003; U0005

== ENCOUNTER 2022-08-26 23:32 | Inpatient (IN) | payer OTHER ==
[2022-08-27 00:02] VITALS: BMI 26.4
[2022-08-27] MEDS ORDERED: NALOXONE HCL 0.4 MG/ML VIAL IM PRN (01:38)
[2022-08-27] MEDS ORDERED: BISMUTH SUBSALICYLATE 524 MG/30 ML PO PRN (01:38)
[2022-08-27] MEDS ORDERED: MAG HYDROX/AL HYDROX/SIMETH 30 ML UNIT-DOSE CUP PO PRN (01:38)
[2022-08-27] MEDS ORDERED: hydrOXYzine PAMOATE 25 MG CAPSULE (FP) PO PRN (01:38)
[2022-08-27] MEDS ORDERED: ACETAMINOPHEN 325 MG TABLET (FP) PO PRN (01:38)
[2022-08-27] MEDS ORDERED: IBUPROFEN 600 MG TABLET (FP) PO PRN (01:38)
[2022-08-27] MEDS ORDERED: NALOXONE HCL (KLOXXADO) 8 MG SPRAY NS PRN (01:38)
[2022-08-27] MEDS ORDERED: ONDANSETRON *ODT* 4 MG TABLET SL PRN (01:38)
[2022-08-27] MEDS ORDERED: LOPERAMIDE HCL 2 MG CAPSULE PO PRN (01:38)
[2022-08-27] MEDS ORDERED: IBUPROFEN 400 MG TABLET (FP) PO PRN (01:38)
[2022-08-27] MEDS ORDERED: MAGNESIUM HYDROX 2400MG/30ML ORAL SUSPENSION 30 ML CUP PO PRN (01:38)
[2022-08-27] MEDS ORDERED: POLYETHYLENE GLYCOL (HEALTHYLAX) 3350 17 GM PACKET PO PRN (01:38)
[2022-08-27] MEDS ORDERED: DICYCLOMINE HCL 10 MG CAPSULE PO PRN (01:38)
[2022-08-27] MEDS ORDERED: BENZONATATE 200 MG CAPSULE PO PRN (01:38)
[2022-08-27] MEDS ORDERED: BENZOCAINE/MENTHOL (CHLORASEPTIC ) LOZENGE MM PRN (01:38)
[2022-08-27] MEDS ORDERED: guaiFENesin 600 MG TABLET.ER (FP) PO PRN (01:38)
[2022-08-27] MEDS: PRENATAL VITAMINS W/ FOLIC ACID TABLET (FP) PO SCH ×2 (11:02→11:18)
[2022-08-27 18:48] LABS: HEMATOCRIT 40.6 % (35.4-49); HEMOGLOBIN 13.2 GM/dL (11.7-16.9); MCH 27.4 pg (25.7-33.7); MCHC 32.5 g/dl (32.0-35.9); MEAN CELL VOLUME 84.4 fl (80-96); MEAN PLT VOLUME 8.8 fl (7.5-11.1); PLATELET COUNT 273 10^3/uL (134-434); RBC 4.81 M/mm3 (4.00-5.60); RDW 14.7 % (11.9-15.9)
[2022-08-27 19:04] LABS: ALBUMIN 3.8 g/dl (3.4-5.0); CALCIUM 9.1 mg/dL (8.5-10.1)
[2022-08-27 19:05] LABS: BLOOD UREA NITROGEN 17.7 mg/dL (7-18)
[2022-08-27 19:08] LABS: BILIRUBIN,TOTAL 0.5 mg/dL (0.2-1); CREATININE 1.3 mg/dL (0.55-1.3); TOT PROT 7.2 g/dl (6.4-8.2)
[2022-08-28] MEDS: MELATONIN 5 MG TABLETS PO SCH ×2 (00:15→22:01)
[2022-08-28] MEDS: THIAMINE HCL 100 MG TABLET (FP) PO SCH ×2 (00:15→22:01)
[2022-08-28] MEDS: PRENATAL VITAMINS W/ FOLIC ACID TABLET (FP) PO SCH (10:31)
[2022-08-28 21:28] VITALS: RESP 16
[2022-08-29 06:30] VITALS: BP 103/68; PULSE 78; TEMP 98.9
[2022-08-29] MEDS: PRENATAL VITAMINS W/ FOLIC ACID TABLET (FP) PO SCH (11:24)
== END 2022-08-29 10:39 | disposition home or self-care (01) | DRG 897 ==
LOC: YASAS 23:32 → UNDOADMIN 08-27 07:31 → Y6N 08-27 07:31
PROVIDERS: ADMIT Allergy & Immunology; ATTEND Surgery
PROC: HZ2ZZZZ Detoxification Services for Substance Abuse Treatment (ICD-10-PCS; principal; 2022-08-27)
DX: F19.230 Other psychoactive substance dependence with withdrawal, uncomplicated (principal); F14.20 Cocaine dependence, uncomplicated; F10.230 Alcohol dependence with withdrawal, uncomplicated; F12.20 Cannabis dependence, uncomplicated; M54.50 Low back pain, unspecified; G89.29 Other chronic pain; Z87.891 Personal history of nicotine dependence; Z86.11 Personal history of tuberculosis; Z86.19 Personal history of other infectious and parasitic diseases; Z88.0 Allergy status to penicillin; Z91.018 Allergy to other foods
CPT/HCPCS: 36415; 80053; 85027; 86593; 86780; C9803-CS; U0003; U0005

== ENCOUNTER 2022-09-15 23:31 | Inpatient (IN) | payer OTHER ==
[2022-09-16 00:08] VITALS: BMI 26.4
[2022-09-16] MEDS ORDERED: BENZONATATE 200 MG CAPSULE PO PRN (00:23)
[2022-09-16] MEDS ORDERED: guaiFENesin 600 MG TABLET.ER (FP) PO PRN (00:23)
[2022-09-16] MEDS ORDERED: MAG HYDROX/AL HYDROX/SIMETH 30 ML UNIT-DOSE CUP PO PRN (00:23)
[2022-09-16] MEDS ORDERED: POLYETHYLENE GLYCOL (HEALTHYLAX) 3350 17 GM PACKET PO PRN (00:23)
[2022-09-16] MEDS ORDERED: NALOXONE HCL 0.4 MG/ML VIAL IM PRN (00:23)
[2022-09-16] MEDS ORDERED: NALOXONE HCL (KLOXXADO) 8 MG SPRAY NS PRN (00:23)
[2022-09-16] MEDS ORDERED: IBUPROFEN 400 MG TABLET (FP) PO PRN (00:23)
[2022-09-16] MEDS ORDERED: BENZOCAINE/MENTHOL (CHLORASEPTIC ) LOZENGE MM PRN (00:23)
[2022-09-16] MEDS ORDERED: MAGNESIUM HYDROX 2400MG/30ML ORAL SUSPENSION 30 ML CUP PO PRN (00:23)
[2022-09-16] MEDS ORDERED: BISMUTH SUBSALICYLATE 524 MG/30 ML PO PRN (00:23)
[2022-09-16] MEDS ORDERED: DICYCLOMINE HCL 10 MG CAPSULE PO PRN (00:23)
[2022-09-16] MEDS ORDERED: hydrOXYzine PAMOATE 25 MG CAPSULE (FP) PO PRN (00:23)
[2022-09-16] MEDS ORDERED: IBUPROFEN 600 MG TABLET (FP) PO PRN (00:23)
[2022-09-16] MEDS ORDERED: LOPERAMIDE HCL 2 MG CAPSULE PO PRN (00:23)
[2022-09-16] MEDS ORDERED: ACETAMINOPHEN 325 MG TABLET (FP) PO PRN (00:23)
[2022-09-16] MEDS ORDERED: ONDANSETRON *ODT* 4 MG TABLET SL PRN (00:23)
[2022-09-16] MEDS: PRENATAL VITAMINS W/ FOLIC ACID TABLET (FP) PO SCH ×2 (10:25→10:29)
[2022-09-16 11:46] LABS: HEMATOCRIT 37.5 % (35.4-49); HEMOGLOBIN 12.6 GM/dL (11.7-16.9); MCH 28.2 pg (25.7-33.7); MCHC 33.5 g/dl (32.0-35.9); MEAN CELL VOLUME 84.1 fl (80-96); PLATELET COUNT 269 10^3/uL (134-434); RBC 4.46 M/mm3 (4.00-5.60); RDW 14.1 % (11.9-15.9); WHITE BLOOD COUNT 4.5 K/mm3 (4.0-10.0)
[2022-09-16 11:57] LABS: BLOOD UREA NITROGEN 23.9 mg/dL (7-18); CALCIUM 8.8 mg/dL (8.5-10.1)
[2022-09-16 11:58] LABS: ALBUMIN 3.4 g/dl (3.4-5.0)
[2022-09-16 12:01] LABS: CREATININE 1.4 mg/dL (0.55-1.3)
[2022-09-16 12:02] LABS: BILIRUBIN,TOTAL 0.6 mg/dL (0.2-1); TOT PROT 6.8 g/dl (6.4-8.2)
[2022-09-16] MEDS: MELATONIN 5 MG TABLETS PO SCH (22:38)
[2022-09-16] MEDS: THIAMINE HCL 100 MG TABLET (FP) PO SCH (22:38)
[2022-09-17] MEDS: PRENATAL VITAMINS W/ FOLIC ACID TABLET (FP) PO SCH (10:32)
[2022-09-17] MEDS: THIAMINE HCL 100 MG TABLET (FP) PO SCH (21:55)
[2022-09-17] MEDS: MELATONIN 5 MG TABLETS PO SCH (21:55)
[2022-09-18] MEDS: PRENATAL VITAMINS W/ FOLIC ACID TABLET (FP) PO SCH (10:50)
[2022-09-18] MEDS: THIAMINE HCL 100 MG TABLET (FP) PO SCH (23:28)
[2022-09-18] MEDS: MELATONIN 5 MG TABLETS PO SCH (23:28)
[2022-09-19] MEDS: PRENATAL VITAMINS W/ FOLIC ACID TABLET (FP) PO SCH (10:18)
[2022-09-19] MEDS: MELATONIN 5 MG TABLETS PO SCH (23:27)
[2022-09-19] MEDS: THIAMINE HCL 100 MG TABLET (FP) PO SCH (23:27)
[2022-09-20] MEDS: PRENATAL VITAMINS W/ FOLIC ACID TABLET (FP) PO SCH (10:52)
[2022-09-20] MEDS: THIAMINE HCL 100 MG TABLET (FP) PO SCH (21:33)
[2022-09-20] MEDS: MELATONIN 5 MG TABLETS PO SCH (21:33)
[2022-09-21] MEDS: PRENATAL VITAMINS W/ FOLIC ACID TABLET (FP) PO SCH (10:42)
[2022-09-21] MEDS: THIAMINE HCL 100 MG TABLET (FP) PO SCH (21:40)
[2022-09-21] MEDS: MELATONIN 5 MG TABLETS PO SCH (21:40)
[2022-09-22] MEDS: PRENATAL VITAMINS W/ FOLIC ACID TABLET (FP) PO SCH (10:55)
[2022-09-22] MEDS: THIAMINE HCL 100 MG TABLET (FP) PO SCH (22:27)
[2022-09-22] MEDS: MELATONIN 5 MG TABLETS PO SCH (22:27)
[2022-09-23 07:15] VITALS: RESP 18
[2022-09-23] MEDS: PRENATAL VITAMINS W/ FOLIC ACID TABLET (FP) PO SCH (10:21)
[2022-09-23] MEDS: THIAMINE HCL 100 MG TABLET (FP) PO SCH (21:32)
[2022-09-23] MEDS: MELATONIN 5 MG TABLETS PO SCH (21:32)
[2022-09-24] MEDS: PRENATAL VITAMINS W/ FOLIC ACID TABLET (FP) PO SCH (10:08)
[2022-09-24] MEDS: MELATONIN 5 MG TABLETS PO SCH (21:46)
[2022-09-24] MEDS: THIAMINE HCL 100 MG TABLET (FP) PO SCH (21:46)
[2022-09-25] MEDS: PRENATAL VITAMINS W/ FOLIC ACID TABLET (FP) PO SCH (10:16)
[2022-09-25] MEDS: THIAMINE HCL 100 MG TABLET (FP) PO SCH (22:40)
[2022-09-25] MEDS: MELATONIN 5 MG TABLETS PO SCH (22:40)
[2022-09-26] MEDS: PRENATAL VITAMINS W/ FOLIC ACID TABLET (FP) PO SCH (10:07)
[2022-09-26] MEDS: THIAMINE HCL 100 MG TABLET (FP) PO SCH (22:27)
[2022-09-26] MEDS: MELATONIN 5 MG TABLETS PO SCH (22:27)
[2022-09-27 07:30] VITALS: TEMP 97.6
[2022-09-27] MEDS: PRENATAL VITAMINS W/ FOLIC ACID TABLET (FP) PO SCH (10:08)
[2022-09-27] MEDS: THIAMINE HCL 100 MG TABLET (FP) PO SCH (22:03)
[2022-09-27] MEDS: MELATONIN 5 MG TABLETS PO SCH (22:03)
[2022-09-28 06:52] VITALS: BP 115/78; PULSE 87
[2022-09-28] MEDS: PRENATAL VITAMINS W/ FOLIC ACID TABLET (FP) PO SCH (09:55)
== END 2022-09-28 10:18 | disposition home or self-care (01) | DRG 895 ==
LOC: YASAS 23:31 → Y3N 09-16 02:17 → UNDOADMIN 09-16 02:17 → Y5N 09-17 15:49
PROVIDERS: ADMIT Allergy & Immunology; ATTEND Surgery
PROC: HZ42ZZZ Group Counseling for Substance Abuse Treatment, Cognitive-Behavioral (ICD-10-PCS; principal; 2022-09-16)
DX: F10.20 Alcohol dependence, uncomplicated (principal); F14.20 Cocaine dependence, uncomplicated; E87.0 Hyperosmolality and hypernatremia; F12.20 Cannabis dependence, uncomplicated; F39 Unspecified mood [affective] disorder; M25.561 Pain in right knee; M54.50 Low back pain, unspecified; G89.29 Other chronic pain; Z87.891 Personal history of nicotine dependence; Z86.11 Personal history of tuberculosis; Z86.59 Personal history of other mental and behavioral disorders; Z86.19 Personal history of other infectious and parasitic diseases; Z88.0 Allergy status to penicillin; Z91.014 Allergy to mammalian meats
CPT/HCPCS: 36415; 80053; 85027; 86593; 86780; C9803-CS; U0003; U0005

== ENCOUNTER 2022-10-12 19:46 | Inpatient (IN) | payer OTHER ==
[2022-10-12 20:46] VITALS: BMI 26.4
[2022-10-12] MEDS ORDERED: POLYETHYLENE GLYCOL (HEALTHYLAX) 3350 17 GM PACKET PO PRN (21:06)
[2022-10-12] MEDS ORDERED: guaiFENesin 600 MG TABLET.ER (FP) PO PRN (21:06)
[2022-10-12] MEDS ORDERED: COLLOIDAL OATMEAL 1 BAR EACH TP PRN (21:06)
[2022-10-12] MEDS ORDERED: ACETAMINOPHEN 325 MG TABLET (FP) PO PRN (21:06)
[2022-10-12] MEDS ORDERED: MAGNESIUM HYDROX 2400MG/30ML ORAL SUSPENSION 30 ML CUP PO PRN (21:06)
[2022-10-12] MEDS ORDERED: P-EPHED 60MG/TRIPROLIDI 2.5MG TABLET PO PRN (21:06)
[2022-10-12] MEDS ORDERED: MAG HYDROX/AL HYDROX/SIMETH 30 ML UNIT-DOSE CUP PO PRN (21:06)
[2022-10-12] MEDS ORDERED: IBUPROFEN 600 MG TABLET (FP) PO PRN (21:06)
[2022-10-12] MEDS ORDERED: IBUPROFEN 400 MG TABLET (FP) PO PRN (21:06)
[2022-10-12] MEDS ORDERED: BENZOCAINE/MENTHOL (CHLORASEPTIC ) LOZENGE MM PRN (21:06)
[2022-10-12] MEDS ORDERED: AMMONIUM LACTATE 12% LOTION 225 GM BOTTLE TP PRN (21:06)
[2022-10-12] MEDS ORDERED: BENZONATATE 200 MG CAPSULE PO PRN (21:06)
[2022-10-12] MEDS ORDERED: LOPERAMIDE HCL 2 MG CAPSULE PO PRN (21:06)
[2022-10-12] MEDS: THIAMINE HCL 100 MG TABLET (FP) PO SCH (21:36)
[2022-10-12] MEDS: MELATONIN 5 MG TABLETS PO SCH (21:36)
[2022-10-13] MEDS: PRENATAL VITAMINS W/ FOLIC ACID TABLET (FP) PO SCH (10:09)
[2022-10-13] MEDS: THIAMINE HCL 100 MG TABLET (FP) PO SCH (22:04)
[2022-10-13] MEDS: MELATONIN 5 MG TABLETS PO SCH (22:04)
[2022-10-14 07:30] VITALS: RESP 18
[2022-10-14] MEDS: PRENATAL VITAMINS W/ FOLIC ACID TABLET (FP) PO SCH (10:25)
[2022-10-14] MEDS: MELATONIN 5 MG TABLETS PO SCH (21:52)
[2022-10-14] MEDS: THIAMINE HCL 100 MG TABLET (FP) PO SCH (21:52)
[2022-10-15] MEDS: PRENATAL VITAMINS W/ FOLIC ACID TABLET (FP) PO SCH (09:54)
[2022-10-15] MEDS: THIAMINE HCL 100 MG TABLET (FP) PO SCH (21:47)
[2022-10-15] MEDS: MELATONIN 5 MG TABLETS PO SCH (21:47)
[2022-10-16] MEDS: PRENATAL VITAMINS W/ FOLIC ACID TABLET (FP) PO SCH ×2 (10:01→10:09)
[2022-10-16] MEDS: MELATONIN 5 MG TABLETS PO SCH (22:20)
[2022-10-16] MEDS: THIAMINE HCL 100 MG TABLET (FP) PO SCH (22:20)
[2022-10-17] MEDS: PRENATAL VITAMINS W/ FOLIC ACID TABLET (FP) PO SCH (09:58)
[2022-10-17] MEDS: THIAMINE HCL 100 MG TABLET (FP) PO SCH (22:11)
[2022-10-17] MEDS: MELATONIN 5 MG TABLETS PO SCH (22:11)
[2022-10-18] MEDS: PRENATAL VITAMINS W/ FOLIC ACID TABLET (FP) PO SCH (10:03)
[2022-10-18] MEDS: MELATONIN 5 MG TABLETS PO SCH (21:36)
[2022-10-18] MEDS: THIAMINE HCL 100 MG TABLET (FP) PO SCH (21:37)
[2022-10-19] MEDS: PRENATAL VITAMINS W/ FOLIC ACID TABLET (FP) PO SCH (09:53)
[2022-10-19] MEDS: THIAMINE HCL 100 MG TABLET (FP) PO SCH (22:44)
[2022-10-19] MEDS: MELATONIN 5 MG TABLETS PO SCH (22:44)
[2022-10-20] MEDS: PRENATAL VITAMINS W/ FOLIC ACID TABLET (FP) PO SCH (10:09)
[2022-10-20] MEDS: MELATONIN 5 MG TABLETS PO SCH (21:39)
[2022-10-20] MEDS: THIAMINE HCL 100 MG TABLET (FP) PO SCH (21:39)
[2022-10-21] MEDS: PRENATAL VITAMINS W/ FOLIC ACID TABLET (FP) PO SCH ×2 (08:40→10:16)
[2022-10-21 17:26] VITALS: BP 148/83; PULSE 87; TEMP 97.6
== END 2022-10-21 17:48 | disposition home or self-care (01) | DRG 895 ==
LOC: YASAS 19:46 → Y5N 21:07
PROVIDERS: ADMIT Allergy & Immunology; ATTEND Psychiatry & Neurology Pain Medicine
PROC: HZ42ZZZ Group Counseling for Substance Abuse Treatment, Cognitive-Behavioral (ICD-10-PCS; principal; 2022-10-12)
DX: F10.20 Alcohol dependence, uncomplicated (principal); F14.20 Cocaine dependence, uncomplicated; F12.20 Cannabis dependence, uncomplicated; F31.9 Bipolar disorder, unspecified; M25.552 Pain in left hip; M54.50 Low back pain, unspecified; G89.29 Other chronic pain; Z87.891 Personal history of nicotine dependence; Z86.11 Personal history of tuberculosis; Z86.19 Personal history of other infectious and parasitic diseases
CPT/HCPCS: C9803-CS; U0003; U0005

== ENCOUNTER 2022-11-16 17:38 | Inpatient (IN) | payer OTHER ==
[2022-11-16 18:37] VITALS: BMI 24.5
[2022-11-16] MEDS ORDERED: NALOXONE HCL 0.4 MG/ML VIAL IM PRN (20:31)
[2022-11-16] MEDS ORDERED: BISMUTH SUBSALICYLATE 524 MG/30 ML PO PRN (20:31)
[2022-11-16] MEDS ORDERED: chlordiazePOXIDE HCL 25 MG CAPSULE PO PRN (20:31)
[2022-11-16] MEDS ORDERED: DICYCLOMINE HCL 10 MG CAPSULE PO PRN (20:31)
[2022-11-16] MEDS ORDERED: POLYETHYLENE GLYCOL (HEALTHYLAX) 3350 17 GM PACKET PO PRN (20:31)
[2022-11-16] MEDS ORDERED: BENZOCAINE/MENTHOL (CHLORASEPTIC ) LOZENGE MM PRN (20:31)
[2022-11-16] MEDS ORDERED: IBUPROFEN 600 MG TABLET (FP) PO PRN (20:31)
[2022-11-16] MEDS ORDERED: BENZONATATE 200 MG CAPSULE PO PRN (20:31)
[2022-11-16] MEDS ORDERED: LOPERAMIDE HCL 2 MG CAPSULE PO PRN (20:31)
[2022-11-16] MEDS ORDERED: ONDANSETRON *ODT* 4 MG TABLET SL PRN (20:31)
[2022-11-16] MEDS ORDERED: METHOCARBAMOL 500 MG TABLET PO PRN (20:31)
[2022-11-16] MEDS ORDERED: ACETAMINOPHEN 325 MG TABLET (FP) PO PRN (20:31)
[2022-11-16] MEDS ORDERED: IBUPROFEN 400 MG TABLET (FP) PO PRN (20:31)
[2022-11-16] MEDS ORDERED: MAG HYDROX/AL HYDROX/SIMETH 30 ML UNIT-DOSE CUP PO PRN (20:31)
[2022-11-16] MEDS ORDERED: NALOXONE HCL (KLOXXADO) 8 MG SPRAY NS PRN (20:31)
[2022-11-16] MEDS ORDERED: MAGNESIUM HYDROX 2400MG/30ML ORAL SUSPENSION 30 ML CUP PO PRN (20:31)
[2022-11-16] MEDS ORDERED: guaiFENesin 600 MG TABLET.ER (FP) PO PRN (20:31)
[2022-11-17] MEDS: MELATONIN 5 MG TABLETS PO SCH ×2 (00:01→22:45)
[2022-11-17] MEDS: chlordiazePOXIDE HCL 25 MG CAPSULE PO SCH ×2 (00:01→06:00)
[2022-11-17] MEDS: THIAMINE HCL 100 MG TABLET (FP) PO SCH ×2 (00:01→22:43)
[2022-11-17] MEDS ORDERED: LORazepam 1 MG TABLET PO PRN (10:30)
[2022-11-17] MEDS: PRENATAL VITAMINS W/ FOLIC ACID TABLET (FP) PO SCH (10:36)
[2022-11-17] MEDS: LORazepam 2 MG TABLET PO SCH ×3 (10:38→22:43)
[2022-11-17 13:30] LABS: HEMATOCRIT 40.4 % (35.4-49); HEMOGLOBIN 13.2 GM/dL (11.7-16.9); MCH 27.4 pg (25.7-33.7); MCHC 32.6 g/dl (32.0-35.9); MEAN PLT VOLUME 8.7 fl (7.5-11.1); PLATELET COUNT 270 10^3/uL (134-434); RBC 4.81 M/mm3 (4.00-5.60); RDW 14.5 % (11.9-15.9); WHITE BLOOD COUNT 5.5 K/mm3 (4.0-10.0)
[2022-11-17 14:27] LABS: POTASSIUM 3.9 mmol/L (3.5-5.1)
[2022-11-17 14:38] LABS: CALCIUM 8.5 mg/dL (8.5-10.1)
[2022-11-17 14:39] LABS: ALBUMIN 3.7 g/dl (3.4-5.0); BLOOD UREA NITROGEN 14.7 mg/dL (7-18)
[2022-11-17 14:42] LABS: CREATININE 1.2 mg/dL (0.55-1.3)
[2022-11-17 14:43] LABS: BILIRUBIN,TOTAL 0.3 mg/dL (0.2-1); TOT PROT 7.3 g/dl (6.4-8.2)
[2022-11-18] MEDS ORDERED: chlordiazePOXIDE HCL 25 MG CAPSULE PO SCH (05:00)
[2022-11-18] MEDS: LORazepam 2 MG TABLET PO SCH ×4 (05:55→23:17)
[2022-11-18] MEDS: PRENATAL VITAMINS W/ FOLIC ACID TABLET (FP) PO SCH (10:03)
[2022-11-18] MEDS: THIAMINE HCL 100 MG TABLET (FP) PO SCH (23:17)
[2022-11-18] MEDS: MELATONIN 5 MG TABLETS PO SCH (23:17)
[2022-11-19] MEDS ORDERED: chlordiazePOXIDE HCL 10 MG CAPSULE PO PRN
[2022-11-19] MEDS ORDERED: chlordiazePOXIDE HCL 10 MG CAPSULE PO SCH (05:00)
[2022-11-19] MEDS: LORazepam 1 MG TABLET PO SCH ×3 (05:30→10:53)
[2022-11-19] MEDS: PRENATAL VITAMINS W/ FOLIC ACID TABLET (FP) PO SCH (10:45)
[2022-11-19] MEDS: LORazepam 0.5 MG TABLET PO SCH ×3 (10:55→22:37)
[2022-11-19] MEDS ORDERED: LORazepam 0.5 MG TABLET PO PRN (13:44)
[2022-11-19] MEDS: MELATONIN 5 MG TABLETS PO SCH (22:38)
[2022-11-19] MEDS: THIAMINE HCL 100 MG TABLET (FP) PO SCH (22:39)
[2022-11-20] MEDS ORDERED: LORazepam 0.5 MG TABLET PO PRN
[2022-11-20] MEDS ORDERED: chlordiazePOXIDE HCL 10 MG CAPSULE PO SCH (05:00)
[2022-11-20] MEDS: LORazepam 0.5 MG TABLET PO SCH ×2 (05:57→10:17)
[2022-11-20 09:37] VITALS: BP 143/91; PULSE 81; RESP 18; TEMP 96.5
[2022-11-20] MEDS: PRENATAL VITAMINS W/ FOLIC ACID TABLET (FP) PO SCH (09:49)
[2022-11-21] MEDS ORDERED: chlordiazePOXIDE HCL 10 MG CAPSULE PO ONE (05:00)
[2022-11-21] MEDS ORDERED: LORazepam 0.5 MG TABLET PO ONE (05:00)
== END 2022-11-20 10:15 | disposition home or self-care (01) | DRG 897 ==
LOC: YASAS 17:38 → Y6N 22:02
PROVIDERS: ADMIT Allergy & Immunology; ATTEND Surgery
PROC: HZ2ZZZZ Detoxification Services for Substance Abuse Treatment (ICD-10-PCS; principal; 2022-11-15)
DX: F10.230 Alcohol dependence with withdrawal, uncomplicated (principal); F14.10 Cocaine abuse, uncomplicated; F12.20 Cannabis dependence, uncomplicated; F31.9 Bipolar disorder, unspecified; Z86.11 Personal history of tuberculosis; Z86.19 Personal history of other infectious and parasitic diseases; Z87.891 Personal history of nicotine dependence; Z80.0 Family history of malignant neoplasm of digestive organs; Z91.014 Allergy to mammalian meats; Z91.013 Allergy to seafood
CPT/HCPCS: 36415; 80053; 85027; 86593; 86780; 87635; 87811

== ENCOUNTER 2022-12-01 17:34 | Inpatient (IN) | payer OTHER ==
[2022-12-01 18:31] VITALS: BMI 27.1
[2022-12-01] MEDS ORDERED: ACETAMINOPHEN 325 MG TABLET (FP) PO PRN (21:27)
[2022-12-01] MEDS ORDERED: IBUPROFEN 600 MG TABLET (FP) PO PRN (21:27)
[2022-12-01] MEDS ORDERED: LOPERAMIDE HCL 2 MG CAPSULE PO PRN (21:27)
[2022-12-01] MEDS ORDERED: BENZONATATE 200 MG CAPSULE PO PRN (21:27)
[2022-12-01] MEDS ORDERED: MAGNESIUM HYDROX 2400MG/30ML ORAL SUSPENSION 30 ML CUP PO PRN (21:27)
[2022-12-01] MEDS ORDERED: guaiFENesin 600 MG TABLET.ER (FP) PO PRN (21:27)
[2022-12-01] MEDS ORDERED: POLYETHYLENE GLYCOL (HEALTHYLAX) 3350 17 GM PACKET PO PRN (21:27)
[2022-12-01] MEDS ORDERED: AMMONIUM LACTATE 12% LOTION 225 GM BOTTLE TP PRN (21:27)
[2022-12-01] MEDS ORDERED: COLLOIDAL OATMEAL 1 BAR EACH TP PRN (21:27)
[2022-12-01] MEDS ORDERED: NALOXONE HCL (KLOXXADO) 8 MG SPRAY NS PRN (21:27)
[2022-12-01] MEDS ORDERED: NICOTINE 10 MG CARTRIDGE (INHALER) IH PRN (21:27)
[2022-12-01] MEDS ORDERED: NALOXONE HCL 0.4 MG/ML VIAL IM PRN (21:27)
[2022-12-01] MEDS ORDERED: IBUPROFEN 400 MG TABLET (FP) PO PRN (21:27)
[2022-12-01] MEDS ORDERED: MAG HYDROX/AL HYDROX/SIMETH 30 ML UNIT-DOSE CUP PO PRN (21:27)
[2022-12-01] MEDS ORDERED: BENZOCAINE/MENTHOL (CHLORASEPTIC ) LOZENGE MM PRN (21:27)
[2022-12-01] MEDS: MELATONIN 5 MG TABLETS PO SCH (23:28)
[2022-12-01] MEDS: THIAMINE HCL 100 MG TABLET (FP) PO SCH (23:28)
[2022-12-01 23:31] VITALS: RESP 18
[2022-12-02] MEDS: PRENATAL VITAMINS W/ FOLIC ACID TABLET (FP) PO SCH (10:05)
[2022-12-02 11:17] LABS: HEMATOCRIT 38.9 % (35.4-49); HEMOGLOBIN 12.7 GM/dL (11.7-16.9); MCH 28.1 pg (25.7-33.7); MCHC 32.7 g/dl (32.0-35.9); MEAN CELL VOLUME 85.9 fl (80-96); PLATELET COUNT 244 10^3/uL (134-434); RBC 4.53 M/mm3 (4.00-5.60); RDW 14.4 % (11.9-15.9); WHITE BLOOD COUNT 4.3 K/mm3 (4.0-10.0)
[2022-12-02 11:25] LABS: POTASSIUM 4.4 mmol/L (3.5-5.1)
[2022-12-02 11:35] LABS: CALCIUM 8.7 mg/dL (8.5-10.1)
[2022-12-02 11:36] LABS: ALBUMIN 3.4 g/dl (3.4-5.0); BLOOD UREA NITROGEN 16.8 mg/dL (7-18)
[2022-12-02 11:39] LABS: CREATININE 1.1 mg/dL (0.55-1.3)
[2022-12-02 11:40] LABS: BILIRUBIN,TOTAL 0.6 mg/dL (0.2-1); TOT PROT 6.5 g/dl (6.4-8.2)
[2022-12-02 21:21] LABS: PH,URINE 6.5 (5.0-8.0); URINE APPEARANCE CLEAR; URINE BILIRUBIN NEGATIVE (NEGATIVE); URINE COLOR YELLOW; URINE GLUCOSE (UA) NEGATIVE (NEGATIVE); URINE KETONE NEGATIVE (NEGATIVE); URINE LEUK ESTERASE NEGATIVE (NEGATIVE); URINE NITRITE NEGATIVE (NEGATIVE); URINE PROTEIN NEGATIVE (NEGATIVE); URINE UROBILINOGEN 0.2 mg/dL (0.2-1.0)
[2022-12-02] MEDS: THIAMINE HCL 100 MG TABLET (FP) PO SCH (21:59)
[2022-12-02] MEDS: MELATONIN 5 MG TABLETS PO SCH (21:59)
[2022-12-03] MEDS: PRENATAL VITAMINS W/ FOLIC ACID TABLET (FP) PO SCH (10:10)
[2022-12-03] MEDS: MELATONIN 5 MG TABLETS PO SCH (21:52)
[2022-12-03] MEDS: THIAMINE HCL 100 MG TABLET (FP) PO SCH (21:52)
[2022-12-04 07:07] VITALS: BP 118/61; PULSE 83; TEMP 97.1
[2022-12-04] MEDS: PRENATAL VITAMINS W/ FOLIC ACID TABLET (FP) PO SCH (10:32)
== END 2022-12-04 10:40 | disposition left against medical advice (07) | DRG 894 ==
LOC: YASAS 17:34 → Y5N 22:19
PROVIDERS: ADMIT Allergy & Immunology; ATTEND Surgery
PROC: HZ42ZZZ Group Counseling for Substance Abuse Treatment, Cognitive-Behavioral (ICD-10-PCS; principal; 2022-12-01)
DX: F10.20 Alcohol dependence, uncomplicated (principal); F14.20 Cocaine dependence, uncomplicated; F12.20 Cannabis dependence, uncomplicated; F31.9 Bipolar disorder, unspecified; Z87.891 Personal history of nicotine dependence; Z86.11 Personal history of tuberculosis; Z86.19 Personal history of other infectious and parasitic diseases; Z88.0 Allergy status to penicillin; Z91.013 Allergy to seafood; Z91.018 Allergy to other foods
CPT/HCPCS: 36415; 71046-TC-FY; 80053; 81003; 85027; 86593; 86780; 87635

== ENCOUNTER 2023-01-02 20:56 | Inpatient (IN) | payer OTHER ==
[2023-01-02 21:42] VITALS: BMI 25.4
[2023-01-02] MEDS ORDERED: BISMUTH SUBSALICYLATE 524 MG/30 ML PO PRN (22:35)
[2023-01-02] MEDS ORDERED: METHOCARBAMOL 500 MG TABLET PO PRN (22:35)
[2023-01-02] MEDS ORDERED: NALOXONE HCL 0.4 MG/ML VIAL IM PRN (22:35)
[2023-01-02] MEDS ORDERED: MAGNESIUM HYDROX 2400MG/30ML ORAL SUSPENSION 30 ML CUP PO PRN (22:35)
[2023-01-02] MEDS ORDERED: BENZOCAINE/MENTHOL (CHLORASEPTIC ) LOZENGE MM PRN (22:35)
[2023-01-02] MEDS ORDERED: POLYETHYLENE GLYCOL (HEALTHYLAX) 3350 17 GM PACKET PO PRN (22:35)
[2023-01-02] MEDS ORDERED: LOPERAMIDE HCL 2 MG CAPSULE PO PRN (22:35)
[2023-01-02] MEDS ORDERED: IBUPROFEN 600 MG TABLET (FP) PO PRN (22:35)
[2023-01-02] MEDS ORDERED: ACETAMINOPHEN 325 MG TABLET (FP) PO PRN (22:35)
[2023-01-02] MEDS ORDERED: MAG HYDROX/AL HYDROX/SIMETH 30 ML UNIT-DOSE CUP PO PRN (22:35)
[2023-01-02] MEDS ORDERED: guaiFENesin 600 MG TABLET.ER (FP) PO PRN (22:35)
[2023-01-02] MEDS ORDERED: DICYCLOMINE HCL 10 MG CAPSULE PO PRN (22:35)
[2023-01-02] MEDS ORDERED: NALOXONE HCL (KLOXXADO) 8 MG SPRAY NS PRN (22:35)
[2023-01-02] MEDS ORDERED: BENZONATATE 200 MG CAPSULE PO PRN (22:35)
[2023-01-02] MEDS ORDERED: IBUPROFEN 400 MG TABLET (FP) PO PRN (22:35)
[2023-01-02] MEDS ORDERED: ONDANSETRON *ODT* 4 MG TABLET SL PRN (22:35)
[2023-01-03 09:02] VITALS: RESP 18
[2023-01-03] MEDS: PRENATAL VITAMINS W/ FOLIC ACID TABLET (FP) PO SCH (10:10)
[2023-01-03] MEDS ORDERED: MELATONIN 5 MG TABLETS PO SCH (22:00)
[2023-01-03] MEDS ORDERED: THIAMINE HCL 100 MG TABLET (FP) PO SCH (22:00)
[2023-01-04 08:50] VITALS: BP 117/75; PULSE 82; TEMP 98.1
[2023-01-04 10:46] LABS: HEMATOCRIT 39.1 % (35.4-49); HEMOGLOBIN 12.3 GM/dL (11.7-16.9); MCH 27.3 pg (25.7-33.7); MCHC 31.6 g/dl (32.0-35.9); MEAN CELL VOLUME 86.6 fl (80-96); MEAN PLT VOLUME 8.9 fl (7.5-11.1); PLATELET COUNT 267 10^3/uL (134-434); RBC 4.51 M/mm3 (4.00-5.60); RDW 14.7 % (11.9-15.9)
[2023-01-04 10:53] LABS: POTASSIUM 4.2 mmol/L (3.5-5.1)
[2023-01-04 11:08] LABS: ALBUMIN 3.3 g/dl (3.4-5.0); BLOOD UREA NITROGEN 23.4 mg/dL (7-18)
[2023-01-04 11:11] LABS: CREATININE 1.4 mg/dL (0.55-1.3)
[2023-01-04 11:12] LABS: CALCIUM 8.7 mg/dL (8.5-10.1); TOT PROT 6.7 g/dl (6.4-8.2)
[2023-01-04 11:13] LABS: BILIRUBIN,TOTAL 0.2 mg/dL (0.2-1)
[2023-01-04] MEDS: PRENATAL VITAMINS W/ FOLIC ACID TABLET (FP) PO SCH (13:22)
== END 2023-01-04 13:09 | disposition home or self-care (01) | DRG 897 ==
LOC: YASAS 20:56 → Y3N 23:25
PROVIDERS: ADMIT Allergy & Immunology; ATTEND Surgery
DX: F10.20 Alcohol dependence, uncomplicated (principal); F12.20 Cannabis dependence, uncomplicated; F31.9 Bipolar disorder, unspecified; Z87.891 Personal history of nicotine dependence; Z86.11 Personal history of tuberculosis; Z86.19 Personal history of other infectious and parasitic diseases; Z88.0 Allergy status to penicillin; Z91.018 Allergy to other foods
CPT/HCPCS: 36415; 80053; 85027; 86593; 86780; 87635

== ENCOUNTER 2023-02-16 19:37 | Inpatient (IN) | payer OTHER ==
[2023-02-16 20:28] VITALS: BMI 26.5
[2023-02-16] MEDS ORDERED: NALOXONE HCL (KLOXXADO) 8 MG SPRAY NS PRN (23:07)
[2023-02-16] MEDS ORDERED: ONDANSETRON *ODT* 4 MG TABLET SL PRN (23:07)
[2023-02-16] MEDS ORDERED: BENZOCAINE/MENTHOL (CHLORASEPTIC ) LOZENGE MM PRN (23:07)
[2023-02-16] MEDS ORDERED: METHOCARBAMOL 500 MG TABLET PO PRN (23:07)
[2023-02-16] MEDS ORDERED: LOPERAMIDE HCL 2 MG CAPSULE PO PRN (23:07)
[2023-02-16] MEDS ORDERED: IBUPROFEN 400 MG TABLET (FP) PO PRN (23:07)
[2023-02-16] MEDS ORDERED: MAGNESIUM HYDROX 2400MG/30ML ORAL SUSPENSION 30 ML CUP PO PRN (23:07)
[2023-02-16] MEDS ORDERED: hydrOXYzine PAMOATE 25 MG CAPSULE (FP) PO PRN (23:07)
[2023-02-16] MEDS ORDERED: NALOXONE HCL 0.4 MG/ML VIAL IM PRN (23:07)
[2023-02-16] MEDS ORDERED: DICYCLOMINE HCL 10 MG CAPSULE PO PRN (23:07)
[2023-02-16] MEDS ORDERED: POLYETHYLENE GLYCOL (HEALTHYLAX) 3350 17 GM PACKET PO PRN (23:07)
[2023-02-16] MEDS ORDERED: IBUPROFEN 600 MG TABLET (FP) PO PRN (23:07)
[2023-02-16] MEDS ORDERED: ACETAMINOPHEN 325 MG TABLET (FP) PO PRN (23:07)
[2023-02-16] MEDS ORDERED: BISMUTH SUBSALICYLATE 524 MG/30 ML PO PRN (23:07)
[2023-02-16] MEDS ORDERED: guaiFENesin 600 MG TABLET.ER (FP) PO PRN (23:07)
[2023-02-16] MEDS ORDERED: MAG HYDROX/AL HYDROX/SIMETH 30 ML UNIT-DOSE CUP PO PRN (23:07)
[2023-02-16] MEDS ORDERED: BENZONATATE 200 MG CAPSULE PO PRN (23:07)
[2023-02-17] MEDS: PRENATAL VITAMINS W/ FOLIC ACID TABLET (FP) PO SCH (10:13)
[2023-02-17] MEDS: THIAMINE HCL 100 MG TABLET (FP) PO SCH (23:09)
[2023-02-17] MEDS: MELATONIN 5 MG TABLETS PO SCH (23:09)
[2023-02-18] MEDS: PRENATAL VITAMINS W/ FOLIC ACID TABLET (FP) PO SCH (10:23)
[2023-02-18] MEDS ORDERED: LORazepam 1 MG TABLET PO PRN (10:34)
[2023-02-18] MEDS: LORazepam 1 MG TABLET PO SCH ×3 (11:05→22:36)
[2023-02-18] MEDS: THIAMINE HCL 100 MG TABLET (FP) PO SCH (22:35)
[2023-02-18] MEDS: MELATONIN 5 MG TABLETS PO SCH (22:36)
[2023-02-19] MEDS: LORazepam 1 MG TABLET PO SCH ×2 (06:01→11:28)
[2023-02-19 06:25] VITALS: RESP 18
[2023-02-19 09:33] VITALS: BP 138/83; PULSE 82; TEMP 97.5
[2023-02-19] MEDS: PRENATAL VITAMINS W/ FOLIC ACID TABLET (FP) PO SCH (11:29)
[2023-02-20] MEDS ORDERED: LORazepam 1 MG TABLET PO SCH (05:00)
[2023-02-21] MEDS ORDERED: LORazepam 0.5 MG TABLET PO PRN
[2023-02-21] MEDS ORDERED: LORazepam 0.5 MG TABLET PO SCH (05:00)
[2023-02-22] MEDS ORDERED: LORazepam 0.5 MG TABLET PO ONE (05:00)
== END 2023-02-19 12:00 | disposition left against medical advice (07) | DRG 894 ==
LOC: YASAS 19:37 → Y6N 02-17 01:53
PROVIDERS: ADMIT Allergy & Immunology; ATTEND Surgery
PROC: HZ2ZZZZ Detoxification Services for Substance Abuse Treatment (ICD-10-PCS; principal; 2023-02-17)
DX: F10.230 Alcohol dependence with withdrawal, uncomplicated (principal); F14.20 Cocaine dependence, uncomplicated; Z87.891 Personal history of nicotine dependence; Z86.11 Personal history of tuberculosis; Z86.19 Personal history of other infectious and parasitic diseases; Z88.0 Allergy status to penicillin
CPT/HCPCS: 87635; 87811

== ENCOUNTER 2023-03-14 15:49 | Inpatient (IN) | payer OTHER ==
[2023-03-14 17:04] VITALS: BMI 26.9
[2023-03-14] MEDS ORDERED: BISMUTH SUBSALICYLATE 524 MG/30 ML PO PRN (18:48)
[2023-03-14] MEDS ORDERED: BENZOCAINE/MENTHOL (CHLORASEPTIC ) LOZENGE MM PRN (18:48)
[2023-03-14] MEDS ORDERED: MAGNESIUM HYDROX 2400MG/30ML ORAL SUSPENSION 30 ML CUP PO PRN (18:48)
[2023-03-14] MEDS ORDERED: NALOXONE HCL 0.4 MG/ML VIAL IM PRN (18:48)
[2023-03-14] MEDS ORDERED: LOPERAMIDE HCL 2 MG CAPSULE PO PRN (18:48)
[2023-03-14] MEDS ORDERED: MAG HYDROX/AL HYDROX/SIMETH 30 ML UNIT-DOSE CUP PO PRN (18:48)
[2023-03-14] MEDS ORDERED: DICYCLOMINE HCL 10 MG CAPSULE PO PRN (18:48)
[2023-03-14] MEDS ORDERED: ACETAMINOPHEN 325 MG TABLET (FP) PO PRN (18:48)
[2023-03-14] MEDS ORDERED: BENZONATATE 200 MG CAPSULE PO PRN (18:48)
[2023-03-14] MEDS ORDERED: NALOXONE HCL (KLOXXADO) 8 MG SPRAY NS PRN (18:48)
[2023-03-14] MEDS ORDERED: IBUPROFEN 400 MG TABLET (FP) PO PRN (18:48)
[2023-03-14] MEDS ORDERED: ONDANSETRON *ODT* 4 MG TABLET SL PRN (18:48)
[2023-03-14] MEDS ORDERED: POLYETHYLENE GLYCOL (HEALTHYLAX) 3350 17 GM PACKET PO PRN (18:48)
[2023-03-14] MEDS ORDERED: IBUPROFEN 600 MG TABLET (FP) PO PRN (18:48)
[2023-03-14] MEDS ORDERED: guaiFENesin 600 MG TABLET.ER (FP) PO PRN (18:48)
[2023-03-14] MEDS: THIAMINE HCL 100 MG TABLET (FP) PO SCH (23:14)
[2023-03-14] MEDS: MELATONIN 5 MG TABLETS PO SCH (23:14)
[2023-03-15] MEDS: PRENATAL VITAMINS W/ FOLIC ACID TABLET (FP) PO SCH (10:04)
[2023-03-15] MEDS: METHOCARBAMOL 500 MG TABLET PO PRN (10:05)
[2023-03-15] MEDS: hydrOXYzine PAMOATE 25 MG CAPSULE (FP) PO PRN (10:05)
[2023-03-15] MEDS ORDERED: LORazepam 1 MG TABLET PO PRN (10:10)
[2023-03-15 10:25] LABS: HEMATOCRIT 40.6 % (35.4-49); HEMOGLOBIN 13.4 GM/dL (11.7-16.9); MCH 27.9 pg (25.7-33.7); MEAN CELL VOLUME 84.3 fl (80-96); MEAN PLT VOLUME 8.4 fl (7.5-11.1); PLATELET COUNT 281 10^3/uL (134-434); RBC 4.81 M/mm3 (4.00-5.60); RDW 14.7 % (11.9-15.9); WHITE BLOOD COUNT 6.5 K/mm3 (4.0-10.0)
[2023-03-15 10:40] LABS: POTASSIUM 4.6 mmol/L (3.5-5.1)
[2023-03-15 10:45] LABS: ALBUMIN 3.8 g/dl (3.4-5.0)
[2023-03-15 10:46] LABS: BLOOD UREA NITROGEN 24.1 mg/dL (7-18); CALCIUM 8.3 mg/dL (8.5-10.1)
[2023-03-15 10:49] LABS: CREATININE 1.5 mg/dL (0.55-1.3)
[2023-03-15 10:51] LABS: BILIRUBIN,TOTAL 0.3 mg/dL (0.2-1); TOT PROT 7.6 g/dl (6.4-8.2)
[2023-03-15] MEDS: LORazepam 2 MG TABLET PO SCH ×3 (11:03→23:45)
[2023-03-15] MEDS: THIAMINE HCL 100 MG TABLET (FP) PO SCH (23:45)
[2023-03-15] MEDS: MELATONIN 5 MG TABLETS PO SCH (23:45)
[2023-03-16] MEDS: LORazepam 2 MG TABLET PO SCH ×4 (05:26→22:33)
[2023-03-16] MEDS: METHOCARBAMOL 500 MG TABLET PO PRN (10:06)
[2023-03-16] MEDS: PRENATAL VITAMINS W/ FOLIC ACID TABLET (FP) PO SCH (10:06)
[2023-03-16] MEDS: hydrOXYzine PAMOATE 25 MG CAPSULE (FP) PO PRN (10:06)
[2023-03-16] MEDS: THIAMINE HCL 100 MG TABLET (FP) PO SCH (22:33)
[2023-03-16] MEDS: MELATONIN 5 MG TABLETS PO SCH (22:36)
[2023-03-17] MEDS: LORazepam 1 MG TABLET PO SCH ×4 (05:47→22:29)
[2023-03-17] MEDS: PRENATAL VITAMINS W/ FOLIC ACID TABLET (FP) PO SCH (10:21)
[2023-03-17] MEDS: METHOCARBAMOL 500 MG TABLET PO PRN (10:22)
[2023-03-17] MEDS: hydrOXYzine PAMOATE 25 MG CAPSULE (FP) PO PRN (10:22)
[2023-03-17 21:17] VITALS: RESP 18
[2023-03-17] MEDS: THIAMINE HCL 100 MG TABLET (FP) PO SCH (22:29)
[2023-03-17] MEDS: MELATONIN 5 MG TABLETS PO SCH (22:31)
[2023-03-18] MEDS ORDERED: LORazepam 0.5 MG TABLET PO PRN
[2023-03-18] MEDS ORDERED: LORazepam 0.5 MG TABLET PO SCH (05:00)
[2023-03-18 06:17] VITALS: BP 128/69; PULSE 87; TEMP 97.7
[2023-03-18] MEDS: PRENATAL VITAMINS W/ FOLIC ACID TABLET (FP) PO SCH (09:54)
[2023-03-19] MEDS ORDERED: LORazepam 0.5 MG TABLET PO ONE (05:00)
== END 2023-03-18 09:57 | disposition home or self-care (01) | DRG 897 ==
LOC: YASAS 15:49 → Y6N 18:24
PROVIDERS: ADMIT Allergy & Immunology; ATTEND Surgery
PROC: HZ2ZZZZ Detoxification Services for Substance Abuse Treatment (ICD-10-PCS; principal; 2023-03-14)
DX: F10.230 Alcohol dependence with withdrawal, uncomplicated (principal); F14.20 Cocaine dependence, uncomplicated; F12.20 Cannabis dependence, uncomplicated; F31.9 Bipolar disorder, unspecified; Z87.891 Personal history of nicotine dependence; Z86.11 Personal history of tuberculosis; Z86.19 Personal history of other infectious and parasitic diseases; Z91.199 Patient's noncompliance with other medical treatment and regimen due to unspecified reason; Z88.0 Allergy status to penicillin
CPT/HCPCS: 36415; 80053; 82962; 85027; 86593; 86780; 87635

== ENCOUNTER 2023-05-23 07:01 | Emergency (ER) | payer OTHER ==
[2023-05-23 07:26] VITALS: BMI 27.3
[2023-05-23 10:08] VITALS: BP 97/74; PULSE 76; RESP 20; TEMP 98.2
== END 2023-05-23 11:26 | disposition home or self-care (01) ==
LOC: JER 07:01
DX: F10.129 Alcohol abuse with intoxication, unspecified (principal); Y90.9 Presence of alcohol in blood, level not specified
CPT/HCPCS: 99282-25

== ENCOUNTER 2023-05-23 12:21 | Inpatient (IN) | payer OTHER ==
[2023-05-23 13:00] VITALS: BMI 27.1
[2023-05-23] MEDS ORDERED: LORazepam 1 MG TABLET PO PRN (14:18)
[2023-05-23] MEDS ORDERED: guaiFENesin 600 MG TABLET.ER (FP) PO PRN (14:19)
[2023-05-23] MEDS ORDERED: IBUPROFEN 600 MG TABLET (FP) PO PRN (14:19)
[2023-05-23] MEDS ORDERED: DICYCLOMINE HCL 10 MG CAPSULE PO PRN (14:19)
[2023-05-23] MEDS ORDERED: hydrOXYzine PAMOATE 25 MG CAPSULE (FP) PO PRN (14:19)
[2023-05-23] MEDS ORDERED: NALOXONE HCL (KLOXXADO) 8 MG SPRAY NS PRN (14:19)
[2023-05-23] MEDS ORDERED: BENZOCAINE/MENTHOL (CHLORASEPTIC ) LOZENGE MM PRN (14:19)
[2023-05-23] MEDS ORDERED: ACETAMINOPHEN 325 MG TABLET (FP) PO PRN (14:19)
[2023-05-23] MEDS ORDERED: BISMUTH SUBSALICYLATE 524 MG/30 ML PO PRN (14:19)
[2023-05-23] MEDS ORDERED: BENZONATATE 200 MG CAPSULE PO PRN (14:19)
[2023-05-23] MEDS ORDERED: MAG HYDROX/AL HYDROX/SIMETH 30 ML UNIT-DOSE CUP PO PRN (14:19)
[2023-05-23] MEDS ORDERED: MAGNESIUM HYDROX 2400MG/30ML ORAL SUSPENSION 30 ML CUP PO PRN (14:19)
[2023-05-23] MEDS ORDERED: IBUPROFEN 400 MG TABLET (FP) PO PRN (14:19)
[2023-05-23] MEDS ORDERED: NALOXONE HCL 0.4 MG/ML VIAL IM PRN (14:19)
[2023-05-23] MEDS ORDERED: METHOCARBAMOL 500 MG TABLET PO PRN (14:19)
[2023-05-23] MEDS ORDERED: LOPERAMIDE HCL 2 MG CAPSULE PO PRN (14:19)
[2023-05-23] MEDS ORDERED: POLYETHYLENE GLYCOL (HEALTHYLAX) 3350 17 GM PACKET PO PRN (14:19)
[2023-05-23] MEDS ORDERED: ONDANSETRON *ODT* 4 MG TABLET SL PRN (14:19)
[2023-05-23] MEDS: LORazepam 2 MG TABLET PO SCH ×2 (17:11→22:30)
[2023-05-23] MEDS: MELATONIN 5 MG TABLETS PO SCH (22:29)
[2023-05-23] MEDS: THIAMINE HCL 100 MG TABLET (FP) PO SCH (22:30)
[2023-05-24] MEDS: LORazepam 2 MG TABLET PO SCH ×4 (06:19→22:29)
[2023-05-24] MEDS: PRENATAL VITAMINS W/ FOLIC ACID TABLET (FP) PO SCH (10:12)
[2023-05-24 11:34] LABS: HEMOGLOBIN 12.7 GM/dL (11.7-16.9); MCH 27.1 pg (25.7-33.7); MCHC 31.9 g/dl (32.0-35.9); MEAN CELL VOLUME 85.1 fl (80-96); MEAN PLT VOLUME 8.3 fl (7.5-11.1); PLATELET COUNT 249 10^3/uL (134-434); WHITE BLOOD COUNT 5.3 K/mm3 (4.0-10.0)
[2023-05-24 11:44] LABS: CHLORIDE 106 mmol/L (98-107); POTASSIUM 4.3 mmol/L (3.5-5.1); SODIUM 137 mmol/L (136-145)
[2023-05-24 11:51] LABS: CALCIUM 8.9 mg/dL (8.5-10.1)
[2023-05-24 11:52] LABS: ALBUMIN 3.4 g/dl (3.4-5.0); ANION GAP 4 mmol/L (4-13); BLOOD UREA NITROGEN 21.7 mg/dL (7-18); CO2 27 mmol/L (21-32); GLUCOSE,RANDOM 83 mg/dL (74-106)
[2023-05-24 11:54] LABS: SGPT/ALT 17 U/L (13-61)
[2023-05-24 11:55] LABS: CREATININE 1.4 mg/dL (0.55-1.3); SGOT/AST 10 U/L (15-37)
[2023-05-24 11:56] LABS: BILIRUBIN,TOTAL 0.1 mg/dL (0.2-1); TOT PROT 6.6 g/dl (6.4-8.2)
[2023-05-24 11:57] LABS: ALK PHOS 84 U/L (45-117)
[2023-05-24] MEDS: THIAMINE HCL 100 MG TABLET (FP) PO SCH (22:29)
[2023-05-24] MEDS: MELATONIN 5 MG TABLETS PO SCH (22:29)
[2023-05-25] MEDS: LORazepam 1 MG TABLET PO SCH ×4 (05:50→22:18)
[2023-05-25] MEDS: PRENATAL VITAMINS W/ FOLIC ACID TABLET (FP) PO SCH (10:26)
[2023-05-25] MEDS: MELATONIN 5 MG TABLETS PO SCH (22:19)
[2023-05-25] MEDS: THIAMINE HCL 100 MG TABLET (FP) PO SCH (22:19)
[2023-05-26] MEDS ORDERED: LORazepam 0.5 MG TABLET PO PRN
[2023-05-26] MEDS: LORazepam 0.5 MG TABLET PO SCH ×4 (05:59→22:30)
[2023-05-26] MEDS: PRENATAL VITAMINS W/ FOLIC ACID TABLET (FP) PO SCH (10:11)
[2023-05-26 21:33] VITALS: RESP 18
[2023-05-26] MEDS: THIAMINE HCL 100 MG TABLET (FP) PO SCH (22:42)
[2023-05-26] MEDS: MELATONIN 5 MG TABLETS PO SCH (22:42)
[2023-05-27] MEDS ORDERED: LORazepam 0.5 MG TABLET PO ONE (05:00)
[2023-05-27 06:53] VITALS: BP 113/69; PULSE 69; TEMP 98.3
== END 2023-05-27 10:25 | disposition home or self-care (01) | DRG 897 ==
LOC: YASAS 12:21 → SUATTDRO 12:21 → Y3N 14:08
PROVIDERS: ADMIT Allergy & Immunology; ATTEND Surgery
PROC: HZ2ZZZZ Detoxification Services for Substance Abuse Treatment (ICD-10-PCS; principal; 2023-05-23)
DX: F10.230 Alcohol dependence with withdrawal, uncomplicated (principal); F14.20 Cocaine dependence, uncomplicated; F12.20 Cannabis dependence, uncomplicated; F17.210 Nicotine dependence, cigarettes, uncomplicated; F31.9 Bipolar disorder, unspecified; Z86.11 Personal history of tuberculosis; Z86.19 Personal history of other infectious and parasitic diseases; Z88.0 Allergy status to penicillin; Z88.8 Allergy status to other drugs, medicaments and biological substances
CPT/HCPCS: 36415; 80053; 80307; 85027; 86593; 86780; 87635; 87811

== ENCOUNTER 2023-06-15 22:46 | Inpatient (IN) | payer OTHER ==
[2023-06-15 23:19] VITALS: BMI 27.0
[2023-06-15] MEDS ORDERED: BISMUTH SUBSALICYLATE 524 MG/30 ML PO PRN (23:55)
[2023-06-15] MEDS ORDERED: hydrOXYzine PAMOATE 25 MG CAPSULE (FP) PO PRN (23:55)
[2023-06-15] MEDS ORDERED: POLYETHYLENE GLYCOL (HEALTHYLAX) 3350 17 GM PACKET PO PRN (23:55)
[2023-06-15] MEDS ORDERED: BENZOCAINE/MENTHOL (CHLORASEPTIC ) LOZENGE MM PRN (23:55)
[2023-06-15] MEDS ORDERED: LOPERAMIDE HCL 2 MG CAPSULE PO PRN (23:55)
[2023-06-15] MEDS ORDERED: NALOXONE HCL (KLOXXADO) 8 MG SPRAY NS PRN (23:55)
[2023-06-15] MEDS ORDERED: IBUPROFEN 600 MG TABLET (FP) PO PRN (23:55)
[2023-06-15] MEDS ORDERED: guaiFENesin 600 MG TABLET.ER (FP) PO PRN (23:55)
[2023-06-15] MEDS ORDERED: MAGNESIUM HYDROX 2400MG/30ML ORAL SUSPENSION 30 ML CUP PO PRN (23:55)
[2023-06-15] MEDS ORDERED: ONDANSETRON *ODT* 4 MG TABLET SL PRN (23:55)
[2023-06-15] MEDS ORDERED: BENZONATATE 200 MG CAPSULE PO PRN (23:55)
[2023-06-15] MEDS ORDERED: IBUPROFEN 400 MG TABLET (FP) PO PRN (23:55)
[2023-06-15] MEDS ORDERED: NALOXONE HCL 0.4 MG/ML VIAL IM PRN (23:55)
[2023-06-15] MEDS ORDERED: ACETAMINOPHEN 325 MG TABLET (FP) PO PRN (23:55)
[2023-06-15] MEDS ORDERED: MAG HYDROX/AL HYDROX/SIMETH 30 ML UNIT-DOSE CUP PO PRN (23:55)
[2023-06-16 08:30] LABS: CHLORIDE 103 mmol/L (98-107); POTASSIUM 4.3 mmol/L (3.5-5.1); SODIUM 137 mmol/L (136-145)
[2023-06-16 08:35] LABS: HEMATOCRIT 42.9 % (35.4-49); HEMOGLOBIN 13.9 GM/dL (11.7-16.9); MCH 27.5 pg (25.7-33.7); MCHC 32.3 g/dl (32.0-35.9); MEAN PLT VOLUME 8.7 fl (7.5-11.1); PLATELET COUNT 303 10^3/uL (134-434); RBC 5.05 M/mm3 (4.00-5.60); RDW 14.9 % (11.9-15.9)
[2023-06-16 08:39] LABS: CALCIUM 9.1 mg/dL (8.5-10.1)
[2023-06-16 08:40] LABS: ALBUMIN 3.7 g/dl (3.4-5.0); ANION GAP 6 mmol/L (4-13); BLOOD UREA NITROGEN 17.2 mg/dL (7-18); CO2 28 mmol/L (21-32); GLUCOSE,RANDOM 60 mg/dL (74-106)
[2023-06-16 08:43] LABS: CREATININE 1.2 mg/dL (0.55-1.3); SGOT/AST 14 U/L (15-37); SGPT/ALT 19 U/L (13-61)
[2023-06-16 08:45] LABS: BILIRUBIN,TOTAL 0.4 mg/dL (0.2-1); TOT PROT 7.7 g/dl (6.4-8.2)
[2023-06-16 08:46] LABS: ALK PHOS 89 U/L (45-117)
[2023-06-16] MEDS: PRENATAL VITAMINS W/ FOLIC ACID TABLET (FP) PO SCH (10:03)
[2023-06-16] MEDS ORDERED: LORazepam 1 MG TABLET PO PRN (10:45)
[2023-06-16] MEDS: LORazepam 2 MG TABLET PO SCH ×3 (11:45→22:47)
[2023-06-16] MEDS: MELATONIN 5 MG TABLETS PO SCH (22:46)
[2023-06-16] MEDS: THIAMINE HCL 100 MG TABLET (FP) PO SCH (22:47)
[2023-06-17] MEDS: LORazepam 2 MG TABLET PO SCH ×4 (05:18→22:23)
[2023-06-17] MEDS: PRENATAL VITAMINS W/ FOLIC ACID TABLET (FP) PO SCH (10:03)
[2023-06-17] MEDS: MELATONIN 5 MG TABLETS PO SCH (22:24)
[2023-06-17] MEDS: THIAMINE HCL 100 MG TABLET (FP) PO SCH (22:24)
[2023-06-18] MEDS ORDERED: LORazepam 1 MG TABLET PO SCH (05:00)
[2023-06-18 06:56] VITALS: BP 118/75; PULSE 84; RESP 17; TEMP 98.9
[2023-06-19] MEDS ORDERED: LORazepam 0.5 MG TABLET PO PRN
[2023-06-19] MEDS ORDERED: LORazepam 0.5 MG TABLET PO SCH (05:00)
[2023-06-20] MEDS ORDERED: LORazepam 0.5 MG TABLET PO ONE (05:00)
== END 2023-06-18 09:00 | disposition left against medical advice (07) | DRG 894 ==
LOC: YASAS 22:46 → Y3N 06-16 01:43
PROVIDERS: ADMIT Allergy & Immunology; ATTEND Surgery
PROC: HZ2ZZZZ Detoxification Services for Substance Abuse Treatment (ICD-10-PCS; principal; 2023-06-16)
DX: F10.230 Alcohol dependence with withdrawal, uncomplicated (principal); F14.20 Cocaine dependence, uncomplicated; F12.20 Cannabis dependence, uncomplicated; F31.9 Bipolar disorder, unspecified; Z87.891 Personal history of nicotine dependence; Z86.11 Personal history of tuberculosis; Z86.19 Personal history of other infectious and parasitic diseases; Z88.0 Allergy status to penicillin; Z88.8 Allergy status to other drugs, medicaments and biological substances
CPT/HCPCS: 36415; 80053; 80307; 85027; 86593; 86780; 87635; 87811

== ENCOUNTER 2024-09-03 18:01 | Inpatient (IN) | payer OTHER ==
[2024-09-03 18:23] VITALS: BMI 25.9
[2024-09-03] MEDS ORDERED: POLYETHYLENE GLYCOL (HEALTHYLAX) 3350 17 GM PACKET PO PRN (19:19)
[2024-09-03] MEDS ORDERED: MAGNESIUM HYDROX 2400MG/30ML ORAL SUSPENSION 30 ML CUP PO PRN (19:19)
[2024-09-03] MEDS ORDERED: BENZOCAINE/MENTHOL (CHLORASEPTIC ) LOZENGE MM PRN (19:19)
[2024-09-03] MEDS ORDERED: BISMUTH SUBSALICYLATE 524 MG/30 ML PO PRN (19:19)
[2024-09-03] MEDS ORDERED: MAG HYDROX/AL HYDROX/SIMETH 30 ML UNIT-DOSE CUP PO PRN (19:19)
[2024-09-03] MEDS ORDERED: METHOCARBAMOL 500 MG TABLET PO PRN (19:19)
[2024-09-03] MEDS ORDERED: NALOXONE (NARCAN) HCL 4 MG/0.1 ML SPRAY NS PRN (19:19)
[2024-09-03] MEDS ORDERED: LOPERAMIDE HCL 2 MG CAPSULE PO PRN (19:19)
[2024-09-03] MEDS ORDERED: IBUPROFEN 400 MG TABLET (FP) PO PRN (19:19)
[2024-09-03] MEDS ORDERED: guaiFENesin 600 MG TABLET.ER (FP) PO PRN (19:19)
[2024-09-03] MEDS ORDERED: BENZONATATE 200 MG CAPSULE PO PRN (19:19)
[2024-09-03] MEDS ORDERED: ACETAMINOPHEN 325 MG TABLET (FP) PO PRN (19:19)
[2024-09-03] MEDS ORDERED: ONDANSETRON *ODT* 4 MG TABLET SL PRN (19:19)
[2024-09-03] MEDS ORDERED: DICYCLOMINE HCL 10 MG CAPSULE PO PRN (19:19)
[2024-09-03] MEDS ORDERED: hydrOXYzine PAMOATE 25 MG CAPSULE (FP) PO PRN (19:19)
[2024-09-03] MEDS ORDERED: IBUPROFEN 600 MG TABLET (FP) PO ONE (20:18)
[2024-09-03] MEDS: IBUPROFEN 600 MG TABLET (FP) PO PRN (20:21)
[2024-09-03] MEDS: THIAMINE 100 MG TABLET PO SCH (21:53)
[2024-09-03] MEDS: MELATONIN 5 MG TABLETS PO SCH (21:53)
[2024-09-04] MEDS: PRENATAL VITAMINS W/ FOLIC ACID TABLET (FP) PO SCH (09:55)
[2024-09-04 11:27] LABS: HEMOGLOBIN 11.7 g/dL (13.7-17.5); MCHC 30.8 g/dl (32.3-36.5); MEAN CELL VOLUME 85.2 fl (79.0-92.2); MEAN PLT VOLUME 11.1 fl (9.4-12.4); PLATELET COUNT 266 x10^3/uL (163-337); RDW 15.1 % (12.2-16.4)
[2024-09-04 12:02] LABS: CHLORIDE 101 mmol/L (98-107); POTASSIUM 4.2 mmol/L (3.5-5.1); SODIUM 140 mmol/L (136-145)
[2024-09-04 12:13] LABS: CALCIUM 8.7 mg/dL (8.5-10.1)
[2024-09-04 12:14] LABS: ALBUMIN 3.2 g/dl (3.4-5.0); ANION GAP 10 mmol/L (4-13); BLOOD UREA NITROGEN 19.9 mg/dL (7-18); CO2 29 mmol/L (21-32); GLUCOSE,RANDOM 74 mg/dL (74-106)
[2024-09-04 12:15] LABS: SGOT/AST 20 U/L (15-37); SGPT/ALT 13 U/L (13-61)
[2024-09-04 12:16] LABS: BILIRUBIN,TOTAL 0.4 mg/dL (0.2-1)
[2024-09-04 12:17] LABS: ALK PHOS 107 U/L (45-117); CREATININE 1.3 mg/dL (0.55-1.3); TOT PROT 6.8 g/dl (6.4-8.2)
[2024-09-04] MEDS: NALTREXONE HCL 50 MG TABLET PO ONE (14:19)
[2024-09-05 07:09] VITALS: TEMP 97.6
[2024-09-05 09:01] VITALS: BP 144/93; PULSE 104; RESP 20
[2024-09-05] MEDS: NALTREXONE HCL 50 MG TABLET PO SCH (10:22)
== END 2024-09-05 09:51 | disposition home or self-care (01) | DRG 897 ==
LOC: YASAS 18:01 → Y6N 19:59
PROVIDERS: ADMIT Neuromusculoskeletal Medicine & OMM; ATTEND Allergy & Immunology
PROC: HZ2ZZZZ Detoxification Services for Substance Abuse Treatment (ICD-10-PCS; principal; 2024-09-03)
DX: F10.20 Alcohol dependence, uncomplicated (principal); F14.20 Cocaine dependence, uncomplicated; Z59.00 Homelessness unspecified; F12.20 Cannabis dependence, uncomplicated; F31.9 Bipolar disorder, unspecified; Z87.891 Personal history of nicotine dependence; Z86.11 Personal history of tuberculosis
CPT/HCPCS: 36415; 71045-TC-FY; 80053; 80305; 80307; 85027; 86593; 86780; 93005; 93010